=== PATIENT | female | born 1980 | race Caucasian/White ===

== ENCOUNTER 2017-12-24 15:32 | Emergency (ER) | payer OTHER, SELFPAY ==
[2017-12-24 15:34] VITALS: BP 196/114; PULSE 79; RESP 18; TEMP 36.5; O2SAT 99; BMI 34.7
[2017-12-24 15:47] VITALS: PULSE 74; RESP 20; O2SAT 99
--- NOTE | 2017-12-24 15:47 | EKG12_ITS ---
Test Reason : DIZZINESS Blood Pressure : / mmHG Vent. Rate : 067 BPM Atrial Rate : 067 BPM P-R Int : 172 ms QRS Dur : 090 ms QT Int : 406 ms P-R-T Axes : 034 010 042 degrees QTc Int : 429 ms Normal sinus rhythm Normal ECG No previous ECGs available Confirmed by TEO TIDWELL MD ([id number]), technical editor RAYSHAWN ESCALANTE ([id number] on 01/03/2018 3:29:51 PM Referred By: HAILEE
--- NOTE | 2017-12-24 15:59 | ED.RN ---
NO OLD EKG
[2017-12-24] MEDS: 0.9% Normal Saline 1,000 ML 150 ML IV (16:09)
--- NOTE | 2017-12-24 16:16 | ED.VISSUMM ---
- ER Visit Summary Date of Service: 12/24/17 Chief Complaint: Lightheaded and dizzy History of Present Illness: The patient is a 37 F with no primary care physician. She reports that she has had episodes where she has been dizzy over the past week. She still does describe this as a spinning sensation. She states that it resolves with sitting down. She reports she has left ear pain that is 3 out of 10 in severity. No ringing or roaring in her ears. No change in her hearing. No double vision or slurred speech. She does report that she is nauseated during these episodes, but has not vomited. They last minutes at a time. No personal history of DVT or recent travel. She is not on control pills. No ankle swelling or calf pain. She reports that she has been lightheaded. This does seem to worsen when she is standing and exerting herself. She feels more short of breath than usual. She denies any chest pain or cough. She does report that she is having intermittent palpitations. She describes these as a fluttering that lasts minutes at a time and occur multiple times per day. She has had no fever or chills. Complains of a sore throat that is 3 out of 10 severity. Denies any abdominal pain, vomiting, diarrhea, melena, or hematochezia. She complains of a headache that has been present for the past 2 weeks. Is 2 out of 10 severity at this time. Is 9 out of 10 at worst. She has had similar headaches previously. She was seen at the urgent care and was told that she has a heart murmur. This had not been documented previously and she was sent to the emergency department for evaluation. Physical Examination: Vitals: Stable. Afebrile. General: Well-nourished and well-developed. Head: Normocephalic atraumatic. HEENT: TMs show serous effusions bilaterally with no evidence of otitis media. Auditory canals are normal. No pharyngeal erythema or tonsillar exudate. No cervical lymphadenopathy. Neck: Supple, no lymphadenopathy. No JVD. Nontender. Cardiovascular: Regular rate and rhythm. No murmurs. Respiratory: No respiratory distress. Clear to auscultation bilaterally. Abdominal: Soft, nontender, nondistended, normal bowel sounds. No guarding, rebound, or peritoneal signs. Back: Nontender. Extremities: Nontender, no edema. Skin: Normal color, erythematous rash to the maxilla bilaterally. Neurologic: Alert and oriented ?3. Cranial nerves II through XII are intact. Normal strength and sensation. Psych: Normal affect. Test Results: EKG is sinus at 67 with no acute changes. There is no old EKG for comparison. CBC is normal. Chem-7 is normal. Troponin is negative. test is negative. Chest x-ray is normal. Emergency Department Course and Treatment: I discussed the heart murmur with the patient. I do not hear a murmur. I had the patient hold her breath and I still do not hear a murmur. The patient had negative orthostatic vital signs while here. However, her blood pressure was elevated throughout. Repeat blood pressure while at rest is 160/95. Treatment Plan: I had a prolonged discussion with patient about possibility of starting antihypertensive medications. She reports that at home her blood pressure typically runs 120/80 and she does not want to be placed on his medications at this time. She will be discharged instructions to follow-up Dr. Gill, whose Was for no doc, in 1 week for repeat evaluation of her blood pressure. Return to the emergency department for any worsening symptoms or concerns. Disposition: To home in improved and stable condition. Impression: 1. Hypertension. 2. Vertigo, peripheral. 3. Serous effusions bilaterally. This note was generated with [employer] dictation software. It may contain incorrect words, spelling, and punctuation that were not noted in review of the chart prior to signing ED Disposition - Plan for ED Patient: Disposition: Home or Assisted Living Chief Complaint: Dizziness Instructions: ED Hypertension Poss Referrals: Niki Hill MD [STAFF PHYSICIAN] - 1 Week
--- NOTE | 2017-12-24 16:20 | RAD_ITS ---
STUDY: X-RAY CHEST REASON FOR EXAM: Female, 37 years old. Dizziness TECHNIQUE: PA and lateral views of the chest. COMPARISON: None. FINDINGS: No focal consolidation is visualized. There are EKG leads overlying the thorax. Normal size heart. Normal mediastinum and ricky. Normal visualized pulmonary arteries. Normal visualized aortic arch and descending thoracic aorta. Normal visualized thoracic spine. Normal visualized ribs, clavicles, and shoulders. There is no demonstrated abnormality of the visualized soft tissue structures of the upper abdomen. RAD/Chest PA and Lateral IMPRESSION: No acute cardiopulmonary process. Electronically Signed: Gabi Valderrama MD at 16:59 EST Tel , Service support ,
[2017-12-24 16:39] LABS: Absolute Lymphocyte Count 3.08 X10^3/ul (0.83-4.51); Absolute Neutrophil Count 4.3 X10^3/uL (2.0-7.7); Basophil# 0.02 X10^3/uL; Basophil% 0.2 % (0-1); Eosinophil# 0.27 X10^3/uL; Eosinophils% 3.2 % (0-5); Hematocrit 43.1 % (37-47); Hemoglobin 14.8 g/dl (12.0-15.0); Lymphocyte # 3.08 X10^3/ul (4.0); Lymphocyte % 36.9 % (19-41); Mean Corp Hgb Conc 34.3 g/gl (32-36); Mean Corpuscular Hgb 28.8 pg (27.0-32.0); Mean Corpuscular Volume 83.9 fL (81-99); Mean Platelet Vol. 10.3 fl (6.2-12.0); Monocyte# 0.62 X10^3/uL; Monocyte% 7.4 % (0-10); Neutrophil # 4.34 X10^3/uL (2.7-7.7); Neutrophil % 52.1 % (47-70); Platelet Count 246 K/mm3 (150-450); RBC Distribution Width CV 13.1 % (11.6-14.6); Red Blood Count 5.14 M/mm3 (4.2-5.4); White Blood Count 8.4 K/mm3 (4.4-11.0)
[2017-12-24 16:41] LABS: POSITIVE COUNT NO; POSITIVE DIFFERENTIAL NO; POSITIVE MORPHOLOGY NO
[2017-12-24 16:42] VITALS: BP 183/107; BP 205/106; BP 219/124; PULSE 68; PULSE 73; PULSE 76
[2017-12-24 16:57] LABS: Anion Gap 8 (5-15); BUN 10 mg/dL (7-18); BUN/Creat Ratio 13.9 RATIO (10-20); Chloride 105 mmol/L (98-107); Creatinine, Serum 0.72 mg/dL (0.55-1.02); EST Glomerular Filtration Rate 96 mL/min (>60); Est Glom Filt Rate - Afr Amer 116 mL/min (>60); Estimated Creatinine Clearance 99.18 ml/min; Glucose 79 mg/dL (74-106); Potassium 3.5 mmol/L (3.5-5.1); Sodium Level 139 mmol/L (136-145)
[2017-12-24 16:58] LABS: Pregnancy, Serum, hCG Quali. NEGATIVE Negative (0-9 Nonpreg)
[2017-12-24 17:52] VITALS: BP 160/95; PULSE 78; RESP 17; O2SAT 97
== END 2017-12-24 17:58 | disposition home or self-care (01) ==
PROVIDERS: Emergency Provider Emergency Medicine
DX: I10 Essential (primary) hypertension (principal); R42 Dizziness and giddiness; R21 Rash and other nonspecific skin eruption; H65.93 Unspecified nonsuppurative otitis media, bilateral
CPT/HCPCS: 71046; 80048; 84484; 84703; 85025; 93005; 96360; 96361; 99285; J7030; A4216

== ENCOUNTER → 2018-01-18 11:29 | Outpatient (CLI) | payer OTHER, SELFPAY ==
[2018-01-18 11:34] LABS: Bacteria 0 SEEN /hpf (None Seen); Red Blood Cells-Urine 0 SEEN /hpf (0-5); White Blood Cells 0 SEEN /hpf (0-5)
[2018-01-18 14:25] LABS: Hemoglobin A1c 5.4 % (4.2-6.3)
[2018-01-18 14:29] LABS: AST(SGOT) 16 U/L (15-37); Alanine Aminotransfer ALT/SGPT 37 U/L (13-56); Alkaline Phosphatase 83 U/L (45-117); Bilirubin, Direct 0.06 mg/dL (0.00-0.30); Cholesterol 221 mg/dL (200); Globulin 3.8 g/dL (2.2-4.2); High Density Lipoprotein 49 mg/dL; Protein, Total 7.8 g/dL (6.4-8.2); Thyroid Stim Hormone (TSH) 0.97 uIU/mL (0.358-3.74); Triglycerides 239 mg/dL; Very Low Density Lipoprotein 48 mg/dL (5-40)
[2018-01-18 15:51] LABS: Color, Urine Yellow (Yellow); Glucose, Dipstick Normal (Normal); Ketone-Dipstick Negative (Negative); Leukocyte Esterase-Dipstick Negative /ul (Negative); Nitrite-Dipstick Positive (Negative); Occult Blood-Urine Negative /ul (Negative); Protein-Dipstick Negative (Negative); Specific Gravity, Urine 1.015 (1.002-1.030); Urine Bilirubin Dipstick Negative (Negative); Urine Clarity Clear (Clear); Urine Urobilinogen Normal (Normal)
[2018-01-18 16:14] LABS: Mucous, Urine 1+ /hpf (<or=2+); Squamous Epithelial Cells - UA 0-5 SEEN /hpf (5-10)
== END ==
PROVIDERS: Family Provider Family Medicine; PCP Family Medicine; Visit Provider Family Medicine
DX: E66.9 Obesity, unspecified (principal); Z86.32 Personal history of gestational diabetes; I10 Essential (primary) hypertension
CPT/HCPCS: 36415; 80061; 80076; 81001; 83036; 84443

== ENCOUNTER 2023-11-19 05:12 | Day surgery (SDC) | payer OTHER, SELFPAY ==
--- NOTE | 2023-11-08 11:53 | PCM.HP.BLA ---
History and Physical Date of Admission: 11/19/23 The patient is a 43 year old female presenting for pre-operative visit. She is scheduled for TLH, bilateral salpingectomy and cystocopy, for menorrhagia, dysmenorrhea, plevic pain and adenomyosis on 11/19/23. Procedure discussed along with risks, benefits and complications. Other alternatives discussed for management. Consent form signed? Yes. ? ? PAST MEDICAL HISTORY PAST MEDICAL HISTORY Diagnosis Date ? Abnormal Pap smear of cervix ? ? Skin cancer ? ? squamous cell on chest ? ? PAST SURGICAL HISTORY PAST SURGICAL HISTORY Procedure Laterality Date ? DELIVERY ONLY ? ? ? , low cervical- x2 ? COLPOSCOPY CERVIX UPPER/ADJACENT VAGINA ? 2002 ? Colposcopy-with cryo ? CONIZATION CERVIX W/WO D&C RPR ELTRD EXC ? 06/05/2003 ? LEEP-Cervix ? INSERTION OF IUD ? 02/2023 ? PAST SURGICAL HISTORY OF ? 10/2008 ? removal of skin cancer on chest ? PAST SURGICAL HISTORY OF ? 05/2009 ? Right Foot Surgery ? TUBAL LIGATION ? CURRENT MEDICATIONS Current Outpatient Medications Medication Sig Dispense Refill ? valACYclovir (VALTREX) 500 mg tablet Take 1 tablet by mouth once daily. 1 tablet twice daily prn outbreak x 3d then 1 daily for suppression 90 tablet 3 ? levonorgestrel (MIRENA) 21 mcg/24 hours (8 yrs) 52 mg IUD 1 Each by INTRAUTERINE route as directed. 1 Each 0 ? No current facility-administered medications for this visit. ? ? ALLERGIES: Sulfa (Sulfonamide Antibiotics) ? PERSONAL HISTORY: SOCIAL HISTORY Social History ? Tobacco Use ? Smoking status: Former ? ? Packs/day: 0.50 ? ? Years: 18.00 ? ? Additional pack years: 0.00 ? ? Total pack years: 9.00 ? ? Types: Cigarettes ? ? Quit date: 09/16/2010 ? ? Years since quittin.1 ? Smokeless tobacco: Never Vaping Use ? Vaping Use: Never used Substance Use Topics ? Alcohol use: Yes ? ? Comment: Rare,NOT WHILE ? Drug use: No ? FAMILY HISTORY: FAMILY HISTORY FAMILY HISTORY Problem Relation Age of Onset ? Hypertension Mother ? ? Emphysema Mother ? ? Thyroid Mother ? ? other (covid) Father ? ? Hypertension Brother ? ? Emphysema Maternal Grandfather ? ? ? REVIEW OF SYMPTOMS: GENERAL: denies fevers or chills ENDOCRINOLOGY: has not been on steroids Cardiology : denies palpitations or chest pain Respiratory: denies SOB or cough Hematology: denies history of prolonged bleeding or easy bruising or VTE Allergy: Denies history of personal or family history of allergy to anesthesia ? PHYSICAL EXAMINATION: ? VITALS: Blood pressure 136/92, pulse 86, resp. rate 16, height 5' 6 (1.676 m), weight 197 lb (89.4 kg), last menstrual period 10/02/2023, SpO2 99%. ? GENERAL: The patient is well nourished, well hydrated in no acute distress. , The patient is oriented to time, place, and person. NECK: Supple. No lynphadenopathy, normal thyroid, no thyromegaly. LUNGS: Clear to auscultation bilaterally. no wheezes, rhonchi or rales HEART: Regular rate and rhythm, Normal heart sounds, and No murmurs or gallops ? Pap 01/2022 neg ? EMB- 02/2023 benign pelvic US 09/2023: ? Uterus: -Size: 9.8 x 4.8 x 5.7 cm -Orientation: Anteverted -Endometrial echo complex: Evaluation of the endometrium was adequate. No endometrial abnormality. The endometrial echo complex measured 0.7 cm. IUD is in good position within the endometrium -Cervix: Nabothian cysts present, otherwise unremarkable. ?Additional echogenic foci within the cervix with shadowing may represent calcific foci -Adenomyosis assessment: Globular uterine shape. ?Heterogeneous myometrium.. ?Myometrial or endometrial interface is indistinct. -Fibroids: There are no fibroids. Right Ovary: 2.8 x 2.3 x 2.2 cm Normal appearance Left Ovary: 3.7 x 2.4 x 2.4 cm Normal appearance ? IMPRESSION: menorrhaiga, dysmenorrhea, pelvic pain and adenomyosis ? PLAN: The risks/benefits/alternatives and personal involved for the planned TLH, bilateral salpingectomy and cystoscopy were reviewed with the patient. Her questions were answered to her satisfaction and she desires to proceed. Consent was signed. I reviewed with her postop instructions and expectations. ? ? I have reviewed and updated past medical and surgical history, medications and allergies Assessment & Plan Assessment/Plan (1) Menorrhagia: (2) Dysmenorrhea: (3) Chronic pelvic pain in female: (4) Adenomyosis:
[2023-11-15 08:40] LABS: Absolute Lymphocyte Count 2.43 X10^3/uL (0.83-4.51); Absolute Neutrophil Count 4.3 X10^3/uL (2.0-7.7); Basophil# 0.02 X10^3/uL; Basophil% 0.3 % (0-1); Eosinophils% 1.4 % (0-5); Hematocrit 42.4 % (37-47); Lymphocyte # 2.43 X10^3/ul (0.83-4.51); Lymphocyte % 33.1 % (19-41); Mean Corpuscular Hgb 28.2 pg (27.0-32.0); Mean Corpuscular Volume 85.3 fL (81-99); Mean Platelet Vol. 10.3 fl (6.2-12.0); Monocyte# 0.49 X10^3/uL; Monocyte% 6.7 % (0-10); NRBC Flagged by Analyzer 0 % (0-5); Neutrophil # 4.28 X10^3/uL (2.7-7.7); Neutrophil % 58.2 % (47-70); Platelet Count 243 K/mm3 (150-450); RBC Distribution Width CV 12.8 % (11.6-14.6); RBC Distribution Width SD 39.6 fl (35.1-43.9); Red Blood Count 4.97 M/mm3 (4.2-5.4); White Blood Count 7.3 K/mm3 (4.4-11.0)
[2023-11-15 09:09] LABS: Magnesium 2.2 mg/dL (1.6-2.6)
[2023-11-19] VITALS (10 sets, daily range): BP systolic 112–140; BP diastolic 68–88; PULSE 45–84; RESP 16; TEMP 36–36.9; O2SAT 92–100; BMI 32.3
[2023-11-19 05:49] LABS: Internal QC Validated? YES +Cl - CLEAR BKGD; Pregnancy, Urine Negative Negative
[2023-11-19] MEDS: Lactated Ringers 1,000 ML 40 ML IV (05:59)
[2023-11-19] MEDS: Phenazopyridine 95 MG Tablet 190 MG PO (05:59)
[2023-11-19] MEDS: Magnesium 1 GM over 15 mins IV (05:59)
[2023-11-19] MEDS: Gabapentin 600 MG Tablet PO (06:00)
[2023-11-19] MEDS: Enoxaparin 40 MG/0.4 ML Syringe SC (06:00)
[2023-11-19] MEDS: Acetaminophen 500 MG Tablet 1000 MG PO (06:00)
[2023-11-19] MEDS: Celecoxib 200 MG Capsule 400 MG PO (06:00)
[2023-11-19 06:01] LABS: Bedside Glucose 100 mg/dL (74-106)
[2023-11-19] MEDS: Scopolamine 1mg/72hr Patch 1 PATCH TD (06:01)
[2023-11-19] MEDS: Cefazolin 2 GM in 0.9% Normal Saline (100mL Bag) 100 ML IV (07:30)
--- NOTE | 2023-11-19 07:30 | HYST_PTH ---
PATHOLOGY RESULTS PATIENT: LAURA LAGUERRE LOC: [facility] [place] U#:[id number] AGE/SX: 43/F ROOM: RE11/19/[address]: Dr. Zuleyma Ayon MD : [id number] BED: DIS: 11/19/2023 SPEC #: [id number] RECD: 11/19/23 13:11 STATUS: REHAN GANNON #: [id number] BAMBI: 11/19/23 07:[address]: Zuleyma Ayon DEPT: SURGICAL PATHOLOGY RECD BY: Stephanie Jacobsen ENTERED: 11/19/23 13:51 SP TYPE: HYSTERECT OTHR DR: MD Dr. Jesus Wiley MD Tissues: Uterus, NOS Procedures: Surgery Specimen Level V HEADER OPERATION: ERAS, total laparoscopic hysterectomy, bilateral salpingectomy PRE-OP DIAGNOSIS: Menorrhagia, dysmenorrhea, pelvic pain, adenomyosis TISSUE SUBMITTED: Uterus, cervix, bilateral fallopian tubes MICROSCOPIC DIAGNOSIS Uterus, hysterectomy: Cervix - nabothian cysts and minimal chronic inflammation. Endometrium - transition endometrium. Myometrium - adenomyosis. Right and left fallopian tubes - No pathologic change. AM:deanna 11/22/2023 MICROSCOPIC DESCRIPTION Slides are reviewed. GROSS DESCRIPTION Received in fixative is one container labeled with the patient's name and designated uterus, cervix, bilateral fallopian tubes. The specimen consists of a hysterectomy specimen, previously opened, consisting of uterus with cervix and detached bilateral fallopian tubes. The uterus with cervix weighs 111 gm and measures 10.0 x 5.5 x 5.0 cm. The right cornu shows two Filshie clips. A fallopian tube without Filshie is also present, presumed to be right fallopian tube. The second fallopian tube is present with two Filshie clips and measures 4.0 cm in length and 0.5 cm in diameter, presumed to be left. Detached portion of fallopian tube with fimbrial end is present measuring 2.0 cm in length and 0.7 cm in diameter. Two Filshie clips are noted on the presumed left fallopian tube. The Filshie clips are intact. The right fallopian tube measures 3.0 cm in length and 0.8 cm in diameter. The serosal surface is hopkins, glistening and unremarkable. The ectocervical mucosa is unremarkable. The external os is circular in contour. The endocervical canal measures 3.0 cm in length and the endocervical mucosa is hopkins, glistening and unremarkable. Sections of cervix reveal cysts filled with yellowish mucoid material. The triangular endometrial cavity measures 5.0 cm in length and up to 2.5 cm in width. The endometrium is hopkins, glistening without any mass lesion and measures 0.1 cm in thickness. Sections of the uterine wall do not reveal any mass lesion and measures up to 2.5 cm in thickness. The presumed right fallopian tube measures 3.5 cm in length and 0.7 cm in diameter. Sections reveal unremarkable cut surfaces. Sections of presumed left fallopian tube reveal unremarkable cut surfaces. Diamond Die Driller sections are submitted in eight cassettes as follows: 1 - anterior cervix, 2 - posterior cervix, 3 & 4 - anterior uterine wall, 5 & 6 - posterior uterine wall, 7 - presumed right fallopian tube, 8 - presumed left fallopian tube. / MAX:deanna 11/19/2023 TC:5 CPT: 32707
[2023-11-19] MEDS: Bupivacaine Mpf 0.5% 30 ML VIAL (08:05)
--- NOTE | 2023-11-19 09:33 | DCINST_ITS ---
Discharge Instructions Diet Discharge Diet: Light diet - advance as tolerated Activity Discharge Activity: May Not Drive (while on pain medications) and May Shower (on 11/20/23) May resume sexual activity in: 6-8 weeks and - (Nothing in your vagina for 6 weeks. No vaginal or anal intercourse for 6-8 weeks) Dressing / Incision Call your doctor if your incision/area has: Continuous Slow Oozing Call your doctor if you observe: Fever of 101 or Higher, Inability to urinate and Using more than 1 pad per hour Remove Dressing in: leave until fall off Cleanse incision/area with: - (Your incisions have skin glue, it can get wet, leave the glue on until it falls off. You can wash with soap and water) Follow Up Care Please Follow Up With: Zuleyma Ayon MD When: With my office in 1a nd 6 weeks or as needed. Call [phone] or send a [employer] message for non urgent issues Test Results: Test results from this visit will be discussed in further detail at your follow- up appointment, if applicable. Discharge Plan Admission Primary Reason for Your Visit: Laparoscopic Hysterectomy with bilateral salpingectomy Attending Provider: Zuleyma Ayon Primary Care Provider: Jesus Fountain Consulting Providers: Yaniv Moreau Discharge Orders/Prescriptions Prescriptions: New ibuprofen [ibuprofen] 600 MG tablet 600 mg PO Q6H PRN (Reason: Pain) 20 Days Qty: 40 1RF oxycodone 5 MG tablet 5 mg PO Q6H PRN PRN (Reason: severe pain) 5 Days Qty: 10 0RF acetaminophen [Acetaminophen Extra Strength] 500 mg tablet 1,000 mg PO Q6H PRN (Reason: fever or pain) 20 Days Qty: 40 1RF Referrals / Follow Up: Jesus Fountain MD [Primary Care Provider] - Disposition Disposition (needs filled in before D/C Order can be placed): Home, Self Care
--- NOTE | 2023-11-19 09:35 | OP.PCM_ITS ---
Problems Associated Problem List Diagnoses (1) Adenomyosis: (2) Chronic pelvic pain in female: (3) Dysmenorrhea: (4) Menorrhagia: Report of Operation Date of Procedure: 11/19/23 Pre-Operative Diagnosis: Adenomyosis, chronic pelvic pain, Dysmenorrhea, menorrhagia Post-Operative Diagnosis: Same Surgery/Procedure Performed:: TLH, bilateral salpingectomy Description of Surgical Findings:: normal sized uterus and cervix, normal vagina Surgeon: Zuleyma Ayon mechanical engineering technician: Anne Dent mechanical engineering technician: Misha Cifuentes [id number] Type of Anesthesia: General Anesthesiologist: Bora Zapata Special Medications: none Specimen's removed: bilateral fallopian tubes, cervix and uterus Drains: none Estimated Blood Loss (mL): 100 Fluids Replaced: 1500 Description of Procedure: The patient was taken to the operating room where she was prepped and draped in the dorsal lithotomy position. Her arms were tucked to the side and padded and her legs were placed in the yellowfin stirrups. Care was taken to ensure that she was placed in a neurologically safe and neutral position. A weighted speculum was placed in the vagina and the anterior lip of the cervix was grasped with a single-tooth tenaculum. The cervix sounded to 9 centimeters. 2-0 Vicryl sutures were secured to the cervix at 3 and 9:00. The uterine remotely piloted vehicle controller 3 cm size was placed into the cervix and the balloon inflated. The stay sutures were placed through the cup and secured down to the cervix. A Lopez was placed to straight drain. Attention was turned to the abdominal portion of the case. Before skin incisions were made they were infiltrated with 0.5% Marcaine solution for local anesthetic. A 5 mm intraumbilical incision was made and while tenting the anterior abdominal wall up with towel clamps a 5 mm blade less trocar and sleeve were advanced directly into the peritoneal cavity using the Visiport. Peritoneal placement was confirmed with the laparoscope the pneumoperitoneum was created, and the underlying abdominal contents were intact. The patient was placed in Trendelenburg and the above findings were noted. Right and left lateral 5 mm trochars were placed under direct visualization without difficulty. The antimesenteric portion of the tube was clamped sealed and transected serially on both sides with the LigaSure device. The round ligaments were clamped sealed and transected and a window was made in the peritoneum. The utero-ovarian ligaments were then clamped sealed and transected with the LigaSure device and the pedicles were hemostatic The bladder flap was dissected down with the LigaSure device and blunt dissection and the uterine arteries were then skeletonized. The uterine arteries were clamped sealed and transected on both sides with the LigaSure device. Then along the cardinal ligament uterine arteries adjacent to the cervix were clamped sealed and transected with the LigaSure device to move them away from the vaginal cuff angle. At this point the pedicles were all examined and found to be hemostatic. The bladder flap was rechecked and found to be adequately down. The monopolar tip of the LigaSure device was then used to enter the anterior vagina. The vaginal manipulator cup was noted in the vaginal colpotomy incision was made circumferentially around the cup. When the 3 and 9:00 positions of the cervicovaginal junction were reached these were clamped sealed and transected with the LigaSure device to secure any small remaining vessels. At this point the pedicles were hemostatic from above and attention was turned to the vaginal portion of the case again. The uterus was brought intact out through the vaginal colpotomy incision along with the tubes There was a bleeding blood vessel on the right side of the vaginal cuff which was clamped, oversewn with a suture ligature and secured and was hemostatic. Vaginal angle sutures were placed on both sides with 0 Vicryl sutures and care was taken to ensure that the uterosacral ligament was secured into this stitch. The remainder the vagina was then closed horizontally with interrupted 0 Vicryl sutures. The cuff was hemostatic vaginally. The Lopez catheter was removed and a cystoscopy was performed. The bladder appeared normal and was intact. Both ureteral orifices were noted and both ureteral jets were seen. The cystoscope was removed and the Lopez catheter was placed back to straight drain. A sponge stick was placed in the vagina to help place traction against the vaginal cuff and the pneumoperitoneum was re-created. The suction government minister was used to remove any blood and clots from the peritoneal cavity. The pedicles were reexamined and found to be hemostatic. The vaginal cuff was hemostatic. Some hemoblast was placed over the cuff and the pedicles and no active bleeding was noted through the [place]. The right and left lateral ports were taken out and the sites were hemostatic. The pneumoperitoneum was released and even under low pressure there was no bleeding of any of the pedicles are vaginal cuff. The umbilical port was removed. The umbilical skin incisions were closed with Monocryl suture and skin glue by Dr. Izaguirre. The vaginal instruments were removed by me and a vaginal sweep was completed by me. The surgery was performed by me with assistance other than the portions dictated as above. There were no qualified residents available for this procedure. All sponge lap and needle counts were correct and the patient was transferred to the recovery room in stable condition. Dr. Izaguirre help with tissue manipulation, camera guidance, and port placement and closure. No qualified residents were available for the procedure. Grafts/Implants Used: none Procedure Start Time: 07:55 Procedure Stop Time: 09:36 Complications none Admit VTE Documentation VTE Present on Admission: No VTE Mechan Device Prophylaxis: SCD's VTE Pharm Prophylaxis ordered?: No Reason prophylaxis not ordered:: Procedure Not Indicated
== END 2023-11-19 12:56 | disposition home or self-care (01) ==
LOC: SDC 05:12 → AC 05:14
PROVIDERS: Anesthesiology; PCP Family Medicine; Referring Provider Obstetrics & Gynecology; Visit Provider Obstetrics & Gynecology
PROC: 0UT94ZZ Resection of Uterus, Percutaneous Endoscopic Approach (ICD-10-PCS; CPT 58571; principal; 2023-11-19 07:10)
DX: N80.03 Adenomyosis of the uterus (principal); N92.0 Excessive and frequent menstruation with regular cycle; N94.6 Dysmenorrhea, unspecified; R10.2 Pelvic and perineal pain; G89.29 Other chronic pain; Z87.891 Personal history of nicotine dependence
CPT/HCPCS: 58571; 00840; 36415; 81025; 82962; 83735; 85025; 86850; 86900; 86901; 88307; J7120; J2405; J3475

== ENCOUNTER 2023-11-23 10:36 | Observation (INO) | payer OTHER, SELFPAY ==
[2023-11-23] VITALS (8 sets, daily range): BP systolic 117–149; BP diastolic 61–94; PULSE 56–72; RESP 14–64; TEMP 36.2–36.9; O2SAT 98–100; BMI 33.3; BMI 32.5
--- NOTE | 2023-11-23 11:14 | CT_ITS ---
STUDY: CT ABDOMEN AND PELVIS WITH CONTRAST REASON FOR EXAM: Female, 43 years old. Laparoscopic hysterectomy 11/19. Increased lower abdominal pain. RADIATION DOSAGE (If Supplied By Facility): CTDIvol = ( 19.06 ) mGy, DLP = ( 1141.61 ) mGycm TECHNIQUE: Transaxial images were obtained from the dome of the diaphragm to the symphysis pubis without oral contrast. ml of 100mL Isovue-300 contrast was administered. Sagittal and coronal images were reconstructed. Individualized dose optimization techniques were used for this CT. COMPARISON: Laparoscopic hysterectomy 11/19. Increased lower abdominal pain. FINDINGS: Trace bilateral pleural effusions are present in the lung bases. A small amount of perihepatic ascites is present. A small to moderate amount of ascites is present in the pelvis.. Small amounts of free air in the pelvis is consistent with recent surgical intervention. No encapsulated fluid collection is seen to suggest an abscess. Status post hysterectomy. Unremarkable bilateral adnexal regions. Curvilinear focus of high density seen adjacent to the right ovary could represent a small focus of hemorrhage although there is no visualized hemorrhage distal to this region or proteinaceous or hemorrhagic contents within a right ovarian cyst incompletely visualized on this study. Normal liver. There is a solitary gallstone. Normal spleen. Normal pancreas. Normal bilateral adrenal glands. Normal right kidney. Normal left kidney. Normal visualized stomach. Normal small intestine. Normal colon. The appendix is visualized and appears normal. There is no evidence of small bowel ileus or bowel obstruction. There is diffuse atherosclerotic calcification of the abdominal aorta, without a demonstrated aneurysm. Normal inferior vena cava. Normal retroperitoneum. Normal urinary bladder. Normal abdominal wall. Normal osseous structures. CT/Abdomen/Pelvis W IV Cont ONLY IMPRESSION: 1. A small amount of perihepatic ascites is present. A small to moderate amount of ascites is present in the pelvis.. Small amounts of free air in the pelvis is consistent with recent surgical intervention. No encapsulated fluid collection is seen to suggest an abscess. Status post hysterectomy. Unremarkable bilateral adnexal regions. 2. Curvilinear focus of high density seen adjacent to the right ovary could represent a small focus of hemorrhage although there is no visualized hemorrhage distal to this region or proteinaceous or hemorrhagic contents within a right ovarian cyst incompletely visualized on this study. 3. Gallstone. Electronically Signed: Dat Woods MD at 12:59 EST ,
--- NOTE | 2023-11-23 11:15 | EX.ED.DYSGE1 ---
HPI <LAMONTE Denton - Last Filed: 11/23/23 17:14> History of Present Illness Chief Complaint: Abd Pain Narrative Narrative: Patient is a 43-year-old female with no significant medical history who presents to the emergency department for lower abdominal pain. Patient had a hysterectomy 4 days ago on November [address] Gabo robledo at [facility]. Patient states that she was doing well, she got up this morning to use the restroom, when she got up and urinated, she felt a tearing sensation in her abdomen. Patient dates the pain was unbearable, she had to call the ambulance. The EMS gave her 4 mg of Zofran, 1 mg of Dilaudid. Patient does feel better, patient did have some low blood pressures in the squad. Patient states while she is at rest, she is not in any significant distress, patient has worsening pain to the left side. Denies any fever chills nausea or vomiting. PFSH <LAMONTE Denton - Last Filed: 11/23/23 17:14> [facility] Medical History (Updated 11/23/23 @ 16:[address] Russell Renee MD) Broken teeth Cancer Fatty liver Former smoker Heartburn Wears glasses Home Medications acetaminophen 500 mg tablet (Acetaminophen Extra Strength) 1,000 mg (2 x 500 mg) PO Q6H PRN FEVER/PAIN 20 days #40 tabs 11/19/23 [Rx Last Taken 11/22/23] ibuprofen 600 mg tablet 600 mg PO Q6H PRN PAIN 20 days #40 TABLETS 11/19/23 [Rx Last Taken 11/22/23] oxycodone 5 mg tablet 5 mg PO Q6H PRN SEVERE PAIN 11/23/23 [History Last Taken Unknown] Allergy/AdvReac Type Severity Reaction Status Date / Time Sulfa (Sulfonamide Allergy Anaphylaxis Verified 11/19/23 05:46 Antibiotics) Surgical History (Updated 11/23/23 @ 11:14 by Debbie Rod) History of section History of foot surgery History of surgical removal of skin lesion History of wisdom tooth extraction S/P partial hysterectomy Social History Smoking Status: Former smoker ROS <LAMONTE Denton - Last Filed: 11/23/23 17:14> ROS ED ROS Narrative Constitutional: Negative for fever, chills, weight loss, weakness Eyes: Negative for vision loss, vision change, double vision ENT: Negative for any sore throat, ear pain, congestion Cardiovascular: Negative for any chest pain, tightness, palpitations Respiratory: Negative for any cough, sputum production, hemoptysis, dyspnea, dyspnea on exertion, orthopnea Gastrointestinal: Negative for any vomiting, diarrhea, constipation, blood in stool, blood in vomit. Positive for abdominal pain, nausea : Negative for any urinary frequency, dysuria, retention, blood in urine Muscle skeletal: Negative for any myalgias, arthralgias, neck pain, back pain Neurological: Negative for any headache, syncope, paresthesias, dizziness Skin: Negative for any rashes, lumps, itching, abrasions, lacerations Psychiatric: Negative for any depression, anxiety, stress, suicidal ideation, homicidal ideation Hematologic: Negative for any easy bruising, excessive bruising, easy bleeding Allergies: Negative for any eczema, hives, rash EXAM <LAMONTE Denton - Last Filed: 11/23/23 17:14> Physical Exam Narrative Exam Narrative: Vital signs reviewed. HEET: Head normocephalic atraumatic, TMs clear bilaterally. Posterior pharynx is clear, moist mucous membranes. Nares clear bilaterally. Neck: Supple with no lymphadenopathy or tenderness. No signs of meningismus. Cardiac: Regular rate and rhythm no murmurs gallops or rubs, equal peripheral pulses bilaterally. Respiratory: Lungs clear to auscultation bilaterally. No chest tenderness. Abdomen: Soft, nondistended. No abdominal bruit or pulsatile masses. No hepatosplenomegaly. Patient has diffuse abdominal pain, patient's surgical incisions look well-appearing, there is no significant redness, there is no peritoneal signs, patient's belly is soft. Patient is active bowel sounds. No evidence of any drainage or cellulitis. Extremities: No peripheral edema, no signs of gross trauma or deformity. Active full range of motion of all extremities. Neuro: Cranial nerves II through XII intact, no focal neurological deficits. Skin: Clean dry and intact with no rash, purpura, petechiae, vesicles or pustules. Backs/flank: No CVA tenderness, no midline spinal tenderness, no deformity. Psych: Normal mood and affect. No SI, HI or acute psychosis. Const Vital Signs: 11/23/23 10:36 11/23/23 11:11 11/23/23 11:59 Temperature 97.1 F L Temperature Source Temporal Pulse Rate 56 L 67 62 Respiratory Rate 16 64 H 16 Blood Pressure 125/78 H 125/80 H 135/71 H Blood Pressure Mean 93 95 92 Pulse Ox 98 99 100 Oxygen Delivery Method Room Air Room Air 11/23/23 13:00 11/23/23 14:16 11/23/23 15:43 Temperature 98.4 F 97.5 F L Temperature Source Temporal Pulse Rate 72 72 65 Respiratory Rate 16 16 16 Blood Pressure 117/61 140/94 H 128/82 H Blood Pressure Mean 79 109 97 Pulse Ox 98 98 98 Oxygen Delivery Method Room Air Room Air Positive well nourished and well developed General Appearance ED: well developed <Dr. Russell Renee MD - Last Filed: 11/23/23 16:09> Physical Exam Const Vital Signs: 11/23/23 10:36 11/23/23 11:11 11/23/23 11:59 Temperature 97.1 F L Temperature Source Temporal Pulse Rate 56 L 67 62 Respiratory Rate 16 64 H 16 Blood Pressure 125/78 H 125/80 H 135/71 H Blood Pressure Mean 93 95 92 Pulse Ox 98 99 100 Oxygen Delivery Method Room Air Room Air 11/23/23 13:00 11/23/23 14:16 11/23/23 15:43 Temperature 98.4 F 97.5 F L Temperature Source Temporal Pulse Rate 72 72 65 Respiratory Rate 16 16 16 Blood Pressure 117/61 140/94 H 128/82 H Blood Pressure Mean 79 109 97 Pulse Ox 98 98 98 Oxygen Delivery Method Room Air Room Air MDM <LAMONTE Denton - Last Filed: 11/23/23 17:14> [facility] Lab Data Labs: Laboratory Results - last 24 hr 11/23/23 11/23/23 11:35 12:55 WBC 11.4 H RBC 4.86 Hgb 13.8 Hct 41.9 MCV 86.2 MCH 28.4 MCHC 32.9 RDW Std Deviation 40.3 RDW Coeff of Jessica 13.1 Plt Count 208 MPV 10.4 Immature Gran % (Auto) 0.300 Neut % (Auto) 76.4 H Lymph % (Auto) 12.9 L Forest % (Auto) 6.3 Eos % (Auto) 3.8 Baso % (Auto) 0.3 Absolute Neuts (auto) 8.7 H Absolute Lymphs (auto) 1.47 Nucleated RBC % 0 Sodium 139 Potassium 4.3 Chloride 108 H Carbon Dioxide 29.0 Anion Gap 2 L BUN 22 H Creatinine 1.60 H Estim Creat Clear Calc 51.69 Est GFR (MDRD) Af Amer 45 L Est GFR (MDRD) Non-Af 37 L BUN/Creatinine Ratio 13.8 Glucose 102 Lactic Acid 1.3 Calcium 8.7 Total Bilirubin 0.40 AST 17 ALT 39 Alkaline Phosphatase 67 Total Protein 6.5 Albumin 3.2 Globulin 3.3 Albumin/Globulin Ratio 1.0 Lipase 26 Urine Color Yellow Urine Clarity Sl. Cloudy Urine pH 6.5 Ur Specific Romulus 1.010 Urine Protein 15 H Urine Glucose (UA) Normal Urine Ketones Negative Urine Occult Blood 10 H Urine Nitrite Negative Urine Bilirubin Negative Urine Urobilinogen Normal Ur Leukocyte Esterase 25 H Urine RBC 0-5 SEEN Urine WBC 0-5 SEEN Ur Squamous Epith Cells 0-5 SEEN Urine Bacteria 0 SEEN Urine Mucus 0 SEEN Radiography Diagnostic Testing: Clinical Impression(s) from Imaging Studies Abdomen/Pelvis CT 11/23/23 11:14 IMPRESSION: 1. A small amount of perihepatic ascites is present. A small to moderate amount of ascites is present in the pelvis.. Small amounts of free air in the pelvis is consistent with recent surgical intervention. No encapsulated fluid collection is seen to suggest an abscess. Status post hysterectomy. Unremarkable bilateral adnexal regions. 2. Curvilinear focus of high density seen adjacent to the right ovary could represent a small focus of hemorrhage although there is no visualized hemorrhage distal to this region or proteinaceous or hemorrhagic contents within a right ovarian cyst incompletely visualized on this study. 3. Gallstone. Electronically Signed: aDt Woods MD at 12:59 EST , Intravenous Pyelogram 11/23/23 14:50 IMPRESSION: Negative IVP Electronically Signed: Baldev Salcido MD at 15:16 EST , Treatment and Re-Evaluation :: Patient appears to be in no obvious distress on my examination. Patient presents to the emergency department with complaints of abdominal pain, patient is 4 days post full hysterectomy. Patient did have the surgery done here. Differential diagnosis includes free air, abscess formation, postsurgical pain. Patient will receive basic laboratory values CBC, CMP, lipase as well as a lactic acid. CT scan of the abdomen pelvis with IV contrast will be ordered. Patient be given IV fluids. Patient is in a position of comfort after IV Dilaudid, Zofran given by squad. All radiologic examinations were read, reviewed by the emergency department attending. From these reads, a plan of care will be put in place. Patient CT scan shows small amount of perihepatic ascites is present. Small to moderate amount of ascites is present in the pelvis. Small amounts of free air in the pelvis which is consistent with recent surgical intervention. No encapsulated fluid collection is seen to suggest abscess. Curvilinear focus of high density seen adjacent to the right ovary could represent a small focus of hemorrhage although there is no visualized hemorrhage distal to the region of point a cyst or hemorrhagic contents. Gallstones. Patient's laboratory values shows a leukocytosis white blood count 11.4. Chemistry shows slight renal insufficiency with a creatinine of 1.6, patient was given 2 L normal saline. We did reach out to surgery both EXECUTIVE VICE PRESIDENT AND CHIEF OPERATING OFFICER who did the surgery as well as surgery here. The plan is to admit the patient. Patient did receive an intravenous pyelogram, this was a negative examination. At this time, patient is doing well with analgesics, patient will be seen here by surgery. Patient will be admitted. Stable <Dr. Russell Renee MD - Last Filed: 11/23/23 16:09> [facility] Lab Data Labs: Laboratory Results - last 24 hr 11/23/23 11/23/23 11:35 12:55 WBC 11.4 H RBC 4.86 Hgb 13.8 Hct 41.9 MCV 86.2 MCH 28.4 MCHC 32.9 RDW Std Deviation 40.3 RDW Coeff of Jessica 13.1 Plt Count 208 MPV 10.4 Immature Gran % (Auto) 0.300 Neut % (Auto) 76.4 H Lymph % (Auto) 12.9 L Forest % (Auto) 6.3 Eos % (Auto) 3.8 Baso % (Auto) 0.3 Absolute Neuts (auto) 8.7 H Absolute Lymphs (auto) 1.47 Nucleated RBC % 0 Sodium 139 Potassium 4.3 Chloride 108 H Carbon Dioxide 29.0 Anion Gap 2 L BUN 22 H Creatinine 1.60 H Estim Creat Clear Calc 51.69 Est GFR (MDRD) Af Amer 45 L Est GFR (MDRD) Non-Af 37 L BUN/Creatinine Ratio 13.8 Glucose 102 Lactic Acid 1.3 Calcium 8.7 Total Bilirubin 0.40 AST 17 ALT 39 Alkaline Phosphatase 67 Total Protein 6.5 Albumin 3.2 Globulin 3.3 Albumin/Globulin Ratio 1.0 Lipase 26 Urine Color Yellow Urine Clarity Sl. Cloudy Urine pH 6.5 Ur Specific Romulus 1.010 Urine Protein 15 H Urine Glucose (UA) Normal Urine Ketones Negative Urine Occult Blood 10 H Urine Nitrite Negative Urine Bilirubin Negative Urine Urobilinogen Normal Ur Leukocyte Esterase 25 H Urine RBC 0-5 SEEN Urine WBC 0-5 SEEN Ur Squamous Epith Cells 0-5 SEEN Urine Bacteria 0 SEEN Urine Mucus 0 SEEN Radiography Diagnostic Testing: Clinical Impression(s) from Imaging Studies Abdomen/Pelvis CT 11/23/23 11:14 IMPRESSION: 1. A small amount of perihepatic ascites is present. A small to moderate amount of ascites is present in the pelvis.. Small amounts of free air in the pelvis is consistent with recent surgical intervention. No encapsulated fluid collection is seen to suggest an abscess. Status post hysterectomy. Unremarkable bilateral adnexal regions. 2. Curvilinear focus of high density seen adjacent to the right ovary could represent a small focus of hemorrhage although there is no visualized hemorrhage distal to this region or proteinaceous or hemorrhagic contents within a right ovarian cyst incompletely visualized on this study. 3. Gallstone. Electronically Signed: Dat Woods MD at 12:59 EST , Intravenous Pyelogram 11/23/23 14:50 IMPRESSION: Negative IVP Electronically Signed: Baldev Salcido MD at 15:16 EST , Management Discussion w/another healthcare provider: Ultrasonographer (Kacey Combs, Dr. Mckeon (EXECUTIVE VICE PRESIDENT AND CHIEF OPERATING OFFICER)) and Radiologist Treatment and Re-Evaluation Comments:: I have personally performed a face to face assessment of the patient and have reviewed the TIMOTEO Note. I performed a substantive portion of the visit including all aspects of the following. My cohen findings include: History is relatively sudden onset of diffuse abdominal pain this morning. Sitting on the toilet ready to urinate when this started. No recent falls or injuries. 4 days postop laparoscopic transvaginal hysterectomy. Having no pain or bleeding prior to this. Was passing flatus and had a bowel movement yesterday. Exam: Uncomfortable, bilateral mid abdominal significant tenderness with some rebound findings. Hypoactive bowel sounds. Medical Decison Making analgesics, labs and CT, will discuss with EXECUTIVE VICE PRESIDENT AND CHIEF OPERATING OFFICER and possibly surgery depending on the outcome/results. I reviewed the labs, the CT images, as well as the report. This is nonspecific, these could be normal postoperative findings given that she had laparoscopic abdominal surgery, less likely indicative of a perforated viscus that is in the differential as well. Initially discussed with Dr. Mckeon on-call for the group gynecology, who requested an IVP to rule out ureteral injury, this was done, I also reviewed the images and the report for that which I agree with it is negative for any acute leak. Patient doing well after analgesics. Plan is admission with gynecology. Other additions or changes: [None] Discharge Plan Triage Chief Complaint: Abd Pain ED Midlevel Provider: Tery Schuster ED Provider: Russell Renee Dx/Rx/DC Orders Clinical Impression: Diffuse abdominal pain, Postoperative abdominal pain Primary Care Provider: Care Physician,Joana Primary
[2023-11-23] MEDS: 0.9% Normal Saline (1000mL) 1,000 ML 1000 ML IV (11:34)
[2023-11-23 11:43] LABS: Absolute Lymphocyte Count 1.47 X10^3/uL (0.83-4.51); Absolute Neutrophil Count 8.7 X10^3/uL (2.0-7.7); Basophil# 0.03 X10^3/uL; Basophil% 0.3 % (0-1); Eosinophil# 0.44 X10^3/uL; Eosinophils% 3.8 % (0-5); Hematocrit 41.9 % (37-47); Hemoglobin 13.8 g/dL (12.0-15.0); Lymphocyte # 1.47 X10^3/ul (0.83-4.51); Lymphocyte % 12.9 % (19-41); Mean Corp Hgb Conc 32.9 g/dL (32-36); Mean Corpuscular Hgb 28.4 pg (27.0-32.0); Mean Corpuscular Volume 86.2 fL (81-99); Mean Platelet Vol. 10.4 fl (6.2-12.0); Monocyte# 0.72 X10^3/uL; Monocyte% 6.3 % (0-10); NRBC Flagged by Analyzer 0 % (0-5); Neutrophil # 8.73 X10^3/uL (2.7-7.7); Neutrophil % 76.4 % (47-70); Platelet Count 208 K/mm3 (150-450); RBC Distribution Width CV 13.1 % (11.6-14.6); RBC Distribution Width SD 40.3 fl (35.1-43.9); Red Blood Count 4.86 M/mm3 (4.2-5.4); White Blood Count 11.4 K/mm3 (4.4-11.0)
[2023-11-23 12:00] LABS: AST(SGOT) 17 U/L (15-37); Alanine Aminotransfer ALT/SGPT 39 U/L (13-56); Albumin, Serum 3.2 g/dL (3.2-5.0); Alkaline Phosphatase 67 U/L (45-117); Anion Gap 2 (5-15); BUN 22 mg/dL (7-18); BUN/Creat Ratio 13.8 RATIO (10-20); Calcium,Total 8.7 mg/dL (8.5-10.1); Chloride 108 mmol/L (98-107); EST Glomerular Filtration Rate 37 mL/min (>60); Est Glom Filt Rate - Afr Amer 45 mL/min (>60); Estimated Creatinine Clearance 51.69 ml/min; Globulin 3.3 g/dL (2.2-4.2); Glucose 102 mg/dL (74-106); Lipase 26 U/L (13-75); Potassium 4.3 mmol/L (3.5-5.1); Protein, Total 6.5 g/dL (6.4-8.2); Sodium Level 139 mmol/L (136-145)
[2023-11-23 12:07] LABS: Lactic Acid 1.3 mmol/L (0.4-1.9)
[2023-11-23] MEDS: Morphine 4 MG/ML Syringe IV (12:16)
--- OUTSIDE RECORDS SUMMARY | 2023-11-23 12:19 | XMS RPT_ITS | CCD ---
Author Name Unknown Address [address] [place] [address] Organization [facility] Care Team Providers [employer] Name Role Phone Unavailable Primary Care Provider UnavailOdalys Crockett DO Unavailable [phone] NIKI GARCIA Referring Unavailable GARCIA, NIKI Referring Unavailable GARCIA, NIKI Attending Unavailable GARCIA, NIKI Referring Unavailable GARCIA, NIKI Attending Unavailable GARCIA, NIKI Attending Unavailable EDILBERTO BRONSON Attending Unavailable EDILBERTO BRONSON Referring Unavailable AIYANA EDILBERTO Daniel Attending Unavailable PRINCESS COMBS Referring Unavailable JEAN-CLAUDE COMBSSSICA Attending Unavailable Allergies Allergy Classification Reported Allergen(s) Allergy Type Date of Onset Reaction(s) Facility (15 sources) Sulfonamides (Antibiotic); Translations: [SULFA (SULFONAMIDE ANTIBIOTICS)] Drug Allergy 9 Unknown, Hives [facility] (9 sources) Environmental allergies [Other] Propensity to adverse reactions 6 [facility] (9 sources) Grass pollen; Translations: [GRASS POLLEN] Drug Allergy 6 [facility] (1 source) OTHER; Translations: [OTHER] Propensity to adverse reactions (disorder) 6 [facility] Repository Medications Current Medications Medication Drug Class(es) Dates Sig (Normalized) Sig (Original) doxycycline hyclate 100 mg oral tablet (2 sources) Tetracycline-cla ss Drug Start: 04-23-2023 End: 05-03-2023 take 1 tablet by mouth twice daily doxycycline (VIBRA-TABS) 100 mg tablet Indications: Pain due to intrauterine contraceptive device (IUD), initial encounter (HCC) Take 1 tablet by mouth twice daily for 10 days. 20 tablet 0 04/23/2023 05/03/2023 Active Completed/Discontinued Medications Medication Drug Class(es) Dates Sig (Normalized) Sig (Original) acetaminophen 500 mg / diphenhydrAMINE hydrochloride 25 mg oral tablet (13 sources) Histamine-1 Receptor Antagonist End: 10-07-2023 diphenhydrAMINE-Ac etaminophen (TYLENOL PM EXTRA STRENGTH) 25-500 mg tab Take by mouth. 0 10/07/2023 Discontinued Problems Active Problems Problem Classification Problem Date Documented Date Episodic/Chronic Complication of device; implant or graft (1 source) Pain; Translations: [Pain due to genitourinary prosthetic devices, implants and grafts, initial encounter] Episodic Diabetes or abnormal glucose tolerance complicating ; childbirth; or the puerperium (12 sources) Unspecified diabetes mellitus in , unspecified trimester; Translations: [Diabetes mellitus of mother, complicating , childbirth, or the puerperium, antepartum condition or complication] Onset: 03-12-2011 03-12-2011 Chronic Endometriosis (1 source) Uterine adenomyosis; Translations: [Adenomyosis] 10-08-2023 Chronic Menstrual disorders (6 sources) Menorrhagia; Translations: [Excessive and frequent menstruation with regular cycle] Onset: 02-26-2023 Chronic Other and unspecified benign neoplasm (1 source) Leiomyoma; Translations: [Benign neoplasm of connective and other soft tissue, unspecified] Episodic Other female genital disorders (2 sources) Dyspareunia; Translations: [Other specified dyspareunia] Chronic Other female genital disorders (1 source) Pain in female genitalia on intercourse; Translations: [Unspecified dyspareunia] 09-28-2023 Chronic Other female genital disorders (1 source) Vaginal bleeding; Translations: [Postcoital and contact bleeding] 09-28-2023 Chronic Other nutritional; endocrine; and metabolic disorders (2 sources) Obese class I; Translations: [Obesity, unspecified] Onset: 10-07-2023 10-07-2023 Chronic Other screening for suspected conditions (not mental disorders or infectious disease) (4 sources) Cancer cervix screening status; Translations: [Encounter for screening for malignant neoplasm of cervix] Onset: 10-07-2023 Episodic Past or Other Problems Problem Classification Problem Date Documented Date Episodic/Chronic Abdominal pain (7 sources) Pain in female pelvis; Translations: [Pelvic and perineal pain] Onset: 04-02-2023 Episodic Contraceptive and procreative management (4 sources) Intrauterine contraceptive device in situ; Translations: [Presence of (intrauterine) contraceptive device] Onset: 02-26-2023 09-28-2023 Episodic Immunizations and screening for infectious disease (7 sources) Herpes simplex type 2 infection; Translations: [Other specified abnormal immunological findings in serum] Onset: 01-29-2023 Episodic Malaise and fatigue (2 sources) Other malaise; Translations: [Other fatigue] Onset: 04-02-2023 Episodic Other female genital disorders (12 sources) History of premature labor; Translations: [Personal history of pre-term labor] Onset: 11-11-2010 11-11-2010 Episodic Residual codes; unclassified (1 source) Other specified postprocedural states; Translations: [History of loop electrical excision procedure (LEEP)] Onset: 01-29-2023 Episodic Viral infection (14 sources) Genital warts; Translations: [Anogenital (venereal) warts] Onset: 02-24-2011 02-24-2011 Episodic Results Test Name Value Interpretation Reference Range Facil ity Vital Signs Date Time Vital Sign Value Performing Clinician Faci lity 10-07-2023 08:34-0500 Body weight 92.44 kg Edilberto Bronson MD Work Phone: [facility] 10-07-2023 08:34-0500 Diastolic blood pressure 94 mm[Hg] Edilberto Bronson MD Work Phone: [facility] 10-07-2023 08:34-0500 Systolic blood pressure 138 mm[Hg] Edilberto Bronson MD Work Phone: [facility] 09-24-2023 14:49-0500 Body weight 92.08 kg Princess Combs APRN.CNM Work Phone: [facility] 09-24-2023 14:49-0500 Diastolic blood pressure 76 mm[Hg] Princess Combs APRN.CNM Work Phone: [facility] 09-24-2023 14:49-0500 Systolic blood pressure 122 mm[Hg] Princess Combs APRN.CNM Work Phone: [facility] 01-29-2023 10:14-0400 Body weight 107.05 kg Niki Garcia THREAD WEAVER.HOUSE FURNISHINGS SUPERVISOR Work Phone: [facility] 01-29-2023 10:14-0400 Diastolic blood pressure 94 mm[Hg] Niki Garcia THREAD WEAVER.HOUSE FURNISHINGS SUPERVISOR Work Phone: [facility] 01-29-2023 10:14-0400 Systolic blood pressure 172 mm[Hg] Niki Garcia THREAD WEAVER.HOUSE FURNISHINGS SUPERVISOR Work Phone: [facility] 11-30-2022 14:50-0500 Body height 167.6 cm Chelsie Ames MD Work Phone: [facility] 11-30-2022 14:50-0500 Body weight 104.78 kg Chelsie Ames MD Work Phone: [facility] 11-30-2022 14:50-0500 Diastolic blood pressure 80 mm[Hg] Chelsie Ames MD Work Phone: [facility] 11-30-2022 14:50-0500 Systolic blood pressure 128 mm[Hg] Chelsie Ames MD Work Phone: [facility] 03-31-2022 17:07-0400 Body height 167.6 cm Chelsie Ames MD Work Phone: [facility] 03-31-2022 17:07-0400 Body weight 102.97 kg Chelsie Ames MD Work Phone: [facility] Encounters Encounter Date Encounter Type Care Provider Facility Start: 11-08-2023 End: 11-08-2023 ambulatory EDILBERTO BRONSON Facility:[facility] Start: 10-07-2023 End: 10-07-2023 ambulatory EDILBERTO BRONSON Facility:[facility] Start: 10-07-2023 End: 10-07-2023 ambulatory EDILBERTO BRONSON Facility:[facility] Start: 10-07-2023 End: 10-07-2023 Patient encounter procedure Edilberto Bronson MD Work Phone: OB/Gynecology Procedures Date Procedure Procedure Detail Performing Clinician Start: 09-24-2023 Smr prim src gram/gi emsa stain bct fungi/cell Geovanna Miramontes THREAD WEAVER.HOUSE FURNISHINGS SUPERVISOR Work Phone: Start: 11-30-2022 Us transvaginal Chelsie Ames MD Work Phone: Start: 03-31-2022 Adult depression screening assessment Chelsie Ames MD Work Phone: Start: 05-23-2020 Adult depression screening assessment Chelsie Ames MD Work Phone: H/O: surgery History of loop electrical excision procedure (LEEP) Niki Garcia APRN.HOUSE FURNISHINGS SUPERVISOR Work Phone: Plan of Treatment Date Care Activity Detail Author Start: 01-30-2028 HPV TESTING HPV TESTING [facility] Start: 01-30-2028 Screening for malignant neoplasm of cervix HPV Testing [facility] Start: 03-31-2027 PAP TESTING PAP TESTING [facility] Start: 03-31-2027 Screening for malignant neoplasm of cervix Pap Testing [facility] Start: 03-08-2024 HPV TESTING HPV TESTING [facility] Start: 03-08-2024 PAP TESTING PAP TESTING [facility] Start: 06-25-2023 Influenza vaccination [facility] Start: 03-31-2023 Adult depression screening assessment DEPRESSION SCREENING [facility] Start: 10-25-2022 DEPRESSION ASSESSMENT DEPRESSION ASSESSMENT [facility] Start: 06-25-2022 Influenza vaccination [facility] Start: 05-23-2021 Adult depression screening assessment DEPRESSION SCREENING [facility] Start: 2019 Mammography [facility] Start: 2019 Screening for malignant neoplasm of breast Mammogram Screening [facility] Start: 1998 ONE PNEUMOVAX PRIOR TO AGE 65 ONE PNEUMOVAX PRIOR TO AGE 65 [facility] Start: 1998 Urine microalbumin profile [facility] Start: 1997 HEPATITIS C SCREENING HEPATITIS C SCREENING [facility] Start: 1997 Hepatitis C screening Hepatitis C Screening [facility] Start: 01-27-1984 COVID-19 VACCINE (#1) COVID-19 VACCINE (#1) [facility] Start: 1979 COVID-19 VACCINE (#1) COVID-19 VACCINE (#1) [facility] Start: 1979 HEPATITIS B (1 of 3 - 3-dose series) HEPATITIS B (1 of 3 - 3-dose series) [facility] Start: 1979 Hepatitis B Vaccine (1 of 3 - 3-dose series) Hepatitis B Vaccine (1 of 3 - 3-dose series) [facility] BACTERIAL VAGINOSIS AMPLIFICATION BACTERIAL VAGINOSIS AMPLIFICATION Lab Routine Pelvic pain in female 01/29/2023 11:45 AM EDT [facility] Work Phone: KEISHA / TRICHOMONA S AMPLIFICATION KEISHA / TRICHOMONAS AMPLIFICATION Microbiology Routine Pelvic pain in female 01/29/2023 11:45 AM EDT [facility] Work Phone: Chlamydia trachomatis+Neisseria gonorrhoeae DNA [Presence] in Unspecified specimen by MELLISSA with probe detection GC/CHLAMYDIA DNA DET Lab Routine Screen for STD (sexually transmitted disease) Pelvic pain in female 01/29/2023 11:45 AM EDT [facility] Work Phone: Endometrial bx w/wo endocervix bx w/o dilat spx ENDOMETRIAL BIOPSY Procedures Routine Menorrhagia with regular cycle Pelvic pain in female Ordered: 01/29/2023 [facility] Work Phone: Payers Date Payer Category Payer Unknown [employer] PPO [id number] 2022-Present [phone] [address] [place] [address] PPO [id number] 2022 Unknown [id number] Social History Date Type Detail Facility Start: 11-30-2022 [facility] Work Phone: End: 09-16-2010 History of tobacco use Current smoker [facility] Work Phone: End: 09-16-2010 History of tobacco use Cigarette Smoker [facility] Work Phone: Start: 09-17-2021 End: 10-07-2023 Alcohol intake Current drinker of alcohol (finding) [facility] Start: 09-23-2010 History SDOH Alcohol Comment Rare,NOT WHILE [facility] Start: 1980 Sex Assigned At Female C [facility] Start: 03-21-2022 End: 03-31-2022 Exposure to SARS-CoV-2 (event) Not sure [facility] Start: 11-30-2022 End: 02-26-2023 Cigarettes smoked current (pack per day) - Reported 0.5 [facility] Start: 11-30-2022 Tobacco use and exposure Smokeless tobacco non-user [facility] Start: 02-26-2023 End: 09-24-2023 Tobacco use panel [facility] Adult Depression Screening Assessment 1 [facility] Start: 08-27-2021 Gender identity Identifies as female gender (finding) [facility] Start: 08-27-2021 Sexual orientation Heterosexual (fin ding) [facility] Clinical Notes 11-11-2010 to 11-19-2023 Edilberto Bronson MD - 10/07/2023 8:29 AM ESTTelephone Encounter - Edilberto Bronson MD - 10/04/2023 4:56 PM ESTTelephone Encounter - Mariam Beltre LPN - 10/01/2023 7:57 AM EST Note Date & Type Note Facility 11-19-2023 Note HNO ID: [id number] Author: EDILBERTO BRONSON MD Service: ? Author Type: Physician Type: Progress Notes Filed: 11/19/2023 12:23 Note Text: Patient underwent TLH, bilateral salpingectomy for adenomyosis, chronic pelvic pain, dysmenorrhea and menorrhagia on at [facility]. She was d/herbie home same day. Pathology pending. Edilberto Bronson MD [facility] 11-08-2023 Note HNO ID: [id number] Author: EDILBERTO BRONSON MD Service: ? Author Type: Physician Type: Progress Notes Filed: 11/08/2023 11:51 Note Text: Palmira Laguerre is a 43 year old female who presents for problem visit for f/u heavy menses. Has completed child bearing. . HPI: 43-year-old female with history of longstanding heavy.'s and pelvic pain. Tried a Mirena IUD and was unsatisfactory. Does not want to be on hormones. OB History T1 L2 SAB1 IAB0 Ectopic0 Multiple0 Live Births2 Nonprofit Director History LMP: 10/02/2023, IUD Age at Menarche: Age at First : Age at Menopause: Nonprofit Director History Comments: Sexual Activity: Yes; Male Contraception: Tubal Ligation, I.U.D. 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 PAST SURGICAL HISTORY Procedure Laterality Date DELIVERY ONLY , low cervical- x2 COLPOSCOPY CERVIX UPPER/ADJACENT VAGINA 2002 Colposcopy-with cryo CONIZATION CERVIX W/WO DANDC RPR ELTRD EXC 06/05/2003 LEEP-Cervix INSERTION OF IUD 02/2023 PAST SURGICAL HISTORY OF 10/2008 removal of skin cancer on chest PAST SURGICAL HISTORY OF 05/2009 Right Foot Surgery TUBAL LIGATION FAMILY HISTORY Problem Relation Age of Onset Hypertension Mother Emphysema Mother Thyroid Mother other (covid) Father Hypertension Brother Emphysema Maternal Grandfather Social History Tobacco Use Smoking status: Former Packs/day: 0.50 Years: 18.00 Additional pack years: 0.00 Total pack years: 9.00 Types: Cigarettes Quit date: 09/16/2010 Years since quittin.1 Smokeless tobacco: Never Vaping Use Vaping Use: Never used Substance Use Topics Alcohol use: Yes Comment: Rare,NOT WHILE Drug use: No Current Outpatient Medications Medication Sig valACYclovir (VALTREX) 500 mg tablet Take 1 tablet by mouth once daily. 1 tablet twice daily prn outbreak x 3d then 1 daily for suppression levonorgestrel (MIRENA) 21 mcg/24 hours (8 yrs) 52 mg IUD 1 Each by INTRAUTERINE route as directed. No current facility-administered medications for this visit. Allergies As of Date: 11/08/2023 Allergen Noted Reaction SULFA (SULFONAMIDE ANTIBIOTICS) 04/11/2009 Unknown and Hives Fully Assessed 11/08/2023 Allergies and current medication updated:Yes EXAM: BP 136/92 Pulse 86 Resp 16 Ht 5' 6 (1.68m) Wt 197 lb (89.4kg) SpO2 99% LMP 10/02/2023 BMI 31.81 kg/(m2). GENERAL: pleasant, female in no apparent distress ASSESSMENT AND PLAN: Heavy menstrual bleeding, failed conservative measures. Not a good endometrial ablation candidate due to pelvic pain and suspected adenomyosis. Risk-benefit alternatives to hysterectomy reviewed, patient's questions were answered to her satisfaction she desires to proceed. Reviewed pelvic ultrasound, Pap and EMB results today. Reviewed previous surgical history. Edilberto Bronson MD [facility] 10-07-2023 Note HNO ID: [id number] Author: Terri Gaitan RT(R) Service: ? Author Type: Commercial [employer] Type: Progress Notes Filed: 10/07/2023 10:30 AM Note Text: Radiology Service Progress Note PATIENT NAME: Palmira Laguerre DATE OF SERVICE: October 07, 2023 TIME: 10:29 AM PATIENT IDENTITY VERIFICATION COMPLETED USING TWO (2) IDENTIFIERS: Name and Date of confirmed by patient verbally. FALL SCREENING: Has the patient had 2 falls in the last year or 1 fall with injury or currently using an Ambulatory Assistive Device (Walker, Cane, Wheelchair, Crutches, etc.)? No PATIENT GENDER DATA: Female. status: : No status: NO. PATIENT RELEVANT IMPLANT DATA REVIEWED: Not Applicable RADIOLOGY DEPARTMENT: Mammography PERIPHERAL IV DATA: Not applicable SIGNED BY: RT Nicolasa(R) October 07, 2023 10:[address] [facility] 10-07-2023 Note HNO ID: [id number] Author: Edilberto Bronson MD Service: ? Author Type: Physician Type: Progress Notes Filed: 10/08/2023 4:18 PM Note Text: Palmira Laguerre is a 43 year old female who presents for problem visit for horrendous periods for 12 years and constant pelvic pain fo past year. Feels like she has period cxramps or burning pain even when not on menses. Orgasms and sex was painful as well. 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 Hasn't helped the pain, feels like the cramping is more than before it was inserted. Still has pain w/ intercourse to the point she avoids it. AFter sex she has soreness and deep achy pain. No pain at introitus. No vaginal itching, abnormal vaginal discharge, itching or burning. Stools are normal, no pain w/ BM. No change in urination. Had a lot of pain w/ pelvic US and has more pain when bladder full. Takes acetaminophen or ibuprofen prn and uses head as well. denies H/o prolonged bleeding or easy bleeding. tried doxycycline and didn't help pain or bleeding. 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 PAST SURGICAL HISTORY Procedure Laterality Date DELIVERY ONLY , low cervical- x2 COLPOSCOPY CERVIX UPPER/ADJACENT VAGINA 2002 Colposcopy-with cryo CONIZATION CERVIX W/WO DANDC RPR ELTRD EXC 06/05/2003 LEEP-Cervix INSERTION OF IUD 02/2023 PAST SURGICAL HISTORY OF 10/2008 removal of skin cancer on chest PAST SURGICAL HISTORY OF 05/2009 Right Foot Surgery TUBAL LIGATION FAMILY HISTORY Problem Relation Age of Onset Hypertension Mother Emphysema Mother Thyroid Mother other (covid) Father Hypertension Brother Emphysema Maternal Grandfather Social History Tobacco Use Smoking status: Former Packs/day: 0.50 Years: 18.00 Additional pack years: 0.00 Total pack years: 9.00 Types: Cigarettes Quit date: 09/16/2010 Years since quittin.0 Smokeless tobacco: Never Vaping Use Vaping Use: Never used Substance Use Topics Alcohol use: Yes Comment: Rare,NOT WHILE Drug use: No Current Outpatient Medications Medication Sig levonorgestrel (MIRENA) 21 mcg/24 hours (8 yrs) 52 mg IUD 1 Each by INTRAUTERINE route as directed. miSOPROStol (CYTOTEC) 200 mcg tablet Insert 2 tablets vaginally night prior to endometrial biopsy and 2 tablets morning of procedure. Each dose should be in vagina for 6-8 hours. (Patient not taking: Reported on 04/02/2023) valACYclovir (VALTREX) 500 mg tablet Take 1 tablet by mouth once daily. 1 tablet twice daily prn outbreak x 3d then 1 daily for suppression (Patient not taking: Reported on 10/07/2023) diphenhydrAMINE-Acetaminophen (TYLENOL PM EXTRA STRENGTH) 25-500 mg tab Take by mouth. (Patient not taking: Reported on 10/07/2023) No current facility-administered medications for this visit. Allergies As of Date: 10/07/2023 Allergen Noted Reaction SULFA (SULFONAMIDE ANTIBIOTICS) 04/11/2009 Unknown and Hives Fully Assessed 10/07/2023 Allergies and current medication updated:Yes EXAM: BP 138/94 Wt 203 lb 12.8 oz (92.4kg) LMP 10/02/2023 GENERAL: pleasant, female in no apparent distress HEENT: Normocephalic, atraumatic, mucus membranes moist, and no lesions ABDOMEN: soft, non-tender, no hernia, no masses, rebound Absent, and guarding Absent PELVIC: external genitalia normal, normal Bartholin's glands, urethra, [place]'s glands, no vulvar lesions, no cervical lesions, good vaginal support, physiologic discharge present, normal appearing perineal body and perianal region BIMANUAL: no adnexal masses, non-tender, and uterus tender, mobile, good support, mild right adenexal pain. No pain or spasm over levators ASSESSMENT AND PLAN: Encounter Diagnosis ICD-10-CM 1. 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 Likely adenomyosis clinically and based on US. D/w her r/b/a to various options including pelvic pain clinic referral, continuing medical therapy. Not a good endometrial ablation candidate due to adenomyosis and pain, may make that worse. She desires definitive therapy in form of hysterectomy, failed conservative measures including IUD. Short and technician terminal and repeater risks of hyst reviewed. Postop limitations and expectations reviewed. D/w her may get exacerbation of pain since has chronic pain. She would like to proceed w/ hyst. IUD is helping decrease flow but still bleeding frequently, so will leave it i (more content not included)... [facility] 10-07-2023 History of Present illness Narrative Palmiar Laguerre is a 43 year old female who presents for problem visit for horrendous periods for 12 years and constant pelvic pain fo past year. Feels like she has period cxramps or burning pain even when not on menses. Orgasms and sex was painful as well. 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 Hasn't helped the pain, feels like the cramping is more than before it was inserted. Still has pain w/ intercourse to the point she avoids it. AFter sex she has soreness and deep achy pain. No pain at introitus. No vaginal itching, abnormal vaginal discharge, itching or burning. Stools are normal, no pain w/ BM. No change in urination. Had a lot of pain w/ pelvic US and has more pain when bladder full. Takes acetaminophen or ibuprofen prn and uses head as well. denies H/o prolonged bleeding or easy bleeding. tried doxycycline and didn't help pain or bleeding. 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 PAST SURGICAL HISTORY Procedure Laterality Date DELIVERY ONLY , low cervical- x2 COLPOSCOPY CERVIX UPPER/ADJACENT VAGINA 2002 Colposcopy-with cryo CONIZATION CERVIX W/WO D&C RPR ELTRD EXC 06/05/2003 LEEP-Cervix INSERTION OF IUD 02/2023 PAST SURGICAL HISTORY OF 10/2008 removal of skin cancer on chest PAST SURGICAL HISTORY OF 05/2009 Right Foot Surgery TUBAL LIGATION FAMILY HISTORY Problem Relation Age of Onset Hypertension Mother Emphysema Mother Thyroid Mother other (covid) Father Hypertension Brother Emphysema Maternal Grandfather Social History Tobacco Use Smoking status: Former Packs/day: 0.50 Years: 18.00 Additional pack years: 0.00 Total pack years: 9.00 Types: Cigarettes Quit date: 09/16/2010 Years since quittin.0 Smokeless tobacco: Never Vaping Use Vaping Use: Never used Substance Use Topics Alcohol use: Yes Comment: Rare,NOT WHILE Drug use: No Current Outpatient Medications Medication Sig levonorgestrel (MIRENA) 21 mcg/24 hours (8 yrs) 52 mg IUD 1 Each by INTRAUTERINE route as directed. miSOPROStol (CYTOTEC) 200 mcg tablet Insert 2 tablets vaginally night prior to endometrial biopsy and 2 tablets morning of procedure. Each dose should be in vagina for 6-8 hours. (Patient not taking: Reported on 04/02/2023) valACYclovir (VALTREX) 500 mg tablet Take 1 tablet by mouth once daily. 1 tablet twice daily prn outbreak x 3d then 1 daily for suppression (Patient not taking: Reported on 10/07/2023) diphenhydrAMINE-Acetaminophen (TYLENOL PM EXTRA STRENGTH) 25-500 mg tab Take by mouth. (Patient not taking: Reported on 10/07/2023) No current facility-administered medications for this visit. Allergies As of Date: 10/07/2023 Allergen Noted Reaction SULFA (SULFONAMIDE ANTIBIOTICS) 04/11/2009 Unknown and Hives Fully Assessed 10/07/2023 Allergies and current medication updated:Yes EXAM: BP 138/94 Wt 203 lb 12.8 oz (92.4kg) LMP 10/02/2023 GENERAL: pleasant, female in no apparent distress HEENT: Normocephalic, atraumatic, mucus membranes moist, and no lesions ABDOMEN: soft, non-tender, no hernia, no masses, rebound Absent, and guarding Absent PELVIC: external genitalia normal, normal Bartholin's glands, urethra, Bernalillo's glands, no vulvar lesions, no cervical lesions, good vaginal support, physiologic discharge present, normal appearing perineal body and perianal region BIMANUAL: no adnexal masses, non-tender, and uterus tender, mobile, good support, mild right adenexal pain. No pain or spasm over levators ASSESSMENT AND PLAN: Encounter Diagnosis ICD-10-CM 1. 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 Likely adenomyosis clinically and based on US. D/w her r/b/a to various options including pelvic pain clinic referral, continuing medical therapy. Not a good endometrial ablation candidate due to adenomyosis and pain, may make that worse. She desires definitive therapy in form of hysterectomy, failed conservative measures including IUD. Short and technician terminal and repeater risks of hyst reviewed. Postop limitations and expectations reviewed. D/w her may get exacerbation of pain since has chronic pain. She would like to proceed w/ hyst. IUD is helping decrease flow but still bleeding frequently, so will leave it in until surgery. Has completed child bearing. D/w her permanently will be unable to bear children. Edilberto Bronson MD Medical Decision Making: Problems: Low: Stable chronic illness Moderate: 1+ chronic illnesses with change Data: Unique test result(s) reviewed: 3+ Risk: Moderate: Decision on elective major surgery w/o risk factors Medical Decision Making Level: 4 - Moderate documented in this encounter [facility] 10-04-2023 Miscellaneous Notes Schedule w/ one the physicians -SW/RR/DM to discuss pain and adneomyosis, possible hysterectomy. Edilberto Bronson MD documented in this encounter [facility] 10-01-2023 Miscellaneous Notes See [email or web address] message Patient is ok with a virtual visit, Please advise where patient can be added. No openings until 10/20 and patient did not want to wait that long to discuss results. ----- Message from Princess Combs APRN.ULCIA sent at 09/30/2023 9:21 AM EST ----- Please schedule patient with me for a virtual visit in next two weeks for results. Thanks, Princess Combs APRN.CNM documented in this encounter [facility] 09-28-2023 Note HNO ID: [id number] Author: Niharika Brito RDMS Service: ? Author Type: Commercial Glazier Type: Progress Notes Filed: 09/28/2023 11:25 AM Note Text: Radiology Service Progress Note PATIENT NAME: Palmira Laguerre DATE OF SERVICE: September 28, 2023 TIME: 11:25 AM PATIENT IDENTITY VERIFICATION COMPLETED USING TWO (2) IDENTIFIERS: Name and Date of confirmed by patient verbally. FALL SCREENING: Has the patient had 2 falls in the last year or 1 fall with injury or currently using an Ambulatory Assistive Device (Walker, Cane, Wheelchair, Crutches, etc.)? No PATIENT GENDER DATA: Female. status: : No status: NO. PATIENT RELEVANT IMPLANT DATA REVIEWED: Not Applicable RADIOLOGY DEPARTMENT: Ultrasound PERIPHERAL IV DATA: Not applicable SIGNED BY: Niharika Brito RDMS September 28, 2023 11:[address] [facility] 09-28-2023 History of Present illness Narrative Radiology Service Progress Note PATIENT NAME: Palmira Laguerre DATE OF SERVICE: September 28, 2023 TIME: 11:25 AM PATIENT IDENTITY VERIFICATION COMPLETED USING TWO (2) IDENTIFIERS: Name and Date of confirmed by patient verbally. FALL SCREENING: Has the patient had 2 falls in the last year or 1 fall with injury or currently using an Ambulatory Assistive Device (Walker, Cane, Wheelchair, Crutches, etc.)? No PATIENT GENDER DATA: Female. status: : No status: NO. PATIENT RELEVANT IMPLANT DATA REVIEWED: Not Applicable RADIOLOGY DEPARTMENT: Ultrasound PERIPHERAL IV DATA: Not applicable SIGNED BY: Niharika Brito RDMS September 28, 2023 11:25 AM documented in this encounter [facility] 09-24-2023 Note HNO ID: [id number] Author: Princess Combs APRN.CNM Service: ? Author Type: Relationship Manager Type: Progress Notes Filed: 09/28/2023 3:54 PM Note Text: Palmira Laguerre is a 43 year old female who presents for problem visit for pelvic pain. HPI: Pelvic pain, warm, achy, pinching, full. Bleeding has been constant since June. Not always heavy but always there. Bleeding comes always after intercourse. Pain with intercourse. Mirena IUD in place, placed 02/20/23. 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 Pelvic pain was still present prior to IUD with menses and at other times but worse after IUD. Tubal ligation. OB History T1 L2 SAB1 IAB0 Ectopic0 Multiple0 Live Births2 Nonprofit Director History LMP: 02/20/2023 (Exact Date), IUD Age at Menarche: Age at First : Age at Menopause: Nonprofit Director History Comments: Sexual Activity: Yes; Male Contraception: Tubal Ligation 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 PAST SURGICAL HISTORY Procedure Laterality Date DELIVERY ONLY , low cervical- x2 COLPOSCOPY CERVIX UPPER/ADJACENT VAGINA 2002 Colposcopy-with cryo CONIZATION CERVIX W/WO DANDC RPR ELTRD EXC 06/05/2003 LEEP-Cervix INSERTION OF IUD 02/2023 PAST SURGICAL HISTORY OF 10/2008 removal of skin cancer on chest PAST SURGICAL HISTORY OF 05/2009 Right Foot Surgery TUBAL LIGATION FAMILY HISTORY Problem Relation Age of Onset Hypertension Mother Emphysema Mother Thyroid Mother other (covid) Father Hypertension Brother Emphysema Maternal Grandfather Social History Tobacco Use Smoking status: Former Packs/day: 0.50 Years: 18.00 Additional pack years: 0.00 Total pack years: 9.00 Types: Cigarettes Quit date: 09/16/2010 Years since quittin.0 Smokeless tobacco: Never Vaping Use Vaping Use: Never used Substance Use Topics Alcohol use: Yes Comment: Rare,NOT WHILE Drug use: No Current Outpatient Medications Medication Sig levonorgestrel (MIRENA) 21 mcg/24 hours (8 yrs) 52 mg IUD 1 Each by INTRAUTERINE route as directed. miSOPROStol (CYTOTEC) 200 mcg tablet Insert 2 tablets vaginally night prior to endometrial biopsy and 2 tablets morning of procedure. Each dose should be in vagina for 6-8 hours. (Patient not taking: Reported on 04/02/2023) valACYclovir (VALTREX) 500 mg tablet Take 1 tablet by mouth once daily. 1 tablet twice daily prn outbreak x 3d then 1 daily for suppression diphenhydrAMINE-Acetaminophen (TYLENOL PM EXTRA STRENGTH) 25-500 mg tab Take by mouth. No current facility-administered medications for this visit. Allergies As of Date: 09/24/2023 Allergen Noted Reaction ENVIRONMENTAL ALLERGIES [OTHER] 06/22/2006 GRASS POLLEN 06/22/2006 Unknown SULFA (SULFONAMIDE ANTIBIOTICS) 04/11/2009 Unknown and Hives Fully Assessed 04/02/2023 REVIEW OF SYSTEMS Abdomen: No bloating, early satiety, indigestion, or increased flatulence. No abdominal pain, nausea, vomiting, diarrhea, or constipation. Bladder: No dysuria, gross hematuria, urinary frequency, urinary urgency, or incontinence. Breast: No breast lumps, nipple d/c, overlying skin changes, redness or skin retraction. Expanded ROS: N/A Allergies and current medication updated:Yes EXAM: BP 122/76 Wt 203 lb (92.1kg) LMP 02/20/2023 GENERAL: pleasant, female in no apparent distress HEENT: Normocephalic and atraumatic NECK: Supple and full range of motion DERMATOLOGY: Normal and without lesions CHEST: Normal inspiratory effort ABDOMEN: soft, non-tender, and no masses PELVIC: external genitalia normal, normal Bartholin's glands, urethra, Bernalillo's glands, no vulvar lesions, no cervical lesions, good vaginal support, physiologic discharge present, normal appearing perineal body and perianal region BIMANUAL: uterus normal size, shape and consistency, no adnexal masses, and non-tender NEURO: alert and oriented x3,exam grossly non-focal EXTREMITIES: normal Pelvic US 11/30/2022 Heterogenous Uterus, possible Fibroid Uterus, hyperechoic areas in cx 0.9 x 0.8 x 0.8cm(0.9cm 05/12), 0.5 x 0.6 x 0.6cm , Ovarian Follicles seen Bilaterally, Nabothian Cyst 0.8 x0.7 x 0.4cm (0.7cm 05/12), hypoechoic area in cx 0.7 x 0.7 x 0.7cm , free fluid in cx , thickened endo ASSESSMENT AND PLAN: 1. 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 IUD (intrauterine device) in place - ICD9: V45.51, ICD10: Z97.5 3. Dyspareunia, female - ICD9: 625.0, ICD10: N94.10 4. Postcoital and contact bleeding - ICD9: 626.7, ICD10: N93.0 -Previous round of doxycycline. Discussed can try Rocephin injection and see if this helps. Princess Combs APRN.ALONSOM [facility] 09-24-2023 Nurse Note The patient is here for an injection of Rocephin, reconstituted with 0.9 ml of Xylocaine 1% without Epinephrine (Lot #: [id number], Exp. date: 12/21). Dose: 500 MG Amount wasted: none. Route: Intramuscular Site: left upper quadrant gluteus Buzzsaw Operator: [employer] Lot #: [id number] Expiration Date: 02/2025 The date due for the next injection is n/a Patient was observed in the office for 15 minutes. No signs of allergic reaction. Elo Montana RN documented in this encounter [facility] 09-24-2023 History of Present illness Narrative Palmira Laguerre is a 43 year old female who presents for problem visit for pelvic pain. HPI: Pelvic pain, warm, achy, pinching, full. Bleeding has been constant since June. Not always heavy but always there. Bleeding comes always after intercourse. Pain with intercourse. Mirena IUD in place, placed 02/20/23. 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 Pelvic pain was still present prior to IUD with menses and at other times but worse after IUD. Tubal ligation. OB History T1 L2 SAB1 IAB0 Ectopic0 Multiple0 Live Births2 Nonprofit Director History LMP: 02/20/2023 (Exact Date), IUD Age at Menarche: Age at First : Age at Menopause: Nonprofit Director History Comments: Sexual Activity: Yes; Male Contraception: Tubal Ligation 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 PAST SURGICAL HISTORY Procedure Laterality Date DELIVERY ONLY , low cervical- x2 COLPOSCOPY CERVIX UPPER/ADJACENT VAGINA 2002 Colposcopy-with cryo CONIZATION CERVIX W/WO D&C RPR ELTRD EXC 06/05/2003 LEEP-Cervix INSERTION OF IUD 02/2023 PAST SURGICAL HISTORY OF 10/2008 removal of skin cancer on chest PAST SURGICAL HISTORY OF 05/2009 Right Foot Surgery TUBAL LIGATION FAMILY HISTORY Problem Relation Age of Onset Hypertension Mother Emphysema Mother Thyroid Mother other (covid) Father Hypertension Brother Emphysema Maternal Grandfather Social History Tobacco Use Smoking status: Former Packs/day: 0.50 Years: 18.00 Additional pack years: 0.00 Total pack years: 9.00 Types: Cigarettes Quit date: 09/16/2010 Years since quittin.0 Smokeless tobacco: Never Vaping Use Vaping Use: Never used Substance Use Topics Alcohol use: Yes Comment: Rare,NOT WHILE Drug use: No Current Outpatient Medications Medication Sig levonorgestrel (MIRENA) 21 mcg/24 hours (8 yrs) 52 mg IUD 1 Each by INTRAUTERINE route as directed. miSOPROStol (CYTOTEC) 200 mcg tablet Insert 2 tablets vaginally night prior to endometrial biopsy and 2 tablets morning of procedure. Each dose should be in vagina for 6-8 hours. (Patient not taking: Reported on 04/02/2023) valACYclovir (VALTREX) 500 mg tablet Take 1 tablet by mouth once daily. 1 tablet twice daily prn outbreak x 3d then 1 daily for suppression diphenhydrAMINE-Acetaminophen (TYLENOL PM EXTRA STRENGTH) 25-500 mg tab Take by mouth. No current facility-administered medications for this visit. Allergies As of Date: 09/24/2023 Allergen Noted Reaction ENVIRONMENTAL ALLERGIES [OTHER] 06/22/2006 GRASS POLLEN 06/22/2006 Unknown SULFA (SULFONAMIDE ANTIBIOTICS) 04/11/2009 Unknown and Hives Fully Assessed 04/02/2023 REVIEW OF SYSTEMS Abdomen: No bloating, early satiety, indigestion, or increased flatulence. No abdominal pain, nausea, vomiting, diarrhea, or constipation. Bladder: No dysuria, gross hematuria, urinary frequency, urinary urgency, or incontinence. Breast: No breast lumps, nipple d/c, overlying skin changes, redness or skin retraction. Expanded ROS: N/A Allergies and current medication updated:Yes EXAM: BP 122/76 Wt 203 lb (92.1kg) LMP 02/20/2023 GENERAL: pleasant, female in no apparent distress HEENT: Normocephalic and atraumatic NECK: Supple and full range of motion DERMATOLOGY: Normal and without lesions CHEST: Normal inspiratory effort ABDOMEN: soft, non-tender, and no masses PELVIC: external genitalia normal, normal Bartholin's glands, urethra, Bernalillo's glands, no vulvar lesions, no cervical lesions, good vaginal support, physiologic discharge present, normal appearing perineal body and perianal region BIMANUAL: uterus normal size, shape and consistency, no adnexal masses, and non-tender NEURO: alert and oriented x3,exam grossly non-focal EXTREMITIES: normal Pelvic US 11/30/2022 Heterogenous Uterus, possible Fibroid Uterus, hyperechoic areas in cx 0.9 x 0.8 x 0.8cm(0.9cm 05/12), 0.5 x 0.6 x 0.6cm , Ovarian Follicles seen Bilaterally, Nabothian Cyst 0.8 x0.7 x 0.4cm (0.7cm 05/12), hypoechoic area in cx 0.7 x 0.7 x 0.7cm , free fluid in cx , thickened endo ASSESSMENT AND PLAN: 1. 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 IUD (intrauterine device) in place - ICD9: V45.51, ICD10: Z97.5 3. Dyspareunia, female - ICD9: 625.0, ICD10: N94.10 4. Postcoital and contact bleeding - ICD9: 626.7, ICD10: N93.0 -Previous round of doxycycline. Discussed can try Rocephin injection and see if this helps. Princess Combs APRN.CNM documented in this encounter [facility] 04-23-2023 Miscellaneous Notes Please see pt's mychart message. Pt no longer lives in [place]. Please see corrected pharmacy. Marilynn De Leon LPN Please review pt's [employer] message and further advise. Marilynn De Leon LPN documented in this encounter [facility] 04-02-2023 Note HNO ID: [id number] Author: Niki Garcia APRN.HOUSE FURNISHINGS SUPERVISOR Service: ? Author Type: Nurse Practitioner Type: Progress Notes Filed: 04/02/2023 3:13 PM Note Text: Hospital Sales Representative offered: Patient declines. Palmira Laguerre presents today for IUD check. She had a Mirena placed on 02/26/2023. She has had bleeding and cramping since placement. Was having usual HMB from insertion until taping off over the past 3 days. No bleeding today. Does have burny achy feeling in lower abdomen . Has been feeling very tired and fatigued lately. 02/26/2023 EMB pathology - benign endometrium with stromal breakdown and fragments of benign endocervix REVIEW OF SYSTEMS: No fever or chills. Color pink. PHYSICAL EXAMINATION: BP 126/84 Wt 227 lb (103.0kg) LMP 02/20/2023 ABDOMEN:soft, non-tender, no masses, no hepatosplenomegaly, and no lymphadenopathy EXTERNAL GENITALIA: Normal genitalia and Bartholins, Urethra, Sken'e normal CERVIX: smooth, no lesions. IUD strings visible 3 cm. Small amount blood in vaginal vault. Tip not palpated. UTERUS: normal size ADNEXA: negative for tenderness or masses ASSESSMENT/PLAN: 1. Encounter for routine checking of intrauterine contraceptive device (IUD) - ICD9: V25.42, ICD10: Z30.431 (primary diagnosis) - IUD in proper position per exam 2. Breakthrough bleeding with IUD - ICD9: 626.6, V45.51, ICD10: N92.1, Z97.5 - if bleeding and cramping/pelvic pain continue, will plan to order pelvic US - TSH BLD - T4 FREE/FREE THYROX - CBC + DIFF - IRON + TIBC - FERRITIN BLD 3. Pelvic pain in female - ICD9: 625.9, ICD10: R10.2 - BACT/KEISHA VAG GRAM STAIN 4. Malaise and fatigue - ICD9: 780.79, ICD10: R53.81, R53.83 - TSH BLD - T4 FREE/FREE THYROX - CBC + DIFF - IRON + TIBC - FERRITIN BLD Will notify of results. Pelvic US if bleeding and pelvic pain continue. Follow- up as needed. Niki Garcia APRN.CNP Medical Decision Making: Problems: Moderate: 1+ chronic illnesses with change Data: Unique test result(s) reviewed: 1 Unique test(s) ordered: 3+ Medical Decision Making Level: 4 - Moderate [facility] 02-26-2023 Note HNO ID: [id number] Author: Niki Garcia APRN.CARLOS Service: ? Author Type: Nurse Practitioner Type: Progress Notes Filed: 02/26/2023 4:49 PM Note Text: Palmira is a 43 year old Female who presents today for an endometrial biopsy for heavy menses. test: negative UNIVERSAL PROTOCOL / SAFETY CHECKLIST Procedure to be Performed: EMB and Mirena IUD insertion Sign In: A Moment of CARE was completed. Personnel directly involved with the procedure wore the appropriate PPE (Personal Protective Equipment). Patient/Surrogate Stated/Verified: PATIENT VERIFIED(optional for EMERGENT procedures): Patient name, Date of , Relevant allergies, and The intended procedure Time Out Communication: Intended patient and procedure match the source documents. Consent documented and matches the intended procedure. Relevant labs, photos, and/or imaging studies have been reviewed. Implant(s) inserted: Correct implant(s) confirmed including size and side. and Expiration date(s) reviewed. Sign Out: SIGN OUT (optional for EMERGENT procedures): All specimen containers correctly labeled. All instruments, equipment, possible retained foreign bodies accounted for. Post-procedure follow-up management communicated and Plan of Care Visit completed when applicable. PROCEDURE: EXTERNAL GENITALIA: Normal in appearance without lesions VAGINA: Normal in appearance without lesions BIOPSY: Speculum placed into the vagina with excellent visualization of the cervix. Cervix cleaned with betadine. Anterior lip of cervix grasped with single toothed tenaculum. Uterus sounded to 9.5 cm. Pipelle inserted into the uterus without difficulty and endometrial biopsy obtained. Specimen labeled and sent to pathology. Hemostasis achieved. Procedure Summary: Patient tolerated procedure well. ASSESSMENT: heavy menses PLAN: Specimens labeled and sent to Pathology. Will notify patient of results in 1-2 weeks. Post-procedure instructions reviewed and written material given to the patient. Niki Garcia APRN.CARLOS Palmira presents today for IUD insertion for Menorrhagia. Patient's last menstrual period was 01/17/2023 (exact date). GC/chlamydia: Negative on 01/29/2023 test: negative Side effects including irregular bleeding were discussed with the patient. The patient understands that it should be removed in 8 years or sooner if the patient desires a . IUD source: office provided IUD lot #: [id number] Exp date: 03/23/2025 UNIVERSAL PROTOCOL / SAFETY CHECKLIST Procedure to be Performed: Mirena IUD Insertion The cervix was prepped with betadine. The uterus sounded to 9.5 cm and the uterus is Anteverted.. Using sterile technique, the Mirena IUD was inserted without difficulty and the string was cut to 3 cm from the external os of the cervix. Patient tolerated procedure well. PLAN: Patient was advised to observe for signs and symptoms of infection including but not limited to fever, malodorous vaginal discharge and/or pain. The patient was told to check the string monthly for accurate placement. Bleeding expectations were reviewed. Follow up in one month. Niki Garcia APRN.CNP [facility] 02-22-2023 Miscellaneous Notes EMB and IUD insertion scheduled. Mery Baker RN Pt phoned in to get scheduled for an IUD insertion and cervical biopsy. She started her period on 02/21/2023. Marti Mark February 22, 2023 12:23 PM documented in this encounter [facility] 02-01-2023 Miscellaneous Notes Resent RX. Isis Toledo APRN.CARLOS Patient notified and voiced understanding. Rx sent to incorrect pharmacy. Please resend with updated pharmacy. Olivia Dempsey RN +yeast, Diflucan ordered. Isis Toledo APRN.CNP documented in this encounter [facility] 01-29-2023 Note HNO ID: [id number] Author: Niki Garcia APRN.CNP Service: ? Author Type: Nurse Practitioner Type: Progress Notes Filed: 01/29/2023 5:49 PM Note Text: Hospital Sales Representative offered: Patient declines. Palmira Laguerre is a 43 year old female who presents for problem visit HMB Accompanied by , Shawn. HPI: HMB since menarche, and worse after second child at age 31. HMB and cramping that radiates to hips and upper legs for many years. Several different OCP's did not help symptoms. 2021 - Lysteda helped but stopped due to cost. End of 2021 - pain in lower abdomen with orgasm. Had pelvic US. 11/2022 - having pain with orgasm and constant mid lower pelvic pain that is worse with intercourse. Sometimes has pelvic pressure and then has sharp pain with voiding and/or initiating defecation. Myfembree started - took for 2 weeks and stopped due to headaches but was also not effective for pain. Referred to surgeon for possible hysterectomy. She would like to only have hysterectomy if pain will stop. Does not feel like she has an understanding of cause of her symptoms. 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 LMP: 11/11/2022 (Exact Date), Having periods Age at Menarche: Age at First : Age at Menopause: Nonprofit Director History Comments: Sexual Activity: Yes; Male Contraception: Tubal Ligation 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 PAST SURGICAL HISTORY Procedure Laterality Date DELIVERY ONLY , low cervical- x1 COLPOSCOPY CERVIX UPPER/ADJACENT VAGINA 2002 Colposcopy-with cryo CONIZATION CERVIX W/WO DANDC RPR ELTRD EXC 06/05/2003 LEEP-Cervix PAST SURGICAL HISTORY OF Oct 2008 removal of skin cancer on chest PAST SURGICAL HISTORY OF May 2009 Right Foot Surgery TUBAL LIGATION FAMILY HISTORY Problem Relation Age of Onset Hypertension Mother Emphysema Mother Thyroid Mother other (covid) Father Hypertension Brother Emphysema Maternal Grandfather Social History Tobacco Use Smoking status: Former Packs/day: 0.50 Years: 18.00 Pack years: 9.00 Types: Cigarettes Quit date: 09/16/2010 Years since quittin.3 Smokeless tobacco: Never Substance Use Topics Alcohol use: Yes Comment: Rare,NOT WHILE Drug use: No Current Outpatient Medications Medication Sig pcjuvhxgg-nmejcnnpk-sgkaemdqmh (MYFEMBREE) 40-1-0.5 mg tablet Take 1 tablet by mouth once daily. valACYclovir (VALTREX) 500 mg tablet Take 1 tablet by mouth once daily. 1 tablet twice daily prn outbreak x 3d then 1 daily for suppression diphenhydrAMINE-Acetaminophen (TYLENOL PM EXTRA STRENGTH) 25-500 mg tab Take by mouth. No current facility-administered medications for this visit. Allergies As of Date: 01/29/2023 Allergen Noted Reaction ENVIRONMENTAL ALLERGIES [OTHER] 06/22/2006 GRASS POLLEN 06/22/2006 Unknown SULFA (SULFONAMIDE ANTIBIOTICS) 04/11/2009 Unknown and Hives Fully Assessed 11/30/2022 REVIEW OF SYSTEMS Abdomen: see HPI Bladder: see HPI. Allergies and current medication updated:Yes EXAM: BP 172/94 Wt 236 lb (107.0kg) LMP 01/17/2023 GENERAL: pleasant, female in no apparent distress CHEST: Normal inspiratory effort ABDOMEN: soft, non-tender, and no masses PELVIC: external genitalia normal, normal Bartholin's glands, urethra, [place]'s glands, no vulvar lesions, no cervical lesions, physiologic discharge present, normal appearing perineal body and perianal region, pain with contact of pap broom to cervix. BIMANUAL: uterus normal size, shape and consistency, no adnexal masses, no cervical motion tenderness, and Mild tenderness mid low pelvis NEURO: alert and oriented x3,exam grossly non-focal ASSESSMENT/PLAN: 1. Menorrhagia with regular cycle - ICD9: 626.2, ICD10: N92.0 (primary diagnosis) -Longstanding, worse after last age 31. -Recent pelvic ultrasound shows possible adenomyosis and small fibroid. - INSERT INTRAUTERINE DEVICE - ENDOMETRIAL BIOPSY - MISOPROSTOL 200 MCG TABLET -vaginal use explained 2. Pelvic pain in female - ICD9: 625.9, ICD10: R10.2 -Mid low pelvis. Exquisite pain to cervix with collection of HPV. No bleeding to cervix and no cervical motion tenderness. - INSERT INTRAUTERINE DEVICE - ENDOMETRIAL BIOPSY - KEISHA / TRICHOMONAS AMPLIFICATION - BACTERIAL VAGINOSIS AMPLIFICATION - GC/CHLAMYDIA DNA DET 3. Special screening examination for human papillomavirus (HPV) - ICD9: V73.81, ICD10: Z11.51 -History of a LEEP with last HPV testing 2010. Last (more content not included)... [facility] 01-29-2023 Instructions Niki Garcia APRN.CNP - 01/29/2023 11:01 AM EDT Schedule when on menses or not Ibuprofen 600-800 prior to appointment Vaginal cytotec Eat before appointment. 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 Palmira Laguerre is a 43 year old female who presents for problem visit HMB Accompanied by , Shawn. HPI: HMB since menarche, and worse after second child at age 31. HMB and cramping that radiates to hips and upper legs for many years. Several different OCP's did not help symptoms. 2021 - Lysteda helped but stopped due to cost. End of 2021 - pain in lower abdomen with orgasm. Had pelvic US. 11/2022 - having pain with orgasm and constant mid lower pelvic pain that is worse with intercourse. Sometimes has pelvic pressure and then has sharp pain with voiding and/or initiating defecation. Myfembree started - took for 2 weeks and stopped due to headaches but was also not effective for pain. Referred to surgeon for possible hysterectomy. She would like to only have hysterectomy if pain will stop. Does not feel like she has an understanding of cause of her symptoms. 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 LMP: 11/11/2022 (Exact Date), Having periods Age at Menarche: Age at First : Age at Menopause: Nonprofit Director History Comments: Sexual Activity: Yes; Male Contraception: Tubal Ligation 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 PAST SURGICAL HISTORY Procedure Laterality Date DELIVERY ONLY , low cervical- x1 COLPOSCOPY CERVIX UPPER/ADJACENT VAGINA 2002 Colposcopy-with cryo CONIZATION CERVIX W/WO D&C RPR ELTRD EXC 06/05/2003 LEEP-Cervix PAST SURGICAL HISTORY OF Oct 2008 removal of skin cancer on chest PAST SURGICAL HISTORY OF May 2009 Right Foot Surgery TUBAL LIGATION FAMILY HISTORY Problem Relation Age of Onset Hypertension Mother Emphysema Mother Thyroid Mother other (covid) Father Hypertension Brother Emphysema Maternal Grandfather Social History Tobacco Use Smoking status: Former Packs/day: 0.50 Years: 18.00 Pack years: 9.00 Types: Cigarettes Quit date: 09/16/2010 Years since quittin.3 Smokeless tobacco: Never Substance Use Topics Alcohol use: Yes Comment: Rare,NOT WHILE Drug use: No Current Outpatient Medications Medication Sig nlcffjvwe-rlzxtxvia-ddhvadcogw (MYFEMBREE) 40-1-0.5 mg tablet Take 1 tablet by mouth once daily. valACYclovir (VALTREX) 500 mg tablet Take 1 tablet by mouth once daily. 1 tablet twice daily prn outbreak x 3d then 1 daily for suppression diphenhydrAMINE-Acetaminophen (TYLENOL PM EXTRA STRENGTH) 25-500 mg tab Take by mouth. No current facility-administered medications for this visit. Allergies As of Date: 01/29/2023 Allergen Noted Reaction ENVIRONMENTAL ALLERGIES [OTHER] 06/22/2006 GRASS POLLEN 06/22/2006 Unknown SULFA (SULFONAMIDE ANTIBIOTICS) 04/11/2009 Unknown and Hives Fully Assessed 11/30/2022 REVIEW OF SYSTEMS Abdomen: see HPI Bladder: see HPI. Allergies and current medication updated:Yes EXAM: BP 172/94 Wt 236 lb (107.0kg) LMP 01/17/2023 GENERAL: pleasant, female in no apparent distress CHEST: Normal inspiratory effort ABDOMEN: soft, non-tender, and no masses PELVIC: external genitalia normal, normal Bartholin's glands, urethra, Bernal[place]'s glands, no vulvar lesions, no cervical lesions, physiologic discharge present, normal appearing perineal body and perianal region, pain with contact of pap broom to cervix. BIMANUAL: uterus normal size, shape and consistency, no adnexal masses, no cervical motion tenderness, and Mild tenderness mid low pelvis NEURO: alert and oriented x3,exam grossly non-focal ASSESSMENT/PLAN: 1. Menorrhagia with regular cycle - ICD9: 626.2, ICD10: N92.0 (primary diagnosis) -Longstanding, worse after last age 31. -Recent pelvic ultrasound shows possible adenomyosis and small fibroid. - INSERT INTRAUTERINE DEVICE - ENDOMETRIAL BIOPSY - MISOPROSTOL 200 MCG TABLET -vaginal use explained 2. Pelvic pain in female - ICD9: 625.9, ICD10: R10.2 -Mid low pelvis. Exquisite pain to cervix with collection of HPV. No bleeding to cervix and no cervical motion tenderness. - INSERT INTRAUTERINE DEVICE - ENDOMETRIAL BIOPSY - KEISHA / TRICHOMONAS AMPLIFICATION - BACTERIAL VAGINOSIS AMPLIFICATION - GC/CHLAMYDIA DNA DET 3. Special screening examination for human papillomavirus (HPV) - ICD9: V73.81, ICD10: Z11.51 -History of a LEEP with last HPV testing 2010. Last Pap was reflex HPV in 2021 - HPV W/GENOTYPE THIN PREP 4. History of loop electrical excision procedure (LEEP) - ICD9: V45.89, ICD10: Z98.890 - HPV W/GENOTYPE THIN PREP 5. Screen for STD (sexually transmitted disease) - ICD9: V74.5, ICD10: Z11.3 -Prior to IUD insertion. - GC/CHLAMYDIA DNA DET Reviewed past medical appointment visit notes and diagnostic results patient and her . Discussed need for further diagnostic testing with endometrial biopsy. Discussed options for treatment before proceeding with hysterectomy but discussed that hysterectomy may be ultimately needed. All questions answered and patient appreciative of discussion. Follow-up at EMB and IUD insertion. Niki Garcia APRN.CARLOS I spent a total of 72 minutes on the date of the service which included preparing to see the patient, [id number] patient care, completing clinical documentation, obtaining and/or reviewing separately obtained history, performing a medically appropriate examination, counseling and educating the patient/family/caregiver, and ordering medications, tests, or procedures. documented in this encounter [facility] 12-02-2022 Miscellaneous Notes Mert approved from 11/02/22-12/02/23 case [id number]. Niki Lopez documented in this encounter [facility] 11-30-2022 History of Present illness Narrative SUBJECTIVE Palmira Laguerre is a 42 year old woman who presents for us results. Patient's last menstrual period was 11/11/2022 (exact date). Cd#20 today. Pain used to hurt with orgasm but not just sitting hurts this cycle. Has TL at time of C/S for contraception. Has used lysteda in the past for heaviness of flow but it is too expensive. She has tearing like pain over C/S area. She used to just have this pain with orgasm, but now has the pain with intercourse. No change in urination. She does have pain with BM. She gets pressure like she needs to move her bowels and nothing comes out. This has only been the past few days. Tylenol doesn't help pain. US reviewed: uterus normal size; fibroid 2.5 cm anterior. Endometrium 16 mm, R ovary with 1.3 cm follicle, L ovary with 1.2 cm follicle. Hyperechoic area in cervix 9 mm unchanged from 05/12. Hypoechoic area in cervix 7 mm. Will try myfembree; if no change will refer for possible [facility] (Dr. Freya Ojeda ) HISTORIES FAMILY HISTORY Problem Relation Age of Onset Hypertension Mother Emphysema Mother Thyroid Mother other (covid) Father Hypertension Brother Emphysema Maternal Grandfather 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 PAST SURGICAL HISTORY Procedure Laterality Date DELIVERY ONLY , low cervical- x1 COLPOSCOPY CERVIX UPPER/ADJACENT VAGINA 2002 Colposcopy-with cryo CONIZATION CERVIX W/WO D&C RPR ELTRD EXC 06/05/2003 LEEP-Cervix PAST SURGICAL HISTORY OF Oct 2008 removal of skin cancer on chest PAST SURGICAL HISTORY OF May 2009 Right Foot Surgery TUBAL LIGATION ALLERGIES Allergen Reactions Environmental Aller* Cats, Dust Mites Grass Pollen Unknown Sulfa (Sulfonamide * Unknown, Hives Current Outpatient Medications Medication Sig valACYclovir (VALTREX) 500 mg tablet Take 1 tablet by mouth once daily. 1 tablet twice daily prn outbreak x 3d then 1 daily for suppression tranexamic acid (LYSTEDA) 650 mg tablet 2 tabs po TID for 5 days during period diphenhydrAMINE-Acetaminophen (TYLENOL PM EXTRA STRENGTH) 25-500 mg tab Take by mouth. methylPREDNISolone (MEDROL, FABIOLA,) 4 mg Dose-Pack As Instructed per package (Patient not taking: No sig reported) naproxen (NAPROSYN) 500 mg tablet Take 1 tablet by mouth twice daily with meals. Start after completion of medrol dose pack (Patient not taking: No sig reported) No current facility-administered medications for this visit. 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 HEENT: Within normal limits PELVIC: deferred RECTOVAGINAL: Deferred EXTREMITIES: No edema, no calf tenderness NEUROLOGICAL: Grossly intact ASSESSMENT/PLAN: 1. Pelvic pain in female - ICD9: 625.9, ICD10: R10.2 (primary diagnosis) - MYFEMBREE 40 MG-1 MG-0.5 MG TABLET 2. Other specified dyspareunia - ICD9: 625.0, ICD10: N94.19 3. Fibroid - ICD9: 215.9, ICD10: D21.9 - MYFEMBREE 40 MG-1 MG-0.5 MG TABLET 4. 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 Ritika Combs [facility] documented in this encounter [facility] 03-31-2022 History of Present illness Narrative SUBJECTIVE Palmira Laguerre is a 42 year old woman who presents for her annual exam: Last pap 03/12, Mammo 2019, Patient's last menstrual period was 03/24/2022.. Periods are heavy. The pill didn't really help. lysteda offered. She soaks thru her menstrual cup and large pad. She bleeds thru at work. Lost her father to covid Medications, Allergies, Surgeries, Family History updated and smoking status updated. Discussed health maintenance, including regular aerobic exercise, low fat diet, and periodic exams. HISTORIES FAMILY HISTORY Problem Relation Age of Onset Hypertension Mother Emphysema Mother Thyroid Mother other (covid) Father Hypertension Brother Emphysema Maternal Grandfather 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 PAST SURGICAL HISTORY Procedure Laterality Date DELIVERY ONLY , low cervical- x1 COLPOSCOPY CERVIX UPPER/ADJACENT VAGINA 2002 Colposcopy-with cryo CONIZATION CERVIX W/WO D&C RPR ELTRD EXC 06/05/2003 LEEP-Cervix PAST SURGICAL HISTORY OF Oct 2008 removal of skin cancer on chest PAST SURGICAL HISTORY OF May 2009 Right Foot Surgery TUBAL LIGATION ACTIVE PROBLEM LIST Personal History of Pre-Term Labor Genital Warts Diabetes Mellitus, Antepartum(648.03) ALLERGIES Allergen Reactions Environmental Aller* Cats, Dust Mites Grass Pollen Unknown Sulfa (Sulfonamide * Unknown, Hives Current Outpatient Medications Medication Sig valACYclovir (VALTREX) 500 mg tablet Take 1 tablet by mouth once daily. 1 tablet twice daily prn outbreak x 3d then 1 daily for suppression tranexamic acid (LYSTEDA) 650 mg tablet 2 tabs po TID for 5 days during period diphenhydrAMINE-Acetaminophen (TYLENOL PM EXTRA STRENGTH) 25-500 mg tab Take by mouth. (Patient not taking: Reported on 03/31/2022 ) methylPREDNISolone (MEDROL, FABIOLA,) 4 mg Dose-Pack As Instructed per package (Patient not taking: Reported on 03/31/2022 ) naproxen (NAPROSYN) 500 mg tablet Take 1 tablet by mouth twice daily with meals. Start after completion of medrol dose pack (Patient not taking: Reported on 03/31/2022 ) No current facility-administered medications for this visit. 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 HEENT: Within normal limits NECK: Supple, no thyromegaly BREASTS: No masses, no nipple discharge HEART: Regular rate and rhythm without murmur, rub, or gallop LUNGS: Clear bilaterally to auscultation ABDOMEN: No masses, non tender, no hernias, no hepatosplenomegaly PELVIC: EGBUS: No lesions, normal appearance VAGINA: No discharge, no blood, no lesions CERVIX: No lesions, non tender UTERUS: Anteverted, normal size, non tender ADNEXA: Non tender, no masses RECTOVAGINAL: Not examined EXTREMITIES: No edema, no calf tenderness NEUROLOGICAL: Grossly intact\ ASSESSMENT/PLAN: 1. Gynecologic exam normal - ICD9: V72.31, ICD10: Z01.419 (primary diagnosis) - Completed pelvic and breast exam - Encouraged monthly BSE - Follow up for annual exam in one year. - PAP REFLEX HPV MRNA WHEN ASCUS - ELTON SCREENING 2. Cervical cancer screening - ICD9: V76.2, ICD10: Z12.4 - PAP REFLEX HPV MRNA WHEN ASCUS 3. Breast cancer screening by mammogram - ICD9: V76.12, ICD10: Z12.31 - ELTON SCREENING 4. 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 Menorrhagia with regular cycle - ICD9: 626.2, ICD10: N92.0 - TRANEXAMIC ACID 650 MG TABLET Chelsie Ames MD Elo Vj documented in this encounter [facility] 03-10-2022 History of Present illness Narrative The following approved medication requests have been transmitted electronically. Signed Prescriptions Disp Refills valACYclovir (VALTREX) 500 mg tablet 90 tablet 0 Sig: Take 1 tablet by mouth once daily. 1 tablet twice daily prn outbreak x 3d then 1 daily for suppression LEEANN: No Chelsie Ames MD documented in this encounter [facility] 09-17-2021 Note HNO ID: [id number] Author: Frida Zeng LPN Service: ? Author Type: LICENSED NURSE Type: Progress Notes Filed: 09/21/2021 2:46 PM Note Text: REVIEW OF SYSTEMS: GENERAL: Well developed, well nourished. No acute distress PAIN: 2/10 CARDIOVASCULAR: Negative for chest pain, leg swelling and palpations. MSK: Francisco foot SKIN: Negative for lesions, rash, itching, metal sensitivity NEURO: Negative for seizure, trauma, numbness/tingling of extremities. ENDOCRINE: Negative for diabetic associated symptoms HEMATOLOGY: Negative for excessive bleeding, clots, bleeding disorders. [facility] 09-17-2021 Note HNO ID: [id number] Author: Marion June DPM Service: ? Author Type: Physician Type: Progress Notes Filed: 09/21/2021 2:46 PM Note Text: CC: Fifth metatarsal phalangeal joint capsulitis/synovitis HPI: This 41 year old female with PMH indicated below presents today for follow up of Fifth metatarsal phalangeal joint capsulitis/synovitis. Since last visit, she has been ambulating in a boot with relief. She states she has been able to ambulate out of the boot with minimal pain. Onset was gradual with worsening course. Pain is mild, rated as a 2/10 pain. She completed course of Medrol dose pack and has been taking Naproxen as instructed.Denies any other pedal complaints. No primary care provider on file. PAST MEDICAL HISTORY Diagnosis Date - Abnormal glandular Papanicolaou smear of cervix - Skin cancer squamous cell on chest Current Outpatient Medications Medication Sig Dispense Refill - diphenhydrAMINE-Acetaminophen (TYLENOL PM EXTRA STRENGTH) 25-500 mg tab Take by mouth. - naproxen (NAPROSYN) 500 mg tablet Take 1 tablet by mouth twice daily with meals. Start after completion of medrol dose pack 60 tablet 1 - methylPREDNISolone (MEDROL, FABIOLA,) 4 mg Dose-Pack As Instructed per package 1 tablet 0 - MULTIVITAMIN ORAL Take by mouth. - levonorgest-eth.estradiol-iron (BALCOLTRA) 0.1 mg-0.02 mg (21)/36.5 mg(7) tab 1 pill by mouth daily (Patient not taking: Reported on 05/23/2020 ) 84 tablet 3 - valACYclovir (VALTREX) 500 mg tablet Take 1 tablet by mouth once daily. (Patient not taking: Reported on 08/27/2021 ) 90 tablet 3 No current facility-administered medications for this visit. ALLERGIES Allergen Reactions - Environmental Aller* Cats, Dust Mites - Sulfa (Sulfonamide * Unknown, Hives PAST SURGICAL HISTORY Procedure Laterality Date - CERVIX UTERI CONIZA LP ELCTRO EXCI 06/05/2003 LEEP-Cervix - DELIVERY ONLY , low cervical- x1 - COLPOSCOPY (VAGINOSCOPY) 2002 Colposcopy-with cryo - PAST SURGICAL HISTORY OF Oct 2008 removal of skin cancer on chest - PAST SURGICAL HISTORY OF May 2009 Right Foot Surgery - TUBAL LIGATION Social History Tobacco Use - Smoking status: Former Smoker Packs/day: 0.50 Years: 18.00 Pack years: 9.00 Types: Cigarettes Quit date: 09/16/2010 Years since quittin.0 - Smokeless tobacco: Never Used Substance Use Topics - Alcohol use: Yes Comment: Rare,NOT WHILE - Drug use: No FAMILY HISTORY Problem Relation Age of Onset - Hypertension Mother - Emphysema Mother - Thyroid Mother - Emphysema Maternal Grandfather - Hypertension Brother REVIEW OF SYSTEMS see tech note I have confirmed and edited as necessary, the PFSH and ROS obtained by others. Physical examination: On General Observation: Patient is a pleasant, cooperative, well developed 41 year old adult female. The patient is alert and oriented to time, place and person. Patient has normal affect and mood. Resp 18 Ht 167.6 cm (5' 6 ) Wt 97.1 kg (214 lb) LMP 05/09/2020 BMI 34.54 kg/m? Vascular: DP and PT pulses are palpable. CFT less than 3 seconds to all digits bilateral. Skin temperature is warm to warm from proximal to distal bilateral. Hair growth is noted. No edema. No varicosities noted. Neuro: Light touch intact bilateral. Derm: Skin texture and turgor within normal limits. Toenails normal in appearance. Webspaces 1-4 clean, dry, intact bilateral. No rashes, subcutaneous nodules, or open lesions noted. No hyperkeratotic tissue. No erythema. Musc: Increased medial longitudinal arch. Muscle strength is 5/5 for all muscle groups including dorsiflexors, plantarflexors, everters, and inverters bilateral. There is a bony prominence noted on the lateral aspect of the fifth metatarsal head bilateral feet. The fifth toe is in a medially contracted position. There is no pain to palpation of the prominent lateral eminence. Range of motion of the 5th MTP joint is full without pain noted. First metatarsophalangeal joint range of motion is slightly decreased bilaterally. No pain or crepitus noted. Impression: This is a 41 year old patient presenting with tailors bunion bilateral feet with suspected capsulitis/synovitis of the 5th metatarsophalangeal joint. Pain has improved significantly with anti-inflammatories and immobilization. Plan: A problem focused history and physical examination were preformed. The patient was educated on clinical findings, diagnosis and treatment plans. Patient state that she understands all that has been explained and all questions were answered to her apparent satisfaction. - Discussed continued shoe gear modification, analgesics and padding to prevent further exacerbation of pain. - Patient is going to wait to get custom orthotics as she does not have insurance at this time. - Continue Naproxen as needed. Follow up in 1 month if symptoms fail to improve or worsen. (more content not included)... [facility] 08-27-2021 Note HNO ID: [id number] Author: Yanira Groves MA Service: ? Author Type: Underwater Photographer Type: Progress Notes Filed: 09/11/2021 9:00 AM Note Text: REVIEW OF SYSTEMS: GENERAL: Well developed, well nourished. No acute distress PAIN: Pain 02/01 CARDIOVASCULAR: Negative for chest pain, leg swelling and palpations. MSK: Negative for joint swelling SKIN: Negative for lesions, rash, itching, metal sensitivity NEURO: Negative for seizure, trauma, numbness/tingling of extremities. ENDOCRINE: Negative for diabetic associated symptoms HEMATOLOGY: Negative for excessive bleeding, clots, bleeding disorders. Yanira Groves MA [facility] 08-27-2021 Note HNO ID: [id number] Author: Marion June DPM Service: ? Author Type: Physician Type: Progress Notes Filed: 09/11/2021 9:00 AM Note Text: CC: Tailors bunion pain bilateral HPI: This 41 year old female with PMH indicated below presents today complaining of a painful bump to the outside of the little toe bilateral x a few months. Onset was gradual with worsening course. Pain is moderate and present in shoes after prolonged weightbearing. Appears to be relieved with removal of shoe gear. Denies any numbness of the 5th toe. Does admit to occasional shooting pains. Relates occasional mild swelling but denies any redness. Patient denies use of analgesics. States she cannot take Mobic. Denies any other pedal complaints. No primary care provider on file. PAST MEDICAL HISTORY Diagnosis Date - Abnormal glandular Papanicolaou smear of cervix - Skin cancer squamous cell on chest Current Outpatient Medications Medication Sig Dispense Refill - diphenhydrAMINE-Acetaminophen (TYLENOL PM EXTRA STRENGTH) 25-500 mg tab Take by mouth. - methylPREDNISolone (MEDROL, FABIOLA,) 4 mg Dose-Pack As Instructed per package 1 tablet 0 - naproxen (NAPROSYN) 500 mg tablet Take 1 tablet by mouth twice daily with meals. Start after completion of medrol dose pack 60 tablet 1 - MULTIVITAMIN ORAL Take by mouth. - levonorgest-eth.estradiol-iron (BALCOLTRA) 0.1 mg-0.02 mg (21)/36.5 mg(7) tab 1 pill by mouth daily (Patient not taking: Reported on 05/23/2020 ) 84 tablet 3 - valACYclovir (VALTREX) 500 mg tablet Take 1 tablet by mouth once daily. (Patient not taking: Reported on 08/27/2021 ) 90 tablet 3 No current facility-administered medications for this visit. ALLERGIES Allergen Reactions - Environmental Aller* Cats, Dust Mites - Sulfa (Sulfonamide * Unknown, Hives PAST SURGICAL HISTORY Procedure Laterality Date - CERVIX UTERI CONIZA LP ELCTRO EXCI 06/05/2003 LEEP-Cervix - DELIVERY ONLY , low cervical- x1 - COLPOSCOPY (VAGINOSCOPY) 2002 Colposcopy-with cryo - PAST SURGICAL HISTORY OF Oct 2008 removal of skin cancer on chest - PAST SURGICAL HISTORY OF May 2009 Right Foot Surgery - TUBAL LIGATION Social History Tobacco Use - Smoking status: Former Smoker Packs/day: 0.50 Years: 18.00 Pack years: 9.00 Types: Cigarettes Quit date: 09/16/2010 Years since quittin.9 - Smokeless tobacco: Never Used Substance Use Topics - Alcohol use: Yes Comment: Rare,NOT WHILE - Drug use: No FAMILY HISTORY Problem Relation Age of Onset - Hypertension Mother - Emphysema Mother - Thyroid Mother - Emphysema Maternal Grandfather - Hypertension Brother REVIEW OF SYSTEMS see tech note I have confirmed and edited as necessary, the PFSH and ROS obtained by others. Physical examination: On General Observation: Patient is a pleasant, cooperative, well developed 41 year old adult female. The patient is alert and oriented to time, place and person. Patient has normal affect and mood. Resp 18 Ht 167.6 cm (5' 6 ) Wt 97.1 kg (214 lb) LMP 05/09/2020 BMI 34.54 kg/m? Vascular: DP and PT pulses are palpable. CFT less than 3 seconds to all digits bilateral. Skin temperature is warm to warm from proximal to distal bilateral. Hair growth is noted. Mild edema to 5th MTPJ bilateral feet. No varicosities noted. Neuro: Light touch intact bilateral. Derm: Skin texture and turgor within normal limits. Toenails normal in appearance. Webspaces 1-4 clean, dry, intact bilateral. No rashes, subcutaneous nodules, or open lesions noted. No hyperkeratotic tissue. No erythema. Musc: Increased medial longitudinal arch. Muscle strength is 5/5 for all muscle groups including dorsiflexors, plantarflexors, everters, and inverters bilateral. There is a bony prominence noted on the lateral aspect of the fifth metatarsal head bilateral feet. The fifth toe is in a medially contracted position. There is pain to palpation of the prominent lateral eminence. Local effusion is noted to the 5th MTP joint. Range of motion of the 5th MTP joint is full with pain noted. First metatarsophalangeal joint range of motion is slightly decreased bilaterally. No pain or crepitus noted. Radiographs: 3 views of the bilateral feet were taken and reviewed today. Radiographic impression: Positive tailors bunion noted with increase in IM 4-5 angle. Mild lateral bowing of the 5th metatarsal noted distally. All cortices are intact. No acute fractures or dislocations noted. No bony cyst or tumors noted. Joint spaces maintained. Evidence of prior bunionectomy on the right. Hardware is in place without evidence of loosening. Increased calcaneal inclination angle. Decreased talar declination angle. Impression: This is a 41 year old patient presenting with tailors bunion bilateral feet with suspected capsulitis/synovitis of the 5th metatarsophalangeal joint. Deformity and pain is exa (more content not included)... 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) 03/12/2011 10/07/2023 Previous delivery, antepartum condition or complication 11/11/2010 08/02/2019 SUPRF HIGH RISK NEC [V23.89] 11/11/2010 08/02/2019 Personal history of pre-term labor 11/11/2010 10/07/2023 documented as of this encounter (statuses as of 10/09/2023) [facility] History of Past illness Narrative* Problem Noted Date Resolved Date Previous delivery, antepartum condition or complication 11/11/2010 08/02/2019 SUPRF HIGH RISK NEC [V23.89] 08/02/2019 documented as of this encounter (statuses as of 03/10/2022) [facility] History of Past illness Narrative* Problem Noted Date Resolved Date Previous delivery, antepartum condition or complication 11/11/2010 08/02/2019 SUPRF HIGH RISK NEC [V23.89] 1 08/02/2019 documented as of this encounter (statuses as of 03/31/2022) [facility] History of Past illness Narrative* Problem Noted Date Resolved Date Previous delivery, antepartum condition or complication 11/11/2010 08/02/2019 SUPRF HIGH RISK NEC [V23.89] 08/02/2019 documented as of this encounter (statuses as of 11/30/2022) [facility] History of Past illness Narrative* Problem Noted Date Resolved Date Previous delivery, antepartum condition or complication 11/11/2010 08/02/2019 SUPRF HIGH RISK NEC [V23.89] 1 08/02/2019 documented as of this encounter (statuses as of 12/01/2022) [facility] History of Past illness Narrative* Problem Noted Date Resolved Date Previous delivery, antepartum condition or complication 11/11/2010 08/02/2019 SUPRF HIGH RISK NEC [V23.89] 08/02/2019 documented as of this encounter (statuses as of 12/02/2022) [facility] History of Past illness Narrative* Problem Noted Date Resolved Date Previous delivery, antepartum condition or complication 11/11/2010 08/02/2019 SUPRF HIGH RISK NEC [V23.89] 08/02/2019 documented as of this encounter (statuses as of 01/30/2023) [facility] History of Past illness Narrative* Problem Noted Date Resolved Date Previous delivery, antepartum condition or complication 11/11/2010 08/02/2019 SUPRF HIGH RISK NEC [V23.89] 08/02/2019 documented as of this encounter (statuses as of 02/01/2023) [facility] History of Past illness Narrative* Problem Noted Date Resolved Date Previous delivery, antepartum condition or complication 11/11/2010 08/02/2019 SUPRF HIGH RISK NEC [V23.89] 08/02/2019 documented as of this encounter (statuses as of 02/23/2023) [facility] History of Past illness Narrative* Problem Noted Date Resolved Date Previous delivery, antepartum condition or complication 11/11/2010 08/02/2019 SUPRF HIGH RISK NEC [V23.89] 08/02/2019 documented as of this encounter (statuses as of 04/24/2023) [facility] History of Past illness Narrative* Problem Noted Date Diagnosed Date Resolved Date Previous delivery, antepartum condition or complication 11/11/2010 08/02/2019 SUPRF HIGH RISK NEC [V23.89] 11/11/2010 08/02/2019 documented as of this encounter (statuses as of 09/29/2023) [facility] History of Past illness Narrative* Problem Noted Date Diagnosed Date Resolved Date Previous delivery, antepartum condition or complication 11/11/2010 08/02/2019 SUPRF HIGH RISK NEC [V23.89] 11/11/2010 08/02/2019 documented as of this encounter (statuses as of 09/29/2023) [facility] History of Past illness Narrative* Problem Noted Date Diagnosed Date Resolved Date Previous delivery, antepartum condition or complication 11/11/2010 08/02/2019 [facility] HIGH RISK NEC [V23.89] 11/11/2010 08/02/2019 documented as of this encounter (statuses as of 10/05/2023) [facility] Diagnosis HSV-2 seropositive Other and unspecified nonspecific immunological findings [facility] Diagnosis Gynecologic exam normal- Primary Cervical cancer screening Screening for malignant neoplasm of the cervix Breast cancer screening by mammogram HSV-2 seropositive Other and unspecified nonspecific immunological findings Menorrhagia with regular cycle Excessive or frequent menstruation [facility] Diagnosis Pelvic pain in female- Primary Unspecified symptom associated with female genital organs Other specified dyspareunia [facility] Diagnosis Pelvic pain in female- Primary Unspecified symptom associated with female genital organs Other specified dyspareunia Fibroid Leiomyoma of uterus, unspecified Menorrhagia with regular cycle Excessive or frequent menstruation [facility] Diagnosis Menorrhagia with regular cycle- Primary Excessive or frequent menstruation Pelvic pain in female Unspecified symptom associated with female genital organs Special screening examination for human papillomavirus (HPV) History of loop electrical excision procedure (LEEP) Other postprocedural status Screen for STD (sexually transmitted disease) Screening examination for venereal disease [facility] Diagnosis Pain due to intrauterine contraceptive device (IUD), initial encounter (HCC) [facility] Diagnosis Pelvic pain in female- Primary Unspecified symptom associated with female genital organs IUD (intrauterine device) in place Presence of intrauterine contraceptive device Dyspareunia, female Dyspareunia Postcoital and contact bleeding Postcoital bleeding [facility] Diagnosis Pelvic pain in female Unspecified symptom associated with female genital organs [facility] Diagnosis Menorrhagia with regular cycle- Primary Excessive or frequent menstruation HSV-2 seropositive Other and unspecified nonspecific immunological findings Encounter for screening mammogram for malignant neoplasm of breast Other screening mammogram Chronic pelvic pain in female Unspecified symptom associated with female genital organs Adenomyosis Endometriosis of uterus documented in this encounter [facility] for referral (narrative)* Diagnostic Procedure Only (Routine) - Pending Review Specialty Diagnoses / Procedures Referred By Isra bhandari Referred To Contact [facility] Diagnoses Gynecologic exam normal Breast cancer screening by mammogram Procedures ELTON SCREENING SCREENING MAMMOGRAPHY BI 2-VIEW BREAST INC CAD Chelsie Ames MD [address] [address] [facility] [address] [place] [address] Referral ID Status Reason Start Date Expiration Date Visits Requested Visits Authorized [id number] Pending Review Auto-Generat ed Referral 03/31/2022 04/30/2023 1 1 [facility] for referral (narrative)* Diagnostic Procedure Only (Routine) - Pending Review Specialty Diagnoses / Procedures Referred By Isra bhandari Referred To Contact [facility] Diagnoses Pelvic pain in female Other specified dyspareunia Procedures US FEMALE PELVIS TRANSVAG US TRANSVAGINAL Chelsie Ames MD [address] [address] [facility] Referral ID Status Reason Start Date Expiration Date Visits Requested Visits Authorized [id number] Pending Review Auto-Generat ed Referral 11/30/2022 12/30/2023 1 1 [facility] for referral (narrative)* Outpatient Procedure (Routine) - Pending Review Specialty Diagnoses / Procedures Referred By Isra bhandari Referred To Contact [facility] Diagnoses Menorrhagia with regular cycle Pelvic pain in female Procedures ENDOMETRIAL BIOPSY ENDOMETRIAL BX W/WO ENDOCERVIX BX W/O DILAT SPX Niki Garcia, [employer] [address] [place] [address] [facility] [address] [place] [address] Referral ID Status Reason Start Date Expiration Date Visits Requested Visits Authorized [id number] Pending Review Auto-Generat ed Referral 01/29/2023 01/29/2024 1 1 * Outpatient Procedure (Routine) - Pending Review Specialty Diagnoses / Procedures Referred By Contac t Referred To Contact [facility] Diagnoses Menorrhagia with regular cycle Pelvic pain in female Procedures INSERT INTRAUTERINE DEVICE LEVONORGESTREL IU 52MG 5 YR INSERT INTRAUTERINE DEVICE Niki Garcia APRN.CNP [address] [place] [address] [facility] [address] [place] [address] Referral ID Status Reason Start Date Expiration Date Visits Requested Visits Authorized [id number] Pending Review Auto-Generat ed Referral 01/29/2023 01/29/2024 1 1 [facility] Diagnostic Procedure Only (Routine) - Closed Specialty Diagnoses / Procedures Referred By Isra t Referred To Contact [facility] Diagnoses Encounter for screening mammogram for malignant neoplasm of breast Procedures ELTON SCREENING W DIOGO SCREENING DIGITAL BREAST TOMOSYNTHESIS BI SCREENING MAMMOGRAPHY BI 2-VIEW BREAST INC CAD Edilberto Bronson MD [address] [place] [address] [facility] [address] [place] [address] Referral ID Status Reason Start Date Expiration Date V isits Requested Visits Authorized [id number] Closed Auto-Generate d Referral 10/07/2023 11/05/2024 1 1 [facility] Summary Purpose Family History No Family History Records FoundNo Family History Records FoundNo Family History Records Found Advance Directives No Advanced Directives Records FoundNo Advanced Directives Records FoundNo Advanced Directives Records Found Reason for Referral Specialty Diagnoses / Procedures Referred By Isra t Referred To Contact Diagnoses Pelvic pain in female Fibroid Menorrhagia with regular cycle Chelsie Ames MD [address] [place] [address] Referral ID Status Reason Start Date Expiration Date V isits Requested Visits Authorized [id number] Pending Review 1 1 Specialty Diagnoses / Procedures Referred By Contac t Referred To Contact Diagnoses Pelvic pain in female Procedures CONSULT TO [employer] PELVIC PAIN OFFICE/OUTPATIENT NEW HIGH MDM 60-74 MINUTES Princess Combs APRN.CNM [address] [place] [address] Referral ID Status Reason Start Date Expiration Date Visits Requested Visits Authorized [id number] Authorized PCP Requested Referral Auto-Generate d Referral 09/24/2023 09/23/2024 1 1 Specialty Diagnoses / Procedures Referred By Contac t Referred To Contact [facility] Diagnoses Pelvic pain in female Procedures US FEMALE PELVIS TRANSVAG US TRANSVAGINAL Princess Combs APRN.CNM [address] [place] [address] [place] [address] Referral ID Status Reason Start Date Expiration Date V isits Requested Visits Authorized [id number] Closed Auto-Generate d Referral 09/24/2023 10/23/2024 1 1 Medications Administered Section Inactive Administered Medications - up to 3 most recent administrations Medication Order MAR Action Action Date Dose Rate Site cefTRIAXone 500 mg intramuscular injection (ROCEPHIN) 500 mg, INTRAMUSCULAR, ONCE, 1 dose, On Wed09/24/23 at 1530, Antimicrobial indication: Empiric Given 09/24/2023 3:37 PM EST 500 mg Buttocks, Left Additional Source Comments INFORMATION SOURCE (unrecogn ized section and content) DATE CREATED AUTHOR AUTHOR'S ORGANIZ ATION 09/24/2021 [facility] DATE CREATED AUTHOR AUTHOR'S ORGANIZ ATION 11/21/2023 [facility] Source Comments (unrecognize d section and content) In the event this informatio n is protected by the Federal Confidentiality of Alcohol and Drug Abuse Patient Records regulations: The Federal rules restrict any use of the information to criminally investigate or prosecute any alcohol or drug abuse patient.[facility] the event this information is protected by the Federal Confidentiality of Alcohol and Drug Abuse Patient Records regulations: The Federal rules restrict any use of the information to criminally investigate or prosecute any alcohol or drug abuse patient.[facility] the event this information is protected by the Federal Confidentiality of Alcohol and Drug Abuse Patient Records regulations: The Federal rules restrict any use of the information to criminally investigate or prosecute any alcohol or drug abuse patient.[facility] the event this information is protected by the Federal Confidentiality of Alcohol and Drug Abuse Patient Records regulations: The Federal rules restrict any use of the information to criminally investigate or prosecute any alcohol or drug abuse patient.[facility] the event this information is protected by the Federal Confidentiality of Alcohol and Drug Abuse Patient Records regulations: The Federal rules restrict any use of the information to criminally investigate or prosecute any alcohol or drug abuse patient.[facility] the event this information is protected by the Federal Confidentiality of Alcohol and Drug Abuse Patient Records regulations: The Federal rules restrict any use of the information to criminally investigate or prosecute any alcohol or drug abuse patient.[facility] the event this information is protected by the Federal Confidentiality of Alcohol and Drug Abuse Patient Records regulations: The Federal rules restrict any use of the information to criminally investigate or prosecute any alcohol or drug abuse patient.[facility] the event this information is protected by the Federal Confidentiality of Alcohol and Drug Abuse Patient Records regulations: The Federal rules restrict any use of the information to criminally investigate or prosecute any alcohol or drug abuse patient.[facility] the event this information is protected by the Federal Confidentiality of Alcohol and Drug Abuse Patient Records regulations: The Federal rules restrict any use of the information to criminally investigate or prosecute any alcohol or drug abuse patient.[facility] the event this information is protected by the Federal Confidentiality of Alcohol and Drug Abuse Patient Records regulations: The Federal rules restrict any use of the information to criminally investigate or prosecute any alcohol or drug abuse patient.[facility] the event this information is protected by the Federal Confidentiality of Alcohol and Drug Abuse Patient Records regulations: The Federal rules restrict any use of the information to criminally investigate or prosecute any alcohol or drug abuse patient.[facility] the event this information is protected by the Federal Confidentiality of Alcohol and Drug Abuse Patient Records regulations: The Federal rules restrict any use of the information to criminally investigate or prosecute any alcohol or drug abuse patient.[facility] the event this information is protected by the Federal Confidentiality of Alcohol and Drug Abuse Patient Records regulations: The Federal rules restrict any use of the information to criminally investigate or prosecute any alcohol or drug abuse patient.[facility] Center[facility] the event this information is protected by the Federal Confidentiality of Alcohol and Drug Abuse Patient Records regulations: The Federal rules restrict any use of the information to criminally investigate or prosecute any alcohol or drug abuse patient.[facility] Reason for Visit (unrecogniz ed section and content) Reason Comments [employer] Ultrasound Pelvic pain, dyspare unia Reason Comments Follow Up Reason Comments approval Reason Comments dyspareunia Reason Comments Results Reason Comments Appointment Reason Comments Irregular Menstrual Cycle Reason Comments Radiology US Specialty Diagnoses / Procedures Referred By Contac t Referred To Contact [facility] Diagnoses Pelvic pain in female Procedures US FEMALE PELVIS TRANSVAG US TRANSVAGINAL Princess Combs APRN.CNM [address] [address] [place] [address] Referral ID Status Reason Start Date Expiration Date V isits Requested Visits Authorized [id number] Closed Auto-Generate d Referral 09/24/2023 10/23/2024 1 1 Reason Comments Discussion Care Teams (unrecognized sec tion and content) [employer] Relationship Specialty Start Date End Date Odalys Saab, DO [address] [place] [address] Obstetrics 12/28/22 [employer] Relationship Specialty Start Date End Date Odalys Saab, DO [address] [place] [address] Obstetrics 12/28/22 [employer] Relationship Specialty Start Date End Date Odalys Saab DO [address] [place] [address] Obstetrics 12/28/22 [employer] Relationship Specialty Start Date End Date Odalys Saab DO [address] [place] [address] Obstetrics 12/28/22 [employer] Relationship Specialty Start Date End Date Odalys Saab DO [address] [place] [address] Obstetrics 12/28/22 [employer] Relationship Specialty Start Date End Date Odalys Saab DO [address] [place] [address] Obstetrics 12/28/22 [employer] Relationship Specialty Start Date End Date Odalys Saab DO [address] [place] [address] Obstetrics 12/28/22 FOR RECORDS PERTAINING TO PATIENTS WHO ARE OR HAVE BEEN ENROLLED IN A CHEMICAL DEPENDENCY/SUBSTANCEABUSE PROGRAM, SOME INFORMATION MAY BE OMITTED. This clinical summary was aggregated from multiple sources. Caution should be exercised in using it in the provision of clinical care. This summary normalizes information from multiple sources, and as a consequence, information in this document may materially change the coding, format and clinical context of patient data. In addition, data may be omitted in some cases. CLINICAL DECISIONS SHOULD BE BASED ON THE PRIMARY CLINICAL RECORDS. [facility] [employer] [facility]. provides no warranty or guarantee of the accuracy or completeness of information in this document.
[2023-11-23 13:01] LABS: Bacteria 0 SEEN /hpf (None Seen); Mucous, Urine 0 SEEN /hpf (<or=2+)
[2023-11-23 13:02] LABS: Color, Urine Yellow (Yellow); Glucose, Dipstick Normal (Normal); Ketone-Dipstick Negative (Negative); Leukocyte Esterase-Dipstick 25 /ul (Negative); Nitrite-Dipstick Negative (Negative); Occult Blood-Urine 10 /ul (Negative); Protein-Dipstick 15 mg/dl (Negative); Urine Bilirubin Dipstick Negative (Negative); Urine Clarity Sl. Cloudy (Clear); Urine Urobilinogen Normal (Normal); Urine pH 6.5 (5.0 - 8.0)
[2023-11-23 13:09] LABS: Red Blood Cells-Urine 0-5 SEEN /hpf (0-5); Squamous Epithelial Cells - UA 0-5 SEEN /hpf (5-10); White Blood Cells 0-5 SEEN /hpf (0-5)
--- NOTE | 2023-11-23 14:50 | RAD_ITS ---
INDICATION: postop abd pain EXAMINATION/TECHNIQUE: Routine IVP was performed following injection of 50 cc cc IV contrast. FINDINGS: Preliminary film of the abdomen shows no evidence of radiopaque calculi. Following intravenous injection of contrast, there is prompt and symmetrical visualization of both kidneys, which are normal in size, contour, and axis. No focal renal mass or hydronephrosis is seen. The ureters are normal in course and caliber. The bladder is partially distended with contrast and shows no intrinsic or extrinsic deformities. No significant post void residual is seen. A Lopez catheter is seen within the urinary bladder. RAD/Pyelogram No Francisco IMPRESSION: Negative IVP Electronically Signed: Baldev Salcido MD at 15:16 EST ,
--- NOTE | 2023-11-23 17:07 | ED.RN ---
instructed by patient to call and mother since her phone is at home, no answer by either family member at this time
--- OUTSIDE RECORDS SUMMARY | 2023-11-23 17:09 | XMS RPT_ITS | CCD ---
Author Name Unknown Address [address] [place] [address] Organization [facility] Care Team Providers Care Central Supply Manager Name Role Phone Unavailable Primary Care Provider UnavailOdalys Crockett DO Unavailable [phone] NIKI GARCIA Referring Unavailable GARCIA, NIKI Referring [...] (SULFONAMIDE ANTIBIOTICS)] Drug Allergy 9 Unknown, Hives [facility] (9 sources) Environmental allergies [Other] Propensity to adverse reactions 6 [facility] (9 sources) Grass pollen; Translations: [GRASS POLLEN] Drug Allergy 6 [facility] (1 source) OTHER; Translations: [OTHER] Propensity to adverse reactions (disorder) 6 [facility] Repository Medications Current Medications Medication [...] 92.44 kg Edilberto Bronson MD Work Phone: [facility] 10-07-2023 08:34-0500 Diastolic blood pressure 94 mm[Hg] Edilberto Bronson MD Work Phone: [facility] 10-07-2023 08:34-0500 Systolic blood pressure 138 mm[Hg] Edilberto Bronson MD Work Phone: [facility] 09-24-2023 14:49-0500 Body weight 92.08 kg Princess Combs APRN.CNM Work Phone: [facility] 09-24-2023 14:49-0500 Diastolic blood pressure 76 mm[Hg] Princess Combs APRN.CNM Work Phone: [facility] 09-24-2023 14:49-0500 Systolic blood pressure 122 mm[Hg] Princess Combs APRN.CNM Work Phone: [facility] 01-29-2023 10:14-0400 Body weight 107.05 kg Niki Garcia SENIOR PRICING ANALYST.PONY EDGER Work Phone: [facility] 01-29-2023 10:14-0400 Diastolic blood pressure 94 mm[Hg] Niki Garcia SENIOR PRICING ANALYST.PONY EDGER Work Phone: [facility] 01-29-2023 10:14-0400 Systolic blood pressure 172 mm[Hg] Niki Garcia SENIOR PRICING ANALYST.PONY EDGER Work Phone: [facility] 11-30-2022 14:50-0500 Body height 167.6 cm Chelsie Ames MD Work Phone: [facility] 11-30-2022 14:50-0500 Body weight 104.78 kg Chelsie Ames MD Work Phone: [facility] 11-30-2022 14:50-0500 Diastolic blood pressure 80 mm[Hg] Chelsie Ames MD Work Phone: [facility] 11-30-2022 14:50-0500 Systolic blood pressure 128 mm[Hg] Chelsie Ames MD Work Phone: [facility] 03-31-2022 17:07-0400 Body height 167.6 cm Chelsie Ames MD Work Phone: [facility] 03-31-2022 17:07-0400 Body weight 102.97 kg Chelsie Ames MD Work Phone: [facility] Encounters Encounter Date Encounter Type Care Provider Facility Start: 11-08-2023 End: 11-08-2023 ambulatory EDILBERTO BRONSON Facility:[facility] Start: 10-07-2023 End: 10-07-2023 ambulatory EDILBERTO BRONSON Facility:[facility] Start: 10-07-2023 End: 10-07-2023 ambulatory EDILBERTO BRONSON Facility:[facility] Start: 10-07-2023 End: 10-07-2023 Patient encounter procedure Edilberto Bronson MD Work Phone: OB/Gynecology Procedures Date Procedure Procedure Detail Performing Clinician Start: 09-24-2023 Smr prim src gram/gi emsa stain bct fungi/cell Geovanna Miramontes SENIOR PRICING ANALYST.PONY EDGER Work Phone: Start: 11-30-2022 Us transvaginal Chelsie Ames MD Work Phone: Start: 03-31-2022 Adult depression screening assessment Chelsie Ames MD Work Phone: Start: 05-23-2020 Adult depression screening assessment Chelsie Ames MD Work Phone: H/O: surgery History of loop electrical excision procedure (LEEP) Niki Garcia APRN.PONY EDGER Work Phone: Plan of Treatment Date Care Activity Detail Author Start: 01-30-2028 HPV TESTING HPV TESTING [facility] Start: 01-30-2028 Screening for malignant neoplasm of cervix HPV Testing [facility] Start: 03-31-2027 PAP TESTING PAP TESTING [facility] Start: 03-31-2027 Screening for malignant neoplasm of cervix Pap Testing [facility] Start: 03-08-2024 HPV TESTING HPV TESTING [facility] Start: 03-08-2024 PAP TESTING PAP TESTING [facility] Start: 06-25-2023 Influenza vaccination [facility] Start: 03-31-2023 Adult depression screening assessment DEPRESSION SCREENING [facility] Start: 10-25-2022 DEPRESSION ASSESSMENT DEPRESSION ASSESSMENT [facility] Start: 06-25-2022 Influenza vaccination [facility] Start: 05-23-2021 Adult depression screening assessment DEPRESSION SCREENING [facility] Start: 2019 Mammography [facility] Start: 2019 Screening for malignant neoplasm of breast Mammogram Screening [facility] Start: 1998 ONE PNEUMOVAX PRIOR TO AGE 65 ONE PNEUMOVAX PRIOR TO AGE 65 [facility] Start: 1998 Urine microalbumin profile [facility] Start: 1997 HEPATITIS C SCREENING HEPATITIS C SCREENING [facility] Start: 1997 Hepatitis C screening Hepatitis C Screening [facility] Start: 01-27-1984 COVID-19 VACCINE (#1) COVID-19 VACCINE (#1) [facility] Start: 1979 COVID-19 VACCINE (#1) COVID-19 VACCINE (#1) [facility] Start: 1979 HEPATITIS B (1 of 3 - 3-dose series) HEPATITIS B (1 of 3 - 3-dose series) [facility] Start: 1979 Hepatitis B Vaccine (1 of 3 - 3-dose series) Hepatitis B Vaccine (1 of 3 - 3-dose series) [facility] BACTERIAL VAGINOSIS AMPLIFICATION BACTERIAL VAGINOSIS AMPLIFICATION Lab Routine Pelvic pain in female 01/29/2023 11:45 AM EDT [facility] Work Phone: KEISHA / TRICHOMONA S AMPLIFICATION KEISHA / TRICHOMONAS AMPLIFICATION Microbiology Routine Pelvic pain in female 01/29/2023 11:45 AM EDT [facility] Work Phone: Chlamydia trachomatis+Neisseria gonorrhoeae DNA [Presence] in Unspecified specimen by MELLISSA with probe detection GC/CHLAMYDIA DNA DET Lab Routine Screen for STD (sexually transmitted disease) Pelvic pain in female 01/29/2023 11:45 AM EDT [facility] Work Phone: Endometrial bx w/wo endocervix bx w/o dilat spx ENDOMETRIAL BIOPSY Procedures Routine Menorrhagia with regular cycle Pelvic pain in female Ordered: 01/29/2023 [facility] Work Phone: Payers Date Payer Category Payer Unknown MMO M[employer] PPO [id number] 2022-Present [phone] [address] [place] [address] PPO [id number] 2022 Unknown [id number] Social History Date Type Detail Facility Start: [facility]-30-2022 [facility] Work Phone: End: 09-16-2010 History of tobacco use Current smoker [facility] Work Phone: End: 09-16-2010 History of tobacco use Cigarette Smoker [facility] Work Phone: Start: 09-17-2021 End: 10-07-2023 Alcohol intake Current drinker of alcohol (finding) [facility] Start: 09-23-2010 History SDOH Alcohol Comment Rare,NOT WHILE [facility] Start: 1979 Sex Assigned At Female [facility] Start: 03-21-2022 End: 03-31-2022 Exposure to SARS-CoV-2 (event) Not sure [facility] Start: 11-30-2022 End: 02-26-2023 Cigarettes smoked current (pack per day) - Reported 0.5 [facility] Start: 11-30-2022 Tobacco use and exposure Smokeless tobacco non-user [facility] Start: 02-26-2023 End: 09-24-2023 Tobacco use panel [facility] Adult Depression Screening Assessment 1 [facility] Start: 08-27-2021 Gender identity Identifies as female gender (finding) [facility] Start: 08-27-2021 Sexual orientation Heterosexual (fin ding) [facility] Clinical Notes 11-11-2010 to 11-19-2023 Edilberto Bronson MD - 10/07/2023 8:29 AM ESTTelephone Encounter - Edilberto Bronson MD - 10/04/2023 4:56 PM ESTTelephone Encounter - Mariam Beltre LPN - 10/01/2023 7:57 AM EST Note Date & Type Note Facility 11-19-2023 Note HNO ID: [id number] Author: EDILBERTO BRONSON MD Service: ? Author Type: Physician Type: Progress Notes Filed: 11/19/2023 12:23 Note Text: Patient underwent TLH, bilateral salpingectomy for adenomyosis, chronic pelvic pain, dysmenorrhea and menorrhagia on at [facility]. She was d/herbie home same day. Pathology pending. Edilberto Bronson MD [facility] 11-08-2023 Note HNO ID: [id number] Author: EDILBERTO BRONSON MD Service: ? Author [...] L2 SAB1 IAB0 Ectopic0 Multiple0 Live Births2 Supervisor Carding History LMP: 10/02/2023, IUD Age at Menarche: Age at First : Age at Menopause: Supervisor Carding History Comments: Sexual Activity: Yes; Male Contraception: [...] Reviewed previous surgical history. Edilberto Bronson MD [facility] 10-07-2023 Note HNO ID: [id number] Author: Terri Gaitan RT(R) Service: ? Author Type: Chief Business Officer Type: Progress Notes Filed: 10/07/2023 10:30 AM [...] RT Nicolasa(R) October 07, 2023 10:29 AM [facility] 10-07-2023 Note HNO ID: [id number] Author: Edilberto Bronson MD Service: ? 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 Hasn't helped the pain, feels like the [...] L2 SAB1 IAB0 Ectopic0 Multiple0 Live Births2 Supervisor Carding History LMP: 10/02/2023, IUD Age at Menarche: Age at First : Age at Menopause: Supervisor Carding History Comments: Sexual Activity: Yes; Male Contraception: [...] external genitalia normal, normal Bartholin's glands, urethra, Mcnair's glands, no vulvar lesions, no cervical lesions, [...] failed conservative measures including IUD. Short and termite treater risks of hyst reviewed. Postop limitations and expectations reviewed. D/w her may get exacerbation of pain since has chronic pain. She would like to proceed w/ hyst. IUD is helping decrease flow but still bleeding frequently, so will leave it i (more content not included)... 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 Hasn't helped the pain, feels like the [...] L2 SAB1 IAB0 Ectopic0 Multiple0 Live Births2 Supervisor Carding History LMP: 10/02/2023, IUD Age at Menarche: Age at First : Age at Menopause: Supervisor Carding History Comments: Sexual Activity: Yes; Male Contraception: [...] external genitalia normal, normal Bartholin's glands, urethra, Mcnair's glands, no vulvar lesions, no cervical lesions, [...] failed conservative measures including IUD. Short and termite treater risks of hyst reviewed. Postop limitations and [...] 4 - Moderate documented in this encounter [facility] 10-04-2023 Miscellaneous Notes Schedule w/ one the physicians -SW/RR/DM to discuss pain and adneomyosis, possible hysterectomy. Edilberto Bronson MD documented in this encounter [facility] 10-01-2023 Miscellaneous Notes See [employer] message Patient is ok with a virtual visit, Please advise where patient can be added. No openings until 10/20 and patient did not want to wait that long to discuss results. ----- Message from Princess Combs APRN.LUCIA sent at 09/30/2023 9:21 AM EST ----- Please schedule patient with me for a virtual visit in next two weeks for results. Thanks, Princess Combs APRN.CNM documented in this encounter [facility] 09-28-2023 Note HNO ID: [id number] Author: Niharika Brito RDMS Service: ? Author Type: Chief Business Officer Type: Progress Notes Filed: 09/28/2023 11:25 AM [...] Brito RDMS September 28, 2023 11:25 AM [facility] 09-28-2023 History of Present illness Narrative Radiology [...] 2023 11:25 AM documented in this encounter [facility] 09-24-2023 Note HNO ID: [id number] Author: Princess Combs APRN.CNM Service: ? Author Type: Hydraulic Technician Type: Progress Notes Filed: 09/28/2023 3:54 PM Note Text: Palmira Laguerre is a 43 year old female who presents for problem visit for pelvic pain. HPI: Pelvic pain, warm, achy, pinching, full. Bleeding has been constant since June. Not always heavy but always there. Bleeding comes always after intercourse. Pain with intercourse. Mirena IUD in place, placed 02/20/23. 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 Pelvic pain was still present prior to IUD with menses and at other times but worse after IUD. Tubal ligation. OB History T1 L2 SAB1 IAB0 Ectopic0 Multiple0 Live Births2 Supervisor Carding History LMP: 02/20/2023 (Exact Date), IUD Age at Menarche: Age at First : Age at Menopause: Supervisor Carding History Comments: Sexual Activity: Yes; Male Contraception: [...] external genitalia normal, normal Bartholin's glands, urethra, Mcnair's glands, no vulvar lesions, no cervical lesions, [...] US FEMALE PELVIS TRANSVAG - 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 PELVIC PAIN - BACT/KEISHA VAG GRAM STAIN 2. IUD (intrauterine device) in place - ICD9: V45.51, ICD10: Z97.5 3. Dyspareunia, female - ICD9: 625.0, ICD10: N94.10 4. Postcoital and contact bleeding - ICD9: 626.7, ICD10: N93.0 -Previous round of doxycycline. Discussed can try Rocephin injection and see if this helps. Princess Combs APRN.ALONSOM [facility] 09-24-2023 Nurse Note The patient is here for an injection of Rocephin, reconstituted with 0.9 ml of Xylocaine 1% without Epinephrine (Lot #: [id number], Exp. date: 12/21). Dose: 500 MG Amount wasted: none. Route: Intramuscular Site: left upper quadrant gluteus [employer]: [employer] Lot #: [id number] Expiration Date: 02/2025 The date due for the next injection is n/a Patient was observed in the office for 15 minutes. No signs of allergic reaction. Elo Montana RN documented in this encounter [facility] 09-24-2023 History of Present illness Narrative Palmira Laguerre is a 43 year old female who presents for problem visit for pelvic pain. HPI: Pelvic pain, warm, achy, pinching, full. Bleeding has been constant since June. Not always heavy but always there. Bleeding comes always after intercourse. Pain with intercourse. Mirena IUD in place, placed 02/20/23. 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 Pelvic pain was still present prior to IUD with menses and at other times but worse after IUD. Tubal ligation. OB History T1 L2 SAB1 IAB0 Ectopic0 Multiple0 Live Births2 Supervisor Carding History LMP: 02/20/2023 (Exact Date), IUD Age at Menarche: Age at First : Age at Menopause: Supervisor Carding History Comments: Sexual Activity: Yes; Male Contraception: [...] external genitalia normal, normal Bartholin's glands, urethra, Mcnair's glands, no vulvar lesions, no cervical lesions, [...] US FEMALE PELVIS TRANSVAG - 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 PELVIC PAIN - BACT/KEISHA VAG GRAM STAIN 2. IUD (intrauterine device) in place - ICD9: V45.51, ICD10: Z97.5 3. Dyspareunia, female - ICD9: 625.0, ICD10: N94.10 4. Postcoital and contact bleeding - ICD9: 626.7, ICD10: N93.0 -Previous round of doxycycline. Discussed can try Rocephin injection and see if this helps. Princess Combs APRN.CNM documented in this encounter [facility] 04-23-2023 Miscellaneous Notes Please see pt's mychart message. Pt no longer lives in [place]. Please see corrected pharmacy. Marilynn De Leon LPN Please review pt's [employer]hart message and further advise. Marilynn De Leon LPN documented in this encounter [facility] 04-02-2023 Note HNO ID: [id number] Author: Niki Garcia APRN.PONY EDGER Service: ? Author Type: Nurse Practitioner Type: Progress Notes Filed: 04/02/2023 3:13 PM Note Text: Traffic Rate Clerk offered: Patient declines. Palmira Laguerre presents today [...] Medical Decision Making Level: 4 - Moderate [facility] 02-26-2023 Note HNO ID: [id number] Author: Niki Garcia APRN.CARLOS Service: ? Author [...] IUD source: office provided IUD lot #: [id number] Exp date: 03/23/2025 UNIVERSAL PROTOCOL / SAFETY [...] up in one month. Niki Garcia APRN.CNP [facility] 02-22-2023 Miscellaneous Notes EMB and IUD insertion scheduled. Mery Baker RN Pt phoned in to get scheduled for an IUD insertion and cervical biopsy. She started her period on 02/21/2023. Marti Mark February 22, 2023 12:23 PM documented in this encounter [facility] 02-01-2023 Miscellaneous Notes Resent RX. Isis Toledo APRN.CARLOS Patient notified and voiced understanding. Rx sent to incorrect pharmacy. Please resend with updated pharmacy. Olivia Dempsey RN +yeast, Diflucan ordered. Isis Toledo APRN.CNP documented in this encounter [facility] 01-29-2023 Note HNO ID: [id number] Author: Niki Garcia APRN.CNP Service: ? Author Type: Nurse Practitioner Type: Progress Notes Filed: 01/29/2023 5:49 PM Note Text: Traffic Rate Clerk offered: Patient declines. Palmira Laguerre is a [...] L2 SAB1 IAB0 Ectopic0 Multiple0 Live Births2 Supervisor Carding History LMP: 11/11/2022 (Exact Date), Having periods Age at Menarche: Age at First : Age at Menopause: Supervisor Carding History Comments: Sexual Activity: Yes; Male Contraception: [...] use: No Current Outpatient Medications Medication Sig lcwhkatfl-lobhqxtqu-nltcvzrpht (MYFEMBREE) 40-1-0.5 mg tablet Take 1 tablet [...] external genitalia normal, normal Bartholin's glands, urethra, Mcnair's glands, no vulvar lesions, no cervical lesions, [...] testing 2010. Last (more content not included)... [facility] 01-29-2023 Instructions Niki Garcia APRN.CNP - 01/29/2023 11:01 AM EDT Schedule when on menses or not Ibuprofen 600-800 prior to appointment Vaginal cytotec Eat before appointment. documented in this encounter [facility] 01-29-2023 History of Present illness Narrative Traffic Rate Clerk offered: Patient declines. Palmira Laguerre is a [...] L2 SAB1 IAB0 Ectopic0 Multiple0 Live Births2 Supervisor Carding History LMP: 11/11/2022 (Exact Date), Having periods Age at Menarche: Age at First : Age at Menopause: Supervisor Carding History Comments: Sexual Activity: Yes; Male Contraception: [...] use: No Current Outpatient Medications Medication Sig dpjzmzcet-fjbjjsukt-npitebvpgl (MYFEMBREE) 40-1-0.5 mg tablet Take 1 tablet [...] external genitalia normal, normal Bartholin's glands, urethra, Mcnair's glands, no vulvar lesions, no cervical lesions, [...] which included preparing to see the patient, mxdp-se-vjoc patient care, completing clinical documentation, obtaining and/or reviewing separately obtained history, performing a medically appropriate examination, counseling and educating the patient/family/caregiver, and ordering medications, tests, or procedures. documented in this encounter [facility] 12-02-2022 Miscellaneous Notes Mert approved from 11/02/22-12/02/23 case [id number]. Niki Lopez documented in this encounter [facility] 11-30-2022 History of Present illness Narrative SUBJECTIVE [...] No history of dysuria, frequency or incontinence PUBLICATION DESIGNER: Negative for abnormal vaginal bleeding, abnormal vaginal [...] MD Elo Wagner documented in this encounter [facility] 11-30-2022 History of Present illness Narrative Patient here for PUBLICATION DESIGNER PELVIC US. Ritika Combs [facility] documented in this encounter [facility] 03-31-2022 History of Present illness Narrative SUBJECTIVE [...] No history of dysuria, frequency or incontinence PUBLICATION DESIGNER: Negative for abnormal vaginal bleeding, abnormal vaginal [...] MD Elo Vj documented in this encounter [facility] 03-10-2022 History of Present illness Narrative The following approved medication requests have been transmitted electronically. Signed Prescriptions Disp Refills valACYclovir (VALTREX) 500 mg tablet 90 tablet 0 Sig: Take 1 tablet by mouth once daily. 1 tablet twice daily prn outbreak x 3d then 1 daily for suppression LEEANN: No Chelsie Ames MD documented in this encounter [facility] 09-17-2021 Note HNO ID: [id number] Author: Frida Zeng LPN Service: ? Author [...] Negative for excessive bleeding, clots, bleeding disorders. [facility] 09-17-2021 Note HNO ID: [id number] Author: Marion June DPM Service: ? Author [...] improve or worsen. (more content not included)... [facility] 08-27-2021 Note HNO ID: [id number] Author: Yanira Groves MA Service: ? Author Type: Assistant Store Manager Operations Type: Progress Notes Filed: 09/11/2021 9:00 AM [...] bleeding, clots, bleeding disorders. Yanira Groves MA [facility] 08-27-2021 Note HNO ID: [id number] Author: Marion June DPM Service: ? Author [...] pain is exa (more content not included)... 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) 03/12/2011 10/07/2023 Previous delivery, antepartum condition or complication 11/11/2010 08/02/2019 SUPRF HIGH RISK NEC [V23.89] 11/11/2010 08/02/2019 Personal history of pre-term labor 11/11/2010 10/07/2023 documented as of this encounter (statuses as of 10/09/2023) [facility] History of Past illness Narrative* Problem Noted Date Resolved Date Previous delivery, antepartum condition or complication 11/11/2010 08/02/2019 SUPRF HIGH RISK NEC [V23.89] 08/02/2019 documented as of this encounter (statuses as of 03/10/2022) [facility] History of Past illness Narrative* Problem Noted Date Resolved Date Previous delivery, antepartum condition or complication 11/11/2010 08/02/2019 SUPRF HIGH RISK NEC [V23.89] 1 08/02/2019 documented as of this encounter (statuses as of 03/31/2022) [facility] History of Past illness Narrative* Problem Noted Date Resolved Date Previous delivery, antepartum condition or complication 11/11/2010 08/02/2019 SUPRF HIGH RISK NEC [V23.89] 08/02/2019 documented as of this encounter (statuses as of 11/30/2022) [facility] History of Past illness Narrative* Problem Noted Date Resolved Date Previous delivery, antepartum condition or complication 11/11/2010 08/02/2019 SUPRF HIGH RISK NEC [V23.89] 1 08/02/2019 documented as of this encounter (statuses as of 12/01/2022) [facility] History of Past illness Narrative* Problem Noted Date Resolved Date Previous delivery, antepartum condition or complication 11/11/2010 08/02/2019 SUPRF HIGH RISK NEC [V23.89] 08/02/2019 documented as of this encounter (statuses as of 12/02/2022) [facility] History of Past illness Narrative* Problem Noted Date Resolved Date Previous delivery, antepartum condition or complication 11/11/2010 08/02/2019 SUPRF HIGH RISK NEC [V23.89] 08/02/2019 documented as of this encounter (statuses as of 01/30/2023) [facility] History of Past illness Narrative* Problem Noted Date Resolved Date Previous delivery, antepartum condition or complication 11/11/2010 08/02/2019 SUPRF HIGH RISK NEC [V23.89] 08/02/2019 documented as of this encounter (statuses as of 02/01/2023) [facility] History of Past illness Narrative* Problem Noted Date Resolved Date Previous delivery, antepartum condition or complication 11/11/2010 08/02/2019 SUPRF HIGH RISK NEC [V23.89] 08/02/2019 documented as of this encounter (statuses as of 02/23/2023) [facility]01-18-2011 History of Past illness Narrative* Problem Noted Date Resolved Date Previous delivery, antepartum condition or complication 11/11/2010 08/02/2019 SUPRF HIGH RISK NEC [V23.89] 08/02/2019 documented as of this encounter (statuses as of 04/24/2023) [facility]01-18-2011 History of Past illness Narrative* Problem Noted Date Diagnosed Date Resolved Date Previous delivery, antepartum condition or complication 11/11/2010 08/02/2019 SUPRF HIGH RISK NEC [V23.89] 11/11/2010 08/02/2019 documented as of this encounter (statuses as of 09/29/2023) [facility]01-18-2011 History of Past illness Narrative* Problem Noted Date Diagnosed Date Resolved Date Previous delivery, antepartum condition or complication 11/11/2010 08/02/2019 SUPRF HIGH RISK NEC [V23.89] 11/11/2010 08/02/2019 documented as of this encounter (statuses as of 09/29/2023) [facility]01-18-2011 History of Past illness Narrative* Problem Noted Date Diagnosed Date Resolved Date Previous delivery, antepartum condition or complication 11/11/2010 08/02/2019 [facility] HIGH RISK NEC [V23.89] 11/11/2010 08/02/2019 documented as of this encounter (statuses as of 10/05/2023) [facility] Diagnosis HSV-2 seropositive Other and unspecified nonspecific immunological findings [facility] Diagnosis Gynecologic exam normal- Primary Cervical cancer screening Screening for malignant neoplasm of the cervix Breast cancer screening by mammogram HSV-2 seropositive Other and unspecified nonspecific immunological findings Menorrhagia with regular cycle Excessive or frequent menstruation [facility] Diagnosis Pelvic pain in female- Primary Unspecified symptom associated with female genital organs Other specified dyspareunia documented [facility] Diagnosis Pelvic pain in female- Primary Unspecified symptom associated with female genital organs Other specified dyspareunia Fibroid Leiomyoma of uterus, unspecified Menorrhagia with regular cycle Excessive or frequent menstruation [facility] Diagnosis Menorrhagia with regular cycle- Primary Excessive or frequent menstruation Pelvic pain in female Unspecified symptom associated with female genital organs Special screening examination for human papillomavirus (HPV) History of loop electrical excision procedure (LEEP) Other postprocedural status Screen for STD (sexually transmitted disease) Screening examination for venereal disease documented [facility] Diagnosis Pain due to intrauterine contraceptive device (IUD), initial encounter (HCC) [facility] Diagnosis Pelvic pain in female- Primary Unspecified symptom associated with female genital organs IUD (intrauterine device) in place Presence of intrauterine contraceptive device Dyspareunia, female Dyspareunia Postcoital and contact bleeding Postcoital bleeding documented [facility] Diagnosis Pelvic pain in female Unspecified symptom associated with female genital organs [facility] Diagnosis Menorrhagia with regular cycle- Primary Excessive or frequent menstruation HSV-2 seropositive Other and unspecified nonspecific immunological findings Encounter for screening mammogram for malignant neoplasm of breast Other screening mammogram Chronic pelvic pain in female Unspecified symptom associated with female genital organs Adenomyosis Endometriosis of uterus documented in this encounter [facility] for referral (narrative)* Diagnostic Procedure Only (Routine) - Pending Review Specialty Diagnoses / Procedures Referred By Isra bhandari Referred To Contact [facility] Diagnoses Gynecologic exam normal Breast cancer screening by mammogram Procedures ELTON SCREENING SCREENING MAMMOGRAPHY BI 2-VIEW BREAST INC CAD Chelsie Ames MD [address] [address] [facility] [address] [place] [address] Referral ID Status Reason Start Date Expiration Date Visits Requested Visits Authorized [id number] Pending Review Auto-Generat ed Referral 03/31/2022 04/30/2023 1 1 [facility] for referral (narrative)* Diagnostic Procedure Only (Routine) - Pending Review Specialty Diagnoses / Procedures Referred By Isra bhandari Referred To Contact [facility] Diagnoses Pelvic pain in female Other specified dyspareunia Procedures US FEMALE PELVIS TRANSVAG US TRANSVAGINAL Chelsie Ames MD [address] [address] [facility] Referral ID Status Reason Start Date Expiration Date Visits Requested Visits Authorized [id number] Pending Review Auto-Generat ed Referral 11/30/2022 12/30/2023 1 1 [facility] for referral (narrative)* Outpatient Procedure (Routine) - Pending Review Specialty Diagnoses / Procedures Referred By Isra bhandari Referred To Contact [facility] Diagnoses Menorrhagia with regular cycle Pelvic pain in female Procedures ENDOMETRIAL BIOPSY ENDOMETRIAL BX W/WO ENDOCERVIX BX W/O DILAT SPX Niki Garcia, WILFREDO.PONY EDGER [address] [place] [address] [facility] [address] [place] [address] Referral ID Status Reason Start Date Expiration Date Visits Requested Visits Authorized [id number] Pending Review Auto-Generat ed Referral 01/29/2023 01/29/2024 1 1 * Outpatient Procedure (Routine) - Pending Review Specialty Diagnoses / Procedures Referred By Contac t Referred To Contact [facility] Diagnoses Menorrhagia with regular cycle Pelvic pain in female Procedures INSERT INTRAUTERINE DEVICE LEVONORGESTREL IU 52MG 5 YR INSERT INTRAUTERINE DEVICE Niki Garcia APRN.CNP [address] [place] [address] [facility] [address] [place] [address] Referral ID Status Reason Start Date Expiration Date Visits Requested Visits Authorized [id number] Pending Review Auto-Generat ed Referral 01/29/2023 01/29/2024 1 1 [facility] Diagnostic Procedure Only (Routine) - Closed Specialty Diagnoses / Procedures Referred By Isra t Referred To Contact [facility] Diagnoses Encounter for screening mammogram for malignant neoplasm of breast Procedures ELTON SCREENING W DIOGO SCREENING DIGITAL BREAST TOMOSYNTHESIS BI SCREENING MAMMOGRAPHY BI 2-VIEW BREAST INC CAD Edilberto Bronson MD [address] [place] [address] [facility] [address] [place] [address] Referral ID Status Reason Start Date Expiration Date V isits Requested Visits Authorized [id number] Closed Auto-Generate d Referral 10/07/2023 11/05/2024 1 1 [facility] Summary Purpose Family History No Family History [...] Ames MD [address] [place] [address] Referral ID Status Reason Start Date Expiration Date V isits Requested Visits Authorized [id number] Pending Review 1 1 Specialty Diagnoses / Procedures Referred By Contac t Referred To Contact Diagnoses Pelvic pain in female Procedures 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 PELVIC PAIN OFFICE/OUTPATIENT NEW HIGH MDM 60-74 MINUTES Princess Combs APRN.CNM [address] [place] [address] Referral ID Status Reason Start Date Expiration Date Visits Requested Visits Authorized [id number] Authorized PCP Requested Referral Auto-Generate d Referral 09/24/2023 09/23/2024 1 1 Specialty Diagnoses / Procedures Referred By Contac t Referred To Contact [facility] Diagnoses Pelvic pain in female Procedures US FEMALE PELVIS TRANSVAG US TRANSVAGINAL Princess Combs APRN.CNM [address] [place] [address] [place] [address] Referral ID Status Reason Start Date Expiration Date V isits Requested Visits Authorized [id number] Closed Auto-Generate d Referral 09/24/2023 10/23/2024 1 [...] DATE CREATED AUTHOR AUTHOR'S ORGANIZ ATION 09/24/2021 [facility] DATE CREATED AUTHOR AUTHOR'S ORGANIZ ATION 11/21/2023 [facility] Source Comments (unrecognize d section and content) In the event this informatio n is protected by the Federal Confidentiality of Alcohol and Drug Abuse Patient Records regulations: The Federal rules restrict any use of the information to criminally investigate or prosecute any alcohol or drug abuse patient.[facility] the event this information is protected by the Federal Confidentiality of Alcohol and Drug Abuse Patient Records regulations: The Federal rules restrict any use of the information to criminally investigate or prosecute any alcohol or drug abuse patient.[facility] the event this information is protected by the Federal Confidentiality of Alcohol and Drug Abuse Patient Records regulations: The Federal rules restrict any use of the information to criminally investigate or prosecute any alcohol or drug abuse patient.[facility] the event this information is protected by the Federal Confidentiality of Alcohol and Drug Abuse Patient Records regulations: The Federal rules restrict any use of the information to criminally investigate or prosecute any alcohol or drug abuse patient.[facility] the event this information is protected by the Federal Confidentiality of Alcohol and Drug Abuse Patient Records regulations: The Federal rules restrict any use of the information to criminally investigate or prosecute any alcohol or drug abuse patient.[facility] the event this information is protected by the Federal Confidentiality of Alcohol and Drug Abuse Patient Records regulations: The Federal rules restrict any use of the information to criminally investigate or prosecute any alcohol or drug abuse patient.[facility] the event this information is protected by the Federal Confidentiality of Alcohol and Drug Abuse Patient Records regulations: The Federal rules restrict any use of the information to criminally investigate or prosecute any alcohol or drug abuse patient.[facility] the event this information is protected by the Federal Confidentiality of Alcohol and Drug Abuse Patient Records regulations: The Federal rules restrict any use of the information to criminally investigate or prosecute any alcohol or drug abuse patient.[facility] the event this information is protected by the Federal Confidentiality of Alcohol and Drug Abuse Patient Records regulations: The Federal rules restrict any use of the information to criminally investigate or prosecute any alcohol or drug abuse patient.[facility] the event this information is protected by the Federal Confidentiality of Alcohol and Drug Abuse Patient Records regulations: The Federal rules restrict any use of the information to criminally investigate or prosecute any alcohol or drug abuse patient.[facility] the event this information is protected by the Federal Confidentiality of Alcohol and Drug Abuse Patient Records regulations: The Federal rules restrict any use of the information to criminally investigate or prosecute any alcohol or drug abuse patient.[facility] the event this information is protected by the Federal Confidentiality of Alcohol and Drug Abuse Patient Records regulations: The Federal rules restrict any use of the information to criminally investigate or prosecute any alcohol or drug abuse patient.[facility] the event this information is protected by the Federal Confidentiality of Alcohol and Drug Abuse Patient Records regulations: The Federal rules restrict any use of the information to criminally investigate or prosecute any alcohol or drug abuse patient.[facility] the event this information is protected by the Federal Confidentiality of Alcohol and Drug Abuse Patient Records regulations: The Federal rules restrict any use of the information to criminally investigate or prosecute any alcohol or drug abuse patient.[facility] Reason for Visit (unrecogniz ed section and content) 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 Pelvic pain, dyspare unia Reason Comments Follow Up Reason Comments approval Reason Comments dyspareunia Reason Comments Results Reason Comments Appointment Reason Comments Irregular Menstrual Cycle Reason Comments Radiology US Specialty Diagnoses / Procedures Referred By Contac t Referred To Contact [facility] Diagnoses Pelvic pain in female Procedures US FEMALE PELVIS TRANSVAG US TRANSVAGINAL Princess Combs APRN.CNM [address] [place] [address] [place] [address] Referral ID Status Reason Start Date Expiration Date V isits Requested Visits Authorized [id number] Closed Auto-Generate d Referral 09/24/2023 10/23/2024 1 1 Reason Comments Discussion Care Teams (unrecognized sec tion and content) Central Supply Manager Relationship Specialty Start Date End Date Odalys Saab, DO [address] [place] [address] Obstetrics 12/28/22 Central Supply Manager Relationship Specialty Start Date End Date Odalys Saab, DO [address] [place] [address] Obstetrics 12/28/22 Central Supply Manager Relationship Specialty Start Date End Date Odalys Saab DO [address] [place] [address] Obstetrics 12/28/22 Central Supply Manager Relationship Specialty Start Date End Date Odalys Saab DO [address] [place] [address] Obstetrics 12/28/22 Central Supply Manager Relationship Specialty Start Date End Date Odalys Saab DO [address] [place] [address] Obstetrics 12/28/22 Central Supply Manager Relationship Specialty Start Date End Date Odalys Saab DO [address] [place] [address] Obstetrics 12/28/22 Central Supply Manager Relationship Specialty Start Date End Date Odalys Saab DO [address] [place] [address] Obstetrics 12/28/22 FOR RECORDS PERTAINING TO PATIENTS [...] BE BASED ON THE PRIMARY CLINICAL RECORDS. [facility]. provides no warranty or guarantee of the accuracy or completeness of information in this document.
--- NOTE | 2023-11-23 17:18 | PCM.HP.STD ---
HPI - General General Date of Admission: 11/23/23 Date of Service: 11/23/23 Chief Complaint: Severe abdominal pain HPI Narrative LAURA LAGUERRE, is a 43 F who presents Patient is a 43-year-old female with no significant medical history who presents to the emergency department for lower abdominal pain. Patient had a hysterectomy 4 days ago on November [address] Ayon here at [facility]. Patient states that she was doing well until this morning when she got up this morning to use the restroom. When she got up and urinated she felt severe pain in her mid to lower abdomen. Then she felt spasms near her belly button. The EMS was called & brought her to the ED. IV pain medicine has helped her pain. She states her pain is much better since having a rudd placed. Also she reports that she wasn't having any trouble voiding but once in the ED was unable to void. Also her last BM was Wednesday but denies other GI concerns. Denies any fever, chills or other ill symptoms. [facility] Medical History Broken teeth Cancer Fatty liver Former smoker Heartburn Wears glasses Home Medications acetaminophen 500 mg tablet (Acetaminophen Extra Strength) 1,000 mg (2 x 500 mg) PO Q6H PRN FEVER/PAIN 20 days #40 tabs 11/19/23 [Rx Last Taken 11/22/23] ibuprofen 600 mg tablet 600 mg PO Q6H PRN PAIN 20 days #40 TABLETS 11/19/23 [Rx Last Taken 11/22/23] oxycodone 5 mg tablet 5 mg PO Q6H PRN SEVERE PAIN 11/23/23 [History Last Taken Unknown] Allergy/AdvReac Type Severity Reaction Status Date / Time Sulfa (Sulfonamide Allergy Anaphylaxis Verified 11/19/23 05:46 Antibiotics) Surgical History History of section History of foot surgery History of surgical removal of skin lesion History of wisdom tooth extraction S/P partial hysterectomy Social History Smoking Status: Former smoker Vital Signs Vital Signs Vital Signs: 11/23/23 10:36 11/23/23 11:11 11/23/23 11:59 Temperature 97.1 F L Temperature Source Temporal Pulse Rate 56 L 67 62 Respiratory Rate 16 64 H 16 Blood Pressure 125/78 H 125/80 H 135/71 H Blood Pressure Mean 93 95 92 Pulse Ox 98 99 100 Oxygen Delivery Method Room Air Room Air 11/23/23 13:00 11/23/23 14:16 11/23/23 15:43 Temperature 98.4 F 97.5 F L Temperature Source Temporal Pulse Rate 72 72 65 Respiratory Rate 16 16 16 Blood Pressure 117/61 140/94 H 128/82 H Blood Pressure Mean 79 109 97 Pulse Ox 98 98 98 Oxygen Delivery Method Room Air Room Air Weight Weight: 206 lb 2.115 oz Body Mass Index (BMI) 33.3 Physical Exam Const alert, oriented x3 and no apparent distress Resp normal respiratory effort GI soft to palpation and non-distended GI Narrative: mildly tender near umbilicus & lower abdomen. no rebound or guarding. Neuro CN's II-XII intact bilaterally Results Lab / Micro Data Attestation: I reviewed the patient's lab results. 11/23/23 11:35 11/23/23 11:35 Labs: Laboratory Results - last 24 hr 11/23/23 11:35: WBC 11.4 H, RBC 4.86, Hgb 13.8, Hct 41.9, MCV 86.2, MCH 28.4, MCHC 32.9, RDW Std Deviation 40.3, RDW Coeff of Jessica 13.1, Plt Count 208, MPV 10.4, Immature Gran % (Auto) 0.300, Neut % (Auto) 76.4 H, Lymph % (Auto) 12.9 L, [place] % (Auto) 6.3, Eos % (Auto) 3.8, Baso % (Auto) 0.3, Absolute Neuts (auto) 8.7 H, Absolute Lymphs (auto) 1.47, Nucleated RBC % 0, Sodium 139, Potassium 4.3, Chloride 108 H, Carbon Dioxide 29.0, Anion Gap 2 L, BUN 22 H, Creatinine 1.60 H, Estim Creat Clear Calc 51.69, Est GFR (MDRD) Af Amer 45 L, Est GFR (MDRD) Non-Af 37 L, BUN/Creatinine Ratio 13.8, Glucose 102, Lactic Acid 1.3, Calcium 8.7, Total Bilirubin 0.40, AST 17, ALT 39, Alkaline Phosphatase 67, Total Protein 6.5, Albumin 3.2, Globulin 3.3, Albumin/Globulin Ratio 1.0, Lipase 26 11/23/23 12:55: Urine Color Yellow, Urine Clarity Sl. Cloudy, Urine pH 6.5, Ur Specific [place] 1.010, Urine Protein 15 H, Urine Glucose (UA) Normal, Urine Ketones Negative, Urine Occult Blood 10 H, Urine Nitrite Negative, Urine Bilirubin Negative, Urine Urobilinogen Normal, Ur Leukocyte Esterase 25 H, Urine RBC 0-5 SEEN, Urine WBC 0-5 SEEN, Ur Squamous Epith Cells 0-5 SEEN, Urine Bacteria 0 SEEN, Urine Mucus 0 SEEN Imaging Radiology Impression Abdomen/Pelvis CT 11/23/23 11:14 IMPRESSION: 1. A small amount of perihepatic ascites is present. A small to moderate amount of ascites is present in the pelvis.. Small amounts of free air in the pelvis is consistent with recent surgical intervention. No encapsulated fluid collection is seen to suggest an abscess. Status post hysterectomy. Unremarkable bilateral adnexal regions. 2. Curvilinear focus of high density seen adjacent to the right ovary could represent a small focus of hemorrhage although there is no visualized hemorrhage distal to this region or proteinaceous or hemorrhagic contents within a right ovarian cyst incompletely visualized on this study. 3. Gallstone. Electronically Signed: Dat Woods MD at 12:59 EST Reading Location ID and State: [facility] / [place] , Service support , Intravenous Pyelogram 11/23/23 14:50 IMPRESSION: Negative IVP Electronically Signed: Baldev Salcido MD at 15:16 EST , Assessment & Plan Assessment/Plan (1) Postoperative abdominal pain: PLAN: 43yo female POD#4 with lower abdominal pain PLAN: Plan Admit to observation Lower abdominal pain - CT & IVP show no acute intraabdominal process - continue rudd as suspect patient with incomplete bladder emptying as cause of elevated creatinine and pain. Repeat labs tomorrow.
--- OUTSIDE RECORDS SUMMARY | 2023-11-23 18:49 | XMS RPT_ITS | CCD ---
Author Name Unknown Address [address] [place] [address] Organization [facility] Care Team Providers Care Diplomatic Interpreter/Translator Name Role Phone Unavailable Primary Care Provider UnavailOdalys Crockett DO Unavailable [phone] NIKI GARCIA Referring Unavailable GARCIA, NIKI Referring [...] (SULFONAMIDE ANTIBIOTICS)] Drug Allergy 9 Unknown, Hives [facility] (9 sources) Environmental allergies [Other] Propensity to adverse reactions 6 [facility] (9 sources) Grass pollen; Translations: [GRASS POLLEN] Drug Allergy 6 [facility] (1 source) OTHER; Translations: [OTHER] Propensity to adverse reactions (disorder) 6 [facility] Repository Medications Current Medications Medication Drug Class(es) [...] 92.44 kg Edilberto Bronson MD Work Phone: [facility] 10-07-2023 08:34-0500 Diastolic blood pressure 94 mm[Hg] Edilberto Bronson MD Work Phone: [facility] 10-07-2023 08:34-0500 Systolic blood pressure 138 mm[Hg] Edilberto Bronson MD Work Phone: [facility] 09-24-2023 14:49-0500 Body weight 92.08 kg Princess Combs APRN.CNM Work Phone: [facility] 09-24-2023 14:49-0500 Diastolic blood pressure 76 mm[Hg] Princess Combs APRN.CNM Work Phone: [facility] 09-24-2023 14:49-0500 Systolic blood pressure 122 mm[Hg] Princess Combs APRN.CNM Work Phone: [facility] 01-29-2023 10:14-0400 Body weight 107.05 kg Niki Garcia GLOBAL CLINICAL LEADER.LEATHER DRIER Work Phone: [facility] 01-29-2023 10:14-0400 Diastolic blood pressure 94 mm[Hg] Niki Garcia GLOBAL CLINICAL LEADER.LEATHER DRIER Work Phone: [facility] 01-29-2023 10:14-0400 Systolic blood pressure 172 mm[Hg] Niki Garcia GLOBAL CLINICAL LEADER.LEATHER DRIER Work Phone: [facility] 11-30-2022 14:50-0500 Body height 167.6 cm Chelsie Ames MD Work Phone: [facility] 11-30-2022 14:50-0500 Body weight 104.78 kg Chelsie Ames MD Work Phone: [facility] 11-30-2022 14:50-0500 Diastolic blood pressure 80 mm[Hg] Chelsie Ames MD Work Phone: [facility] 11-30-2022 14:50-0500 Systolic blood pressure 128 mm[Hg] Chelsie Ames MD Work Phone: [facility] 03-31-2022 17:07-0400 Body height 167.6 cm Chelsie Ames MD Work Phone: [facility] 03-31-2022 17:07-0400 Body weight 102.97 kg Chelsie Ames MD Work Phone: [facility] Encounters Encounter Date Encounter Type Care Provider Facility Start: 11-08-2023 End: 11-08-2023 ambulatory EDILBERTO BRONSON Facility:[facility] Start: 10-07-2023 End: 10-07-2023 ambulatory EDILBERTO BRONSON Facility:[facility] Start: 10-07-2023 End: 10-07-2023 ambulatory EDILBERTO BRONSON Facility:[facility] Start: 10-07-2023 End: 10-07-2023 Patient encounter procedure Edilberto Bronson MD Work Phone: OB/Gynecology Procedures Date Procedure Procedure Detail Performing Clinician Start: 09-24-2023 Smr prim src gram/gi emsa stain bct fungi/cell Geovanna Miramontes GLOBAL CLINICAL LEADER.LEATHER DRIER Work Phone: Start: 11-30-2022 Us transvaginal Chelsie Ames MD Work Phone: Start: 03-31-2022 Adult depression screening assessment Chelsie Ames MD Work Phone: Start: 05-23-2020 Adult depression screening assessment Chelsie Ames MD Work Phone: H/O: surgery History of loop electrical excision procedure (LEEP) Niki Garcia APRN.LEATHER DRIER Work Phone: Plan of Treatment Date Care Activity Detail Author Start: 01-30-2028 HPV TESTING HPV TESTING [facility] Start: 01-30-2028 Screening for malignant neoplasm of cervix HPV Testing [facility] Start: 03-31-2027 PAP TESTING PAP TESTING [facility] Start: 03-31-2027 Screening for malignant neoplasm of cervix Pap Testing [facility] Start: 03-08-2024 HPV TESTING HPV TESTING [facility] Start: 03-08-2024 PAP TESTING PAP TESTING [facility] Start: 06-25-2023 Influenza vaccination [facility] Start: 03-31-2023 Adult depression screening assessment DEPRESSION SCREENING [facility] Start: 10-25-2022 DEPRESSION ASSESSMENT DEPRESSION ASSESSMENT [facility] Start: 06-25-2022 Influenza vaccination [facility] Start: 05-23-2021 Adult depression screening assessment DEPRESSION SCREENING [facility] Start: 2019 Mammography [facility] Start: 2019 Screening for malignant neoplasm of breast Mammogram Screening [facility] Start: 1998 ONE PNEUMOVAX PRIOR TO AGE 65 ONE PNEUMOVAX PRIOR TO AGE 65 [facility] Start: 1998 Urine microalbumin profile [facility] Start: 1997 HEPATITIS C SCREENING HEPATITIS C SCREENING [facility] Start: 1997 Hepatitis C screening Hepatitis C Screening [facility] Start: 01-27-1984 COVID-19 VACCINE (#1) COVID-19 VACCINE (#1) [facility] Start: 1979 COVID-19 VACCINE (#1) COVID-19 VACCINE (#1) [facility] Start: 1979 HEPATITIS B (1 of 3 - 3-dose series) HEPATITIS B (1 of 3 - 3-dose series) [facility] Start: 1979 Hepatitis B Vaccine (1 of 3 - 3-dose series) Hepatitis B Vaccine (1 of 3 - 3-dose series) [facility] BACTERIAL VAGINOSIS AMPLIFICATION BACTERIAL VAGINOSIS AMPLIFICATION Lab Routine Pelvic pain in female 01/29/2023 11:45 AM EDT [facility] Work Phone: KEISHA / TRICHOMONA S AMPLIFICATION KEISHA / TRICHOMONAS AMPLIFICATION Microbiology Routine Pelvic pain in female 01/29/2023 11:45 AM EDT [facility] Work Phone: Chlamydia trachomatis+Neisseria gonorrhoeae DNA [Presence] in Unspecified specimen by MELLISSA with probe detection GC/CHLAMYDIA DNA DET Lab Routine Screen for STD (sexually transmitted disease) Pelvic pain in female 01/29/2023 11:45 AM EDT [facility] Work Phone: Endometrial bx w/wo endocervix bx w/o dilat spx ENDOMETRIAL BIOPSY Procedures Routine Menorrhagia with regular cycle Pelvic pain in female Ordered: 01/29/2023 [facility] Work Phone: Payers Date Payer Category Payer Unknown [employer]MO [employer] PPO [id number] 2022-Present [phone] [address] [place] [address] PPO [id number] 2022 Unknown [id number] Social History Date Type Detail Facility Start: 11-30-[address] [facility] [facility] Work Phone: End: 09-16-2010 History of tobacco use Current smoker [facility] Work Phone: End: 09-16-2010 History of tobacco use Cigarette Smoker [facility] Work Phone: Start: 09-17-2021 End: 10-07-2023 Alcohol intake Current drinker of alcohol (finding) [facility] Start: 09-23-2010 History SDOH Alcohol Comment Rare,NOT WHILE [facility] Start: 1979 Sex Assigned At Female [facility] Start: 03-21-2022 End: 03-31-2022 Exposure to SARS-CoV-2 (event) Not sure [facility] Start: 11-30-2022 End: 02-26-2023 Cigarettes smoked current (pack per day) - Reported 0.5 [facility] Start: 11-30-2022 Tobacco use and exposure Smokeless tobacco non-user [facility] Start: 02-26-2023 End: 09-24-2023 Tobacco use panel [facility] Adult Depression Screening Assessment 1 [facility] Start: 08-27-2021 Gender identity Identifies as female gender (finding) [facility] Start: 08-27-2021 Sexual orientation Heterosexual (fin ding) [facility] Clinical Notes 11-11-2010 to 11-19-2023 Edilberto Bronson MD - 10/07/2023 8:29 AM ESTTelephone Encounter - Edilberto Bronson MD - 10/04/2023 4:56 PM ESTTelephone Encounter - Mariam Beltre LPN - 10/01/2023 7:57 AM EST Note Date & Type Note Facility 11-19-2023 Note HNO ID: [id number] Author: EDILBERTO BRONSON MD Service: ? Author Type: Physician Type: Progress Notes Filed: 11/19/2023 12:23 Note Text: Patient underwent TLH, bilateral salpingectomy for adenomyosis, chronic pelvic pain, dysmenorrhea and menorrhagia on at [facility]. She was d/herbie home same day. Pathology pending. Edilberto Bronson MD [facility] 11-08-2023 Note HNO ID: [id number] Author: EDILBERTO BRONSON MD Service: ? Author [...] L2 SAB1 IAB0 Ectopic0 Multiple0 Live Births2 Picking Table Worker History LMP: 10/02/2023, IUD Age at Menarche: Age at First : Age at Menopause: Picking Table Worker History Comments: Sexual Activity: Yes; Male Contraception: [...] Reviewed previous surgical history. Edilberto Bronson MD [facility] 10-07-2023 Note HNO ID: [id number] Author: Terri Gaitan RT(R) Service: ? Author Type: Autopsy Pathologist Type: Progress Notes Filed: 10/07/2023 10:30 AM [...] RT Nicolasa(R) October 07, 2023 10:29 AM [facility] 10-07-2023 Note HNO ID: [id number] Author: Edilberto Bronson MD Service: ? 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 Hasn't helped the pain, feels like the [...] L2 SAB1 IAB0 Ectopic0 Multiple0 Live Births2 Picking Table Worker History LMP: 10/02/2023, IUD Age at Menarche: Age at First : Age at Menopause: Picking Table Worker History Comments: Sexual Activity: Yes; Male Contraception: [...] external genitalia normal, normal Bartholin's glands, urethra, Clarkson's glands, no vulvar lesions, no cervical lesions, [...] failed conservative measures including IUD. Short and ad terminal makeup operator risks of hyst reviewed. Postop limitations and expectations reviewed. D/w her may get exacerbation of pain since has chronic pain. She would like to proceed w/ hyst. IUD is helping decrease flow but still bleeding frequently, so will leave it i (more content not included)... 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 Hasn't helped the pain, feels like the [...] L2 SAB1 IAB0 Ectopic0 Multiple0 Live Births2 Picking Table Worker History LMP: 10/02/2023, IUD Age at Menarche: Age at First : Age at Menopause: Picking Table Worker History Comments: Sexual Activity: Yes; Male Contraception: [...] external genitalia normal, normal Bartholin's glands, urethra, Clarkson's glands, no vulvar lesions, no cervical lesions, [...] failed conservative measures including IUD. Short and ad terminal makeup operator risks of hyst reviewed. Postop limitations and [...] 4 - Moderate documented in this encounter [facility] 10-04-2023 Miscellaneous Notes Schedule w/ one the physicians -SW/RR/DM to discuss pain and adneomyosis, possible hysterectomy. Edilberto Bronson MD documented in this encounter [facility] 10-01-2023 Miscellaneous Notes See Intrakr message Patient is ok with a virtual [...] Princess Combs APRN.CNM documented in this encounter [facility] 09-28-2023 Note HNO ID: [id number] Author: Niharika Brito RDMS Service: ? Author Type: Autopsy Pathologist Type: Progress Notes Filed: 09/28/2023 11:25 AM [...] Brito RDMS September 28, 2023 11:25 AM [facility] 09-28-2023 History of Present illness Narrative [...] 2023 11:25 AM documented in this encounter [facility] 09-24-2023 Note HNO ID: [id number] Author: Princess Combs APRN.CNM Service: ? Author Type: Dry Placer Machine Operator Type: Progress Notes Filed: 09/28/2023 3:54 PM Note Text: Palmira Laguerre is a 43 year old female who presents for problem visit for pelvic pain. HPI: Pelvic pain, warm, achy, pinching, full. Bleeding has been constant since June. Not always heavy but always there. Bleeding comes always after intercourse. Pain with intercourse. Mirena IUD in place, placed 02/20/23. 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 Pelvic pain was still present prior to IUD with menses and at other times but worse after IUD. Tubal ligation. OB History T1 L2 SAB1 IAB0 Ectopic0 Multiple0 Live Births2 Picking Table Worker History LMP: 02/20/2023 (Exact Date), IUD Age at Menarche: Age at First : Age at Menopause: Picking Table Worker History Comments: Sexual Activity: Yes; Male Contraception: [...] external genitalia normal, normal Bartholin's glands, urethra, Clarkson's glands, no vulvar lesions, no cervical lesions, [...] US FEMALE PELVIS TRANSVAG - 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 PELVIC PAIN - BACT/KEISHA VAG GRAM STAIN 2. IUD (intrauterine device) in place - ICD9: V45.51, ICD10: Z97.5 3. Dyspareunia, female - ICD9: 625.0, ICD10: N94.10 4. Postcoital and contact bleeding - ICD9: 626.7, ICD10: N93.0 -Previous round of doxycycline. Discussed can try Rocephin injection and see if this helps. Princess Combs APRN.ALONSOM [facility] 09-24-2023 Nurse Note The patient is here for an injection of Rocephin, reconstituted with 0.9 ml of Xylocaine 1% without Epinephrine (Lot #: [id number], Exp. date: 12/21). Dose: 500 MG Amount wasted: none. Route: Intramuscular Site: left upper quadrant gluteus Bilingual Customer Service Specialist: [employer] Lot #: [id number] Expiration Date: 02/2025 The date due for the next injection is n/a Patient was observed in the office for 15 minutes. No signs of allergic reaction. Elo Montana RN documented in this encounter [facility] 09-24-2023 History of Present illness Narrative Palmira Laguerre is a 43 year old female who presents for problem visit for pelvic pain. HPI: Pelvic pain, warm, achy, pinching, full. Bleeding has been constant since June. Not always heavy but always there. Bleeding comes always after intercourse. Pain with intercourse. Mirena IUD in place, placed 02/20/23. 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 Pelvic pain was still present prior to IUD with menses and at other times but worse after IUD. Tubal ligation. OB History T1 L2 SAB1 IAB0 Ectopic0 Multiple0 Live Births2 Picking Table Worker History LMP: 02/20/2023 (Exact Date), IUD Age at Menarche: Age at First : Age at Menopause: Picking Table Worker History Comments: Sexual Activity: Yes; Male Contraception: [...] external genitalia normal, normal Bartholin's glands, urethra, Clarkson's glands, no vulvar lesions, no cervical lesions, [...] US FEMALE PELVIS TRANSVAG - 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 PELVIC PAIN - BACT/KEISHA VAG GRAM STAIN 2. IUD (intrauterine device) in place - ICD9: V45.51, ICD10: Z97.5 3. Dyspareunia, female - ICD9: 625.0, ICD10: N94.10 4. Postcoital and contact bleeding - ICD9: 626.7, ICD10: N93.0 -Previous round of doxycycline. Discussed can try Rocephin injection and see if this helps. Princess Combs APRN.CNM documented in this encounter [facility] 04-23-2023 Miscellaneous Notes Please see pt's mychart message. Pt no longer lives in [place]. Please see corrected pharmacy. Marilynn De Leon LPN Please review pt's Fight My Monsterhart message and further advise. Marilynn De Leon LPN documented in this encounter [facility] 04-02-2023 Note HNO ID: [id number] Author: Niki Garcia APRN.LEATHER DRIER Service: ? Author Type: Nurse Practitioner Type: Progress Notes Filed: 04/02/2023 3:13 PM Note Text: Professor Of Environmental Science offered: Patient declines. Palmira Laguerre presents today [...] Medical Decision Making Level: 4 - Moderate [facility] 02-26-2023 Note HNO ID: [id number] Author: Niki Garcia APRN.CARLOS Service: ? Author [...] IUD source: office provided IUD lot #: [id number] Exp date: 03/23/2025 UNIVERSAL PROTOCOL / SAFETY [...] up in one month. Niki Garcia APRN.CNP [facility] 02-22-2023 Miscellaneous Notes EMB and IUD insertion scheduled. Mery Baker RN Pt phoned in to get scheduled for an IUD insertion and cervical biopsy. She started her period on 02/21/2023. Marti Mark February 22, 2023 12:23 PM documented in this encounter [facility] 02-01-2023 Miscellaneous Notes Resent RX. Isis Toledo APRN.CARLOS Patient notified and voiced understanding. Rx sent to incorrect pharmacy. Please resend with updated pharmacy. Olivia Dempsey RN +yeast, Diflucan ordered. Isis Toledo APRN.CNP documented in this encounter [facility] 01-29-2023 Note HNO ID: [id number] Author: Niki Garcia APRN.CNP Service: ? Author Type: Nurse Practitioner Type: Progress Notes Filed: 01/29/2023 5:49 PM Note Text: Professor Of Environmental Science offered: Patient declines. Palmira Laguerre is a [...] L2 SAB1 IAB0 Ectopic0 Multiple0 Live Births2 Picking Table Worker History LMP: 11/11/2022 (Exact Date), Having periods Age at Menarche: Age at First : Age at Menopause: Picking Table Worker History Comments: Sexual Activity: Yes; Male Contraception: [...] use: No Current Outpatient Medications Medication Sig wfteqxaow-dtghswrje-tmwrmldyss (MYFEMBREE) 40-1-0.5 mg tablet Take 1 tablet [...] external genitalia normal, normal Bartholin's glands, urethra, Clarkson's glands, no vulvar lesions, no cervical lesions, [...] testing 2010. Last (more content not included)... [facility] 01-29-2023 Instructions Niki Garcia APRN.CNP - 01/29/2023 11:01 AM EDT Schedule when on menses or not Ibuprofen 600-800 prior to appointment Vaginal cytotec Eat before appointment. documented in this encounter [facility] 01-29-2023 History of Present illness Narrative Professor Of Environmental Science offered: Patient declines. Palmira Laguerre is a [...] L2 SAB1 IAB0 Ectopic0 Multiple0 Live Births2 Picking Table Worker History LMP: 11/11/2022 (Exact Date), Having periods Age at Menarche: Age at First : Age at Menopause: Picking Table Worker History Comments: Sexual Activity: Yes; Male Contraception: [...] use: No Current Outpatient Medications Medication Sig qovyimsid-oyoulomgy-pewpmwtuvv (MYFEMBREE) 40-1-0.5 mg tablet Take 1 tablet [...] external genitalia normal, normal Bartholin's glands, urethra, Clarkson's glands, no vulvar lesions, no cervical lesions, [...] which included preparing to see the patient, dozw-os-kfbe patient care, completing clinical documentation, obtaining and/or reviewing separately obtained history, performing a medically appropriate examination, counseling and educating the patient/family/caregiver, and ordering medications, tests, or procedures. documented in this encounter [facility] 12-02-2022 Miscellaneous Notes Mert approved from 11/02/22-12/02/23 case [id number]. Niki Lopez documented in this encounter [facility] 11-30-2022 History of Present illness [...] No history of dysuria, frequency or incontinence FLIGHT ENGINEER HELICOPTER: Negative for abnormal vaginal bleeding, abnormal vaginal [...] MD Elo Wagner documented in this encounter [facility] 11-30-2022 History of Present illness Narrative Patient here for FLIGHT ENGINEER HELICOPTER PELVIC US. Ritika Combs [facility] documented in this encounter [facility] 03-31-2022 History of Present illness [...] No history of dysuria, frequency or incontinence FLIGHT ENGINEER HELICOPTER: Negative for abnormal vaginal bleeding, abnormal vaginal [...] MD Elo Vj documented in this encounter [facility] 03-10-2022 History of Present illness Narrative The following approved medication requests have been transmitted electronically. Signed Prescriptions Disp Refills valACYclovir (VALTREX) 500 mg tablet 90 tablet 0 Sig: Take 1 tablet by mouth once daily. 1 tablet twice daily prn outbreak x 3d then 1 daily for suppression LEEANN: No Chelsie Ames MD documented in this encounter [facility] 09-17-2021 Note HNO ID: [id number] Author: Frida Zeng LPN Service: ? Author [...] Negative for excessive bleeding, clots, bleeding disorders. [facility] 09-17-2021 Note HNO ID: [id number] Author: Marion June DPM Service: ? Author [...] improve or worsen. (more content not included)... [facility] 08-27-2021 Note HNO ID: [id number] Author: Yanira Groves MA Service: ? Author Type: Manager Food Type: Progress Notes Filed: 09/11/2021 9:00 AM [...] bleeding, clots, bleeding disorders. Yanira Groves MA [facility] 08-27-2021 Note HNO ID: [id number] Author: Marion June DPM Service: ? Author [...] pain is exa (more content not included)... 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/12/2011 10/07/2023 Previous delivery, antepartum condition or complication 11/11/2010 08/02/2019 SUPRF HIGH RISK NEC [V23.89] 11/11/2010 08/02/2019 Personal history of pre-term labor 11/11/2010 10/07/2023 documented as of this encounter (statuses as of 10/09/2023) [facility] History of Past illness Narrative* Problem Noted Date Resolved Date Previous delivery, antepartum condition or complication 11/11/2010 08/02/2019 SUPRF HIGH RISK NEC [V23.89] 08/02/2019 documented as of this encounter (statuses as of 03/10/2022) [facility] of Past illness Narrative* Problem Noted Date Resolved Date Previous delivery, antepartum condition or complication 11/11/2010 08/02/2019 SUPRF HIGH RISK NEC [V23.89] 1 08/02/2019 documented as of this encounter (statuses as of 03/31/2022) [facility] of [facility] illness Narrative* Problem Noted Date Resolved Date Previous delivery, antepartum condition or complication 11/11/2010 08/02/2019 SUPRF HIGH RISK NEC [V23.89] 08/02/2019 documented as of this encounter (statuses as of 11/30/2022) [facility] of [facility] illness Narrative* Problem Noted Date Resolved Date Previous delivery, antepartum condition or complication 11/11/2010 08/02/2019 SUPRF HIGH RISK NEC [V23.89] 1 08/02/2019 documented as of this encounter (statuses as of 12/01/2022) [facility] of [facility] illness Narrative* Problem Noted Date Resolved Date Previous delivery, antepartum condition or complication 11/11/2010 08/02/2019 SUPRF HIGH RISK NEC [V23.89] 08/02/2019 documented as of this encounter (statuses as of 12/02/2022) [facility] of [facility] Narrative* Problem Noted Date Resolved Date Previous delivery, antepartum condition or complication 11/11/2010 08/02/2019 SUPRF HIGH RISK NEC [V23.89] 08/02/2019 documented as of this encounter (statuses as of 01/30/2023) [facility] Narrative* Problem Noted Date Resolved Date Previous delivery, antepartum condition or complication 11/11/2010 08/02/2019 SUPRF HIGH RISK NEC [V23.89] 08/02/2019 documented as of this encounter (statuses as of 02/01/2023) [facility] Narrative* Problem Noted Date Resolved Date Previous delivery, antepartum condition or complication 11/11/2010 08/02/2019 SUPRF HIGH RISK NEC [V23.89] 08/02/2019 documented as of this encounter (statuses as of 02/23/2023) [facility] Narrative* Problem Noted Date Resolved Date Previous delivery, antepartum condition or complication 11/11/2010 08/02/2019 SUPRF HIGH RISK NEC [V23.89] 08/02/2019 documented as of this encounter (statuses as of 04/24/2023) [facility] Narrative* Problem Noted Date Diagnosed Date Resolved Date Previous delivery, antepartum condition or complication 11/11/2010 08/02/2019 SUPRF HIGH RISK NEC [V23.89] 11/11/2010 08/02/2019 documented as of this encounter (statuses as of 09/29/2023) [facility] of [facility] illness Narrative* Problem Noted Date Diagnosed Date Resolved Date Previous delivery, antepartum condition or complication 11/11/2010 08/02/2019 SUPRF HIGH RISK NEC [V23.89] 11/11/2010 08/02/2019 documented as of this encounter (statuses as of 09/29/2023) [facility] of [facility] Narrative* Problem Noted Date Diagnosed Date Resolved Date Previous delivery, antepartum condition or complication 11/11/2010 08/02/2019 [facility] HIGH RISK NEC [V23.89] 11/11/2010 08/02/2019 documented as of this encounter (statuses as of 10/05/2023) [facility] Diagnosis HSV-2 seropositive Other and unspecified nonspecific immunological findings [facility] [facility]* Diagnosis Gynecologic exam normal- Primary Cervical cancer screening Screening for malignant neoplasm of the cervix Breast cancer screening by mammogram HSV-2 seropositive Other and unspecified nonspecific immunological findings Menorrhagia with regular cycle Excessive or frequent menstruation [facility] Diagnosis Pelvic pain in female- Primary Unspecified symptom associated with female genital organs Other specified dyspareunia [facility] Diagnosis Pelvic pain in female- Primary Unspecified symptom associated with female genital organs Other specified dyspareunia Fibroid Leiomyoma of uterus, unspecified Menorrhagia with regular cycle Excessive or frequent menstruation [facility] Diagnosis Menorrhagia with regular cycle- Primary Excessive or frequent menstruation Pelvic pain in female Unspecified symptom associated with female genital organs Special screening examination for human papillomavirus (HPV) History of loop electrical excision procedure (LEEP) Other postprocedural status Screen for STD (sexually transmitted disease) Screening examination for venereal disease [facility] Diagnosis Pain due to intrauterine contraceptive device (IUD), initial encounter (HCC) [facility] Diagnosis Pelvic pain in female- Primary Unspecified symptom associated with female genital organs IUD (intrauterine device) in place Presence of intrauterine contraceptive device Dyspareunia, female Dyspareunia Postcoital and contact bleeding Postcoital bleeding [facility] Diagnosis Pelvic pain in female Unspecified symptom associated with female genital organs [facility] Diagnosis Menorrhagia with regular cycle- Primary Excessive or frequent menstruation HSV-2 seropositive Other and unspecified nonspecific immunological findings Encounter for screening mammogram for malignant neoplasm of breast Other screening mammogram Chronic pelvic pain in female Unspecified symptom associated with female genital organs Adenomyosis Endometriosis of uterus documented in this encounter [facility] for referral (narrative)* Diagnostic Procedure Only (Routine) - Pending Review Specialty Diagnoses / Procedures Referred By Isra bhandari Referred To Contact [facility] Diagnoses Gynecologic exam normal Breast cancer screening by mammogram Procedures ELTON SCREENING SCREENING MAMMOGRAPHY BI 2-VIEW BREAST INC CAD Chelsie Ames MD [address] [address] [facility] [address] [place] [address] Referral ID Status Reason Start Date Expiration Date Visits Requested Visits Authorized [id number] Pending Review Auto-Generat ed Referral 03/31/2022 04/30/2023 1 1 [facility] for referral (narrative)* Diagnostic Procedure Only (Routine) - Pending Review Specialty Diagnoses / Procedures Referred By Isra bhandari Referred To Contact [facility] Diagnoses Pelvic pain in female Other specified dyspareunia Procedures US FEMALE PELVIS TRANSVAG US TRANSVAGINAL Chelsie Ames MD [address] [address] [facility] Referral ID Status Reason Start Date Expiration Date Visits Requested Visits Authorized [id number] Pending Review Auto-Generat ed Referral 11/30/2022 12/30/2023 1 1 [facility] for referral (narrative)* Outpatient Procedure (Routine) - Pending Review Specialty Diagnoses / Procedures Referred By Isra bhandari Referred To Contact [facility] Diagnoses Menorrhagia with regular cycle Pelvic pain in female Procedures ENDOMETRIAL BIOPSY ENDOMETRIAL BX W/WO ENDOCERVIX BX W/O DILAT SPX Niki Garcia, WILFREDO.LEATHER DRIER [address] [place] [address] [facility] [address] [place] [address] Referral ID Status Reason Start Date Expiration Date Visits Requested Visits Authorized [id number] Pending Review Auto-Generat ed Referral 01/29/2023 01/29/2024 1 1 * Outpatient Procedure (Routine) - Pending Review Specialty Diagnoses / Procedures Referred By Contac t Referred To Contact [facility] Diagnoses Menorrhagia with regular cycle Pelvic pain in female Procedures INSERT INTRAUTERINE DEVICE LEVONORGESTREL IU 52MG 5 YR INSERT INTRAUTERINE DEVICE Niki Garcia APRN.CNP [address] [place] [address] [facility] [address] [place] [address] Referral ID Status Reason Start Date Expiration Date Visits Requested Visits Authorized [id number] Pending Review Auto-Generat ed Referral 01/29/2023 01/29/2024 1 [facility] Diagnostic Procedure Only (Routine) - Closed Specialty Diagnoses / Procedures Referred By Isra t Referred To Contact [facility] Diagnoses Encounter for screening mammogram for malignant neoplasm of breast Procedures ELTON SCREENING W DIOGO SCREENING DIGITAL BREAST TOMOSYNTHESIS BI SCREENING MAMMOGRAPHY BI 2-VIEW BREAST INC CAD Edilberto Bronson MD [address] [place] [address] [facility] [address] [place] [address] Referral ID Status Reason Start Date Expiration Date V isits Requested Visits Authorized [id number] Closed Auto-Generate d Referral 10/07/2023 11/05/2024 1 1 [facility] Summary Purpose Family History No [...] Ames MD [address] [place] [address] Referral ID Status Reason Start Date Expiration Date V isits Requested Visits Authorized [id number] Pending Review 1 1 Specialty Diagnoses / Procedures Referred By Contac t Referred To Contact Diagnoses Pelvic pain in female Procedures 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 PELVIC PAIN OFFICE/OUTPATIENT NEW HIGH MDM 60-74 MINUTES Princess Combs APRN.CNM [address] [place] [address] Referral ID Status Reason Start Date Expiration Date Visits Requested Visits Authorized [id number] Authorized PCP Requested Referral Auto-Generate d Referral 09/24/2023 09/23/2024 1 1 Specialty Diagnoses / Procedures Referred By Contac t Referred To Contact [facility] Diagnoses Pelvic pain in female Procedures US FEMALE PELVIS TRANSVAG US TRANSVAGINAL Princess Combs APRN.CNM [address] [place] [address] [place] [address] Referral ID Status Reason Start Date Expiration Date V isits Requested Visits Authorized [id number] Closed Auto-Generate d Referral 09/24/2023 10/23/2024 1 [...] DATE CREATED AUTHOR AUTHOR'S ORGANIZ ATION 09/24/2021 [facility] DATE CREATED AUTHOR AUTHOR'S ORGANIZ ATION 11/21/2023 [facility] Source Comments (unrecognize d section and content) In the event this informatio n is protected by the Federal Confidentiality of Alcohol and Drug Abuse Patient Records regulations: The Federal rules restrict any use of the information to criminally investigate or prosecute any alcohol or drug abuse patient.[facility] the event this information is protected by the Federal Confidentiality of Alcohol and Drug Abuse Patient Records regulations: The Federal rules restrict any use of the information to criminally investigate or prosecute any alcohol or drug abuse patient.[facility] the event this information is protected by the Federal Confidentiality of Alcohol and Drug Abuse Patient Records regulations: The Federal rules restrict any use of the information to criminally investigate or prosecute any alcohol or drug abuse patient.[facility] the event this information is protected by the Federal Confidentiality of Alcohol and Drug Abuse Patient Records regulations: The Federal rules restrict any use of the information to criminally investigate or prosecute any alcohol or drug abuse patient.[facility] the event this information is protected by the Federal Confidentiality of Alcohol and Drug Abuse Patient Records regulations: The Federal rules restrict any use of the information to criminally investigate or prosecute any alcohol or drug abuse patient.[facility] the event this information is protected by the Federal Confidentiality of Alcohol and Drug Abuse Patient Records regulations: The Federal rules restrict any use of the information to criminally investigate or prosecute any alcohol or drug abuse patient.[facility] the event this information is protected by the Federal Confidentiality of Alcohol and Drug Abuse Patient Records regulations: The Federal rules restrict any use of the information to criminally investigate or prosecute any alcohol or drug abuse patient.[facility] the event this information is protected by the Federal Confidentiality of Alcohol and Drug Abuse Patient Records regulations: The Federal rules restrict any use of the information to criminally investigate or prosecute any alcohol or drug abuse patient.[facility] the event this information is protected by the Federal Confidentiality of Alcohol and Drug Abuse Patient Records regulations: The Federal rules restrict any use of the information to criminally investigate or prosecute any alcohol or drug abuse patient.[facility] the event this information is protected by the Federal Confidentiality of Alcohol and Drug Abuse Patient Records regulations: The Federal rules restrict any use of the information to criminally investigate or prosecute any alcohol or drug abuse patient.[facility] the event this information is protected by the Federal Confidentiality of Alcohol and Drug Abuse Patient Records regulations: The Federal rules restrict any use of the information to criminally investigate or prosecute any alcohol or drug abuse patient.[facility] the event this information is protected by the Federal Confidentiality of Alcohol and Drug Abuse Patient Records regulations: The Federal rules restrict any use of the information to criminally investigate or prosecute any alcohol or drug abuse patient.[facility] the event this information is protected by the Federal Confidentiality of Alcohol and Drug Abuse Patient Records regulations: The Federal rules restrict any use of the information to criminally investigate or prosecute any alcohol or drug abuse patient.[facility] the event this information is protected by the Federal Confidentiality of Alcohol and Drug Abuse Patient Records regulations: The Federal rules restrict any use of the information to criminally investigate or prosecute any alcohol or drug abuse patient.[facility] Reason for Visit (unrecogniz ed section and content) 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 Ultrasound Pelvic pain, dyspare unia Reason Comments Follow Up Reason Comments approval Reason Comments dyspareunia Reason Comments Results Reason Comments Appointment Reason Comments Irregular Menstrual Cycle Reason Comments Radiology US Specialty Diagnoses / Procedures Referred By Contac t Referred To Contact [facility] Diagnoses Pelvic pain in female Procedures US FEMALE PELVIS TRANSVAG US TRANSVAGINAL Princess Combs APRN.CNM [address] [address] [place] [address] Referral ID Status Reason Start Date Expiration Date V isits Requested Visits Authorized [id number] Closed Auto-Generate d Referral 09/24/2023 10/23/2024 1 1 Reason Comments Discussion Care Teams (unrecognized sec tion and content) Diplomatic Interpreter/Translator Relationship Specialty Start Date End Date Odalys Saab, DO [address] [place] [address] Obstetrics 12/28/22 Diplomatic Interpreter/Translator Relationship Specialty Start Date End Date Odalys Saab, DO [address] [place] [address] Obstetrics 12/28/22 Diplomatic Interpreter/Translator Relationship Specialty Start Date End Date Odalys Saab DO [address] [place] [address] Obstetrics 12/28/22 Diplomatic Interpreter/Translator Relationship Specialty Start Date End Date Odalys Saab DO [address] [place] [address] Obstetrics 12/28/22 Diplomatic Interpreter/Translator Relationship Specialty Start Date End Date Odalys Saab DO [address] [place] [address] Obstetrics 12/28/22 Diplomatic Interpreter/Translator Relationship Specialty Start Date End Date Odalys Saab DO [address] [place] [address] Obstetrics 12/28/22 Diplomatic Interpreter/Translator Relationship Specialty Start Date End Date Odalys Saab DO [address] [place] [address] Obstetrics 12/28/22 FOR RECORDS PERTAINING TO PATIENTS [...] BE BASED ON THE PRIMARY CLINICAL RECORDS. [facility] [employer] [facility]. provides no warranty or guarantee of the accuracy or completeness of information in this document.
[2023-11-23] MEDS: Acetaminophen 500 MG Tablet 1000 MG PO (20:49)
[2023-11-23] MEDS: oxyCODONE 5 MG Tablet PO (20:49)
[2023-11-23] MEDS: 0.9% Normal Saline (1000mL) 1,000 ML 150 ML IV (21:03)
[2023-11-23] MEDS: Senna/Docusate Sodium 1 Tablet 2 TABLET PO (21:08)
[2023-11-24] MEDS: 0.9% Normal Saline (1000mL) 1,000 ML 150 ML IV (05:47)
[2023-11-24] MEDS: Acetaminophen 500 MG Tablet 1000 MG PO (05:48)
[2023-11-24 05:52] VITALS: BP 132/81; PULSE 66; RESP 16; TEMP 36.7; O2SAT 99
[2023-11-24 06:33] LABS: Absolute Lymphocyte Count 1.93 X10^3/uL (0.83-4.51); Absolute Neutrophil Count 6.6 X10^3/uL (2.0-7.7); Basophil# 0.03 X10^3/uL; Basophil% 0.3 % (0-1); Eosinophil# 0.51 X10^3/uL; Eosinophils% 5.1 % (0-5); Hematocrit 41.7 % (37-47); Hemoglobin 13.4 g/dL (12.0-15.0); Lymphocyte # 1.93 X10^3/ul (0.83-4.51); Lymphocyte % 19.3 % (19-41); Mean Corp Hgb Conc 32.1 g/dL (32-36); Mean Corpuscular Hgb 28.1 pg (27.0-32.0); Mean Corpuscular Volume 87.4 fL (81-99); Mean Platelet Vol. 10.8 fl (6.2-12.0); Monocyte# 0.85 X10^3/uL; Monocyte% 8.5 % (0-10); NRBC Flagged by Analyzer 0 % (0-5); Neutrophil # 6.64 X10^3/uL (2.7-7.7); Neutrophil % 66.5 % (47-70); Platelet Count 209 K/mm3 (150-450); RBC Distribution Width CV 13.1 % (11.6-14.6); RBC Distribution Width SD 41.5 fl (35.1-43.9); Red Blood Count 4.77 M/mm3 (4.2-5.4)
[2023-11-24 07:20] LABS: ALB/GLOB Ratio 0.9 RATIO (0.9-2.4); AST(SGOT) 13 U/L (15-37); Alanine Aminotransfer ALT/SGPT 32 U/L (13-56); Albumin, Serum 3.3 g/dL (3.2-5.0); Alkaline Phosphatase 78 U/L (45-117); Anion Gap 3 (5-15); BUN 13 mg/dL (7-18); BUN/Creat Ratio 15.8 RATIO (10-20); Calcium,Total 8.9 mg/dL (8.5-10.1); Chloride 110 mmol/L (98-107); Creatinine, Serum 0.82 mg/dL (0.55-1.02); EST Glomerular Filtration Rate 80 mL/min (>60); Est Glom Filt Rate - Afr Amer 97 mL/min (>60); Estimated Creatinine Clearance 99.83 ml/min; Globulin 3.5 g/dL (2.2-4.2); Glucose 94 mg/dL (74-106); Magnesium 2.4 mg/dL (1.6-2.6); Phosphorus 3.2 mg/dL (2.5-4.9); Protein, Total 6.8 g/dL (6.4-8.2); Sodium Level 137 mmol/L (136-145)
[2023-11-24 07:30] VITALS: BP 137/86; PULSE 71; RESP 12; TEMP 36.9; O2SAT 97
[2023-11-24] MEDS: Ibuprofen 600 MG Tablet PO (08:06)
--- NOTE | 2023-11-24 08:25 | PCM.PN.OB ---
Subjective Subjective Patient had last wave of pain at 9 pm. Has felt a lot better since catheter placed. No fever or chills. NO CP or SOB. Other pain is mild. One BM since surgery, passing flatus. No nausea. Minimal vaginal spotting Objective Data Objective Data Vital Signs: Vital Signs Temp Pulse Resp BP Pulse Ox O2 Del Method 98.4 F 71 12 137/86 H 97 Room Air 11/24/23 07:30 11/24/23 07:30 11/24/23 07:30 11/24/23 07:30 11/24/23 07:30 11/24/23 08:10 Oxygen Delivery Method Room Air Weight: 91.626 kg Body Mass Index (BMI) 32.5 Intake & Output: Intake and Output for Last 24 Hours 11/22/23 11/23/23 11/24/23 23:59 23:59 23:59 Intake Total 1000 / 1300 1600 / 1600 Output Total 1000 / 1600 900 / 900 Balance 0 / -300 700 / 700 Lab / Micro Data 11/24/23 06:10 11/24/23 06:10 Labs: Laboratory Results - last 24 hr 11/23/23 11:35: WBC 11.4 H, RBC 4.86, Hgb 13.8, Hct 41.9, MCV 86.2, MCH 28.4, MCHC 32.9, RDW Std Deviation 40.3, RDW Coeff of Jessica 13.1, Plt Count 208, MPV 10.4, Immature Gran % (Auto) 0.300, Neut % (Auto) 76.4 H, Lymph % (Auto) 12.9 L, [place] % (Auto) 6.3, Eos % (Auto) 3.8, Baso % (Auto) 0.3, Absolute Neuts (auto) 8.7 H, Absolute Lymphs (auto) 1.47, Nucleated RBC % 0, Sodium 139, Potassium 4.3, Chloride 108 H, Carbon Dioxide 29.0, Anion Gap 2 L, BUN 22 H, Creatinine 1.60 H, Estim Creat Clear Calc 51.69, Est GFR (MDRD) Af Amer 45 L, Est GFR (MDRD) Non-Af 37 L, BUN/Creatinine Ratio 13.8, Glucose 102, Lactic Acid 1.3, Calcium 8.7, Total Bilirubin 0.40, AST 17, ALT 39, Alkaline Phosphatase 67, Total Protein 6.5, Albumin 3.2, Globulin 3.3, Albumin/Globulin Ratio 1.0, Lipase 26 11/23/23 12:55: Urine Color Yellow, Urine Clarity Sl. Cloudy, Urine pH 6.5, Ur Specific [place] 1.010, Urine Protein 15 H, Urine Glucose (UA) Normal, Urine Ketones Negative, Urine Occult Blood 10 H, Urine Nitrite Negative, Urine Bilirubin Negative, Urine Urobilinogen Normal, Ur Leukocyte Esterase 25 H, Urine RBC 0-5 SEEN, Urine WBC 0-5 SEEN, Ur Squamous Epith Cells 0-5 SEEN, Urine Bacteria 0 SEEN, Urine Mucus 0 SEEN 11/24/23 06:10: WBC 10.0, RBC 4.77, Hgb 13.4, Hct 41.7, MCV 87.4, MCH 28.1, MCHC 32.1, RDW Std Deviation 41.5, RDW Coeff of Jessica 13.1, Plt Count 209, MPV 10.8, Immature Gran % (Auto) 0.300, Neut % (Auto) 66.5, Lymph % (Auto) 19.3, [place] % (Auto) 8.5, Eos % (Auto) 5.1 H, Baso % (Auto) 0.3, Absolute Neuts (auto) 6.6, Absolute Lymphs (auto) 1.93, Nucleated RBC % 0, Sodium 137, Potassium 4.0, Chloride 110 H, Carbon Dioxide 24.0, Anion Gap 3 L, BUN 13, Creatinine 0.82, Estim Creat Clear Calc 99.83, Est GFR (MDRD) Af Amer 97, Est GFR (MDRD) Non-Af 80, BUN/Creatinine Ratio 15.8, Glucose 94, Calcium 8.9, Phosphorus 3.2, Magnesium 2.4, Total Bilirubin 0.70, AST 13 L, ALT 32, Alkaline Phosphatase 78, Total Protein 6.8, Albumin 3.3, Globulin 3.5, Albumin/Globulin Ratio 0.9 Radiography Diagnostic Testing: Radiology Impression Abdomen/Pelvis CT 11/23/23 11:14 IMPRESSION: 1. A small amount of perihepatic ascites is present. A small to moderate amount of ascites is present in the pelvis.. Small amounts of free air in the pelvis is consistent with recent surgical intervention. No encapsulated fluid collection is seen to suggest an abscess. Status post hysterectomy. Unremarkable bilateral adnexal regions. 2. Curvilinear focus of high density seen adjacent to the right ovary could represent a small focus of hemorrhage although there is no visualized hemorrhage distal to this region or proteinaceous or hemorrhagic contents within a right ovarian cyst incompletely visualized on this study. 3. Gallstone. Electronically Signed: Dat Woods MD at 12:59 EST , Intravenous Pyelogram 11/23/23 14:50 IMPRESSION: Negative IVP Electronically Signed: Baldev Salcido MD at 15:16 EST , Physical Exam Narrative Gen:awake, alert, NAD abd- soft, nondistended, appropriate tenderness incisions clean,dry and intact barney pad is dry Assessment & Plan (1) Postoperative pain: PLAN: likely due to urinary retention and bladder spasms, keep rudd in. Creatinine is down again. No evidence of urinary tract injury or postop hemorrhage. Home w/ antispasmodic. F/u in 2 days for voiding trial. Patient is comfortable w/ plan (2) Bladder spasms:
--- NOTE | 2023-11-24 08:32 | DCINST_ITS ---
Discharge Instructions Activity May resume sexual activity in: 6-8 weeks and - (Nothing in your vagina for 6 weeks. No vaginal or anal intercourse for 6-8 weeks) Dressing / Incision Call your doctor if you observe: Fever of 101 or Higher Cleanse incision/area with: Soap & Water and - (Your incisions have skin glue, it can get wet, leave the glue on until it falls off. ) Follow Up Care Please Follow Up With: Zuleyma Ayon MD When: With my office in 1-2 and 6 weeks or as needed. [phone] follow up on 11/26/23 as scheduled Test Results: Test results from this visit will be discussed in further detail at your follow- up appointment, if applicable. Discharge Plan Admission Admit Date/Time: 11/23/23 17:32 Primary Reason for Your Visit: Postoperative pain Attending Provider: Suri Mckeon Primary Care Provider: Care Physician,No Primary Discharge Orders/Prescriptions Prescriptions: Continued ibuprofen 600 MG tablet 600 mg PO Q6H PRN (Reason: PAIN ) 20 Days Qty: 40 1RF acetaminophen [Acetaminophen Extra Strength] 500 mg tablet 1,000 mg PO Q6H PRN (Reason: FEVER/PAIN ) 20 Days Qty: 40 1RF oxycodone 5 MG tablet 5 mg PO Q6H PRN (Reason: SEVERE PAIN ) Referrals / Follow Up: Jesus Fountain MD [Med Staff - Eating Disorder Psychologist] - Care Physician,No Primary [Primary Care Provider] - Disposition Disposition (needs filled in before D/C Order can be placed): Home, Self Care
--- NOTE | 2023-11-24 09:15 | CASEMGMT ---
TONYA SIMON Assessment Face to Face with patient for initial transition planning/care coordination assessment. TONYA SIMON introduced self and role at [facility], pt voices understanding. Pt is A&Ox4 and is resting comfortably in bed and is calm. Care providers, pharmacy, and demographics verified. Admitting dx: ABD Pain LACE Strata: 1 PCP: None, PCP list provided to pt and educated on how to set up. Specialists: Denies Preferred Pharmacy: [facility] [place] Insurance: MMO Prescription Benefit: Yes LNOK: - Shawn Nunez Living Arrangements: Pt lives at home with her and 2 children (Age 21 and 12) in a private 2 story home with a basement with handrails throughout. 2 steps to enter the home with no issues. ADLs/IADLs: Ind Transportation: Pt and pt DME: Walk in shower. Denies other DME HHC/SNF: Denies Pt?s goal: Home today Plan: Pt has a Lopez in and states that the RN is going to attach a leg bag and provide her with education regarding this prior to DC. Pt states her will drive her home today and is on the way. Pt denies further needs. Misha Joyner RN, CM
--- OUTSIDE RECORDS SUMMARY | 2023-11-24 09:15 | XMS RPT_ITS | CCD ---
Author Name Unknown Address [address] [place] [address] Organization [facility] Care Team Providers Care Ladies Underwear Operator Name Role Phone Unavailable Primary Care Provider UnavailOdalys Crockett DO Unavailable [phone] NIKI GARCIA Referring Unavailable GARCIA, NIKI Referring [...] (SULFONAMIDE ANTIBIOTICS)] Drug Allergy 9 Unknown, Hives [facility] (9 sources) Environmental allergies [Other] Propensity to adverse reactions 6 [facility] (9 sources) Grass pollen; Translations: [GRASS POLLEN] Drug Allergy 6 [facility] (1 source) OTHER; Translations: [OTHER] Propensity to adverse reactions (disorder) 6 [facility] Repository Medications Current Medications Medication [...] 92.44 kg Edilberto Bronson MD Work Phone: [facility] 10-07-2023 08:34-0500 Diastolic blood pressure 94 mm[Hg] Edilberto Bronson MD Work Phone: [facility] 10-07-2023 08:34-0500 Systolic blood pressure 138 mm[Hg] Edilberto Bronson MD Work Phone: [facility] 09-24-2023 14:49-0500 Body weight 92.08 kg Princess Combs APRN.CNM Work Phone: [facility] 09-24-2023 14:49-0500 Diastolic blood pressure 76 mm[Hg] Princess Combs APRN.CNM Work Phone: [facility] 09-24-2023 14:49-0500 Systolic blood pressure 122 mm[Hg] Princess Combs APRN.CNM Work Phone: [facility] 01-29-2023 10:14-0400 Body weight 107.05 kg Niki Garcia SCIENCE AND OPERATIONS OFFICER.WORT EXTRACTOR Work Phone: [facility] 01-29-2023 10:14-0400 Diastolic blood pressure 94 mm[Hg] Niki Garcia SCIENCE AND OPERATIONS OFFICER.WORT EXTRACTOR Work Phone: [facility] 01-29-2023 10:14-0400 Systolic blood pressure 172 mm[Hg] Niki Garcia SCIENCE AND OPERATIONS OFFICER.WORT EXTRACTOR Work Phone: [facility] 11-30-2022 14:50-0500 Body height 167.6 cm Chlesie Ames MD Work Phone: [facility] 11-30-2022 14:50-0500 Body weight 104.78 kg Chelsie Ames MD Work Phone: [facility] 11-30-2022 14:50-0500 Diastolic blood pressure 80 mm[Hg] Chelsie Ames MD Work Phone: [facility] 11-30-2022 14:50-0500 Systolic blood pressure 128 mm[Hg] Chelsie Ames MD Work Phone: [facility] 03-31-2022 17:07-0400 Body height 167.6 cm Chelsie Ames MD Work Phone: [facility] 03-31-2022 17:07-0400 Body weight 102.97 kg Chelsie Ames MD Work Phone: [facility] Encounters Encounter Date Encounter Type Care Provider Facility Start: 11-08-2023 End: 11-08-2023 ambulatory EDILBERTO BRONSON Facility:[facility] Start: 10-07-2023 End: 10-07-2023 ambulatory EDILBERTO BRONSON Facility:[facility] Start: 10-07-2023 End: 10-07-2023 ambulatory EDILBERTO BRONSON Facility:[facility] Start: 10-07-2023 End: 10-07-2023 Patient encounter procedure Edilberto Bronson MD Work Phone: OB/Gynecology Procedures Date Procedure Procedure Detail Performing Clinician Start: 09-24-2023 Smr prim src gram/gi emsa stain bct fungi/cell Geovanna Miramontes SCIENCE AND OPERATIONS OFFICER.WORT EXTRACTOR Work Phone: Start: 11-30-2022 Us transvaginal Chelsie Ames MD Work Phone: Start: 03-31-2022 Adult depression screening assessment Chelsie Ames MD Work Phone: Start: 05-23-2020 Adult depression screening assessment Chelsie Ames MD Work Phone: H/O: surgery History of loop electrical excision procedure (LEEP) Niki Garcia APRN.WORT EXTRACTOR Work Phone: Plan of Treatment Date Care Activity Detail Author Start: 01-30-2028 HPV TESTING HPV TESTING [facility] Start: 01-30-2028 Screening for malignant neoplasm of cervix HPV Testing [facility] Start: 03-31-2027 PAP TESTING PAP TESTING [facility] Start: 03-31-2027 Screening for malignant neoplasm of cervix Pap Testing [facility] Start: 03-08-2024 HPV TESTING HPV TESTING [facility] Start: 03-08-2024 PAP TESTING PAP TESTING [facility] Start: 06-25-2023 Influenza vaccination [facility] Start: 03-31-2023 Adult depression screening assessment DEPRESSION SCREENING [facility] Start: 10-25-2022 DEPRESSION ASSESSMENT DEPRESSION ASSESSMENT [facility] Start: 06-25-2022 Influenza vaccination [facility] Start: 05-23-2021 Adult depression screening assessment DEPRESSION SCREENING [facility] Start: 2019 Mammography [facility] Start: 2019 Screening for malignant neoplasm of breast Mammogram Screening [facility] Start: 1998 ONE PNEUMOVAX PRIOR TO AGE 65 ONE PNEUMOVAX PRIOR TO AGE 65 [facility] Start: 1998 Urine microalbumin profile [facility] Start: 1997 HEPATITIS C SCREENING HEPATITIS C SCREENING [facility] Start: 1997 Hepatitis C screening Hepatitis C Screening [facility] Start: 01-27-1984 COVID-19 VACCINE (#1) COVID-19 VACCINE (#1) [facility] Start: 1979 COVID-19 VACCINE (#1) COVID-19 VACCINE (#1) [facility] Start: 1979 HEPATITIS B (1 of 3 - 3-dose series) HEPATITIS B (1 of 3 - 3-dose series) [facility] Start: 1979 Hepatitis B Vaccine (1 of 3 - 3-dose series) Hepatitis B Vaccine (1 of 3 - 3-dose series) [facility] BACTERIAL VAGINOSIS AMPLIFICATION BACTERIAL VAGINOSIS AMPLIFICATION Lab Routine Pelvic pain in female 01/29/2023 11:45 AM EDT [facility] Work Phone: KEISHA / TRICHOMONA S AMPLIFICATION KEISHA / TRICHOMONAS AMPLIFICATION Microbiology Routine Pelvic pain in female 01/29/2023 11:45 AM EDT [facility] Work Phone: Chlamydia trachomatis+Neisseria gonorrhoeae DNA [Presence] in Unspecified specimen by MELLISSA with probe detection GC/CHLAMYDIA DNA DET Lab Routine Screen for STD (sexually transmitted disease) Pelvic pain in female 01/29/2023 11:45 AM EDT [facility] Work Phone: Endometrial bx w/wo endocervix bx w/o dilat spx ENDOMETRIAL BIOPSY Procedures Routine Menorrhagia with regular cycle Pelvic pain in female Ordered: 01/29/2023 [facility] Work Phone: Payers Date Payer Category Payer Unknown MMO M[employer] PPO [id number] 2022-Present [phone] [address] [place] [address] PPO [id number] 2022 Unknown [id number] Social History Date Type Detail Facility Start: 11-30-[address] [facility] Work Phone: End: 09-16-2010 History of tobacco use Current smoker [facility] Work Phone: End: 09-16-2010 History of tobacco use Cigarette Smoker [facility] Work Phone: Start: 09-17-2021 End: 10-07-2023 Alcohol intake Current drinker of alcohol (finding) [facility] Start: 09-23-2010 History SDOH Alcohol Comment Rare,NOT WHILE [facility] Start: 1979 Sex Assigned At Female C [facility] Start: 03-21-2022 End: 03-31-2022 Exposure to SARS-CoV-2 (event) Not sure [facility] Start: 11-30-2022 End: 02-26-2023 Cigarettes smoked current (pack per day) - Reported 0.5 [facility] Start: 11-30-2022 Tobacco use and exposure Smokeless tobacco non-user [facility] Start: 02-26-2023 End: 09-24-2023 Tobacco use panel [facility] Adult Depression Screening Assessment 1 [facility] Start: 08-27-2021 Gender identity Identifies as female gender (finding) [facility] Start: 08-27-2021 Sexual orientation Heterosexual (fin ding) [facility] Clinical Notes 11-11-2010 to 11-19-2023 Edilberto Bronson MD - 10/07/2023 8:29 AM ESTTelephone Encounter - Edilberto Bronson MD - 10/04/2023 4:56 PM ESTTelephone Encounter - Mariam Beltre LPN - 10/01/2023 7:57 AM EST Note Date & Type Note Facility 11-19-2023 Note HNO ID: [id number] Author: EDILBERTO BRONSON MD Service: ? Author Type: Physician Type: Progress Notes Filed: 11/19/2023 12:23 Note Text: Patient underwent TLH, bilateral salpingectomy for adenomyosis, chronic pelvic pain, dysmenorrhea and menorrhagia on at [facility]. She was d/herbie home same day. Pathology pending. Edilberto Bronson MD [facility] 11-08-2023 Note HNO ID: [id number] Author: EDILBERTO BRONSON MD Service: ? Author [...] L2 SAB1 IAB0 Ectopic0 Multiple0 Live Births2 [employer] History LMP: 10/02/2023, IUD Age at Menarche: Age at First : Age at Menopause: [employer] History Comments: Sexual Activity: Yes; Male Contraception: [...] previous surgical history. Edilberto Bronson MD [facility] 10-07-2023 Note HNO ID: [id number] Author: Terri Gaitan RT(R) Service: ? Author Type: Energy Assistant Type: Progress Notes Filed: 10/07/2023 10:30 AM [...] Nicolasa(R) October 07, 2023 10:[address] [facility] 10-07-2023 Note HNO ID: [id number] Author: Edilberto Bronson MD Service: ? 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 Hasn't helped the pain, feels like the [...] L2 SAB1 IAB0 Ectopic0 Multiple0 Live Births2 [employer] History LMP: 10/02/2023, IUD Age at Menarche: Age at First : Age at Menopause: [employer] History Comments: Sexual Activity: Yes; Male Contraception: [...] external genitalia normal, normal Bartholin's glands, urethra, [place]'s glands, no vulvar lesions, no cervical lesions, [...] failed conservative measures including IUD. Short and extermination supervisor risks of hyst reviewed. Postop limitations and expectations reviewed. D/w her may get exacerbation of pain since has chronic pain. She would like to proceed w/ hyst. IUD is helping decrease flow but still bleeding frequently, so will leave it i (more content not included)... 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 Hasn't helped the pain, feels like the [...] L2 SAB1 IAB0 Ectopic0 Multiple0 Live Births2 [employer] History LMP: 10/02/2023, IUD Age at Menarche: Age at First : Age at Menopause: [employer] History Comments: Sexual Activity: Yes; Male Contraception: [...] external genitalia normal, normal Bartholin's glands, urethra, [place]'s glands, no vulvar lesions, no cervical lesions, [...] failed conservative measures including IUD. Short and extermination supervisor risks of hyst reviewed. Postop limitations and [...] 4 - Moderate documented in this encounter [facility] 10-04-2023 Miscellaneous Notes Schedule w/ one the physicians -SW/RR/DM to discuss pain and adneomyosis, possible hysterectomy. Edilberto Bronson MD documented in this encounter [facility] 10-01-2023 Miscellaneous Notes See [employer] message Patient is ok with a virtual [...] Princess Combs APRN.CNM documented in this encounter [facility] 09-28-2023 Note HNO ID: [id number] Author: Niharika Brito RDMS Service: ? Author Type: Energy Assistant Type: Progress Notes Filed: 09/28/2023 11:25 AM [...] RDMS September 28, 2023 11:[address] [facility] 09-28-2023 History of Present illness Narrative [...] 2023 11:25 AM documented in this encounter [facility] 09-24-2023 Note HNO ID: [id number] Author: Princess Combs APRN.CNM Service: ? Author Type: Mobile Heavy Equipment Mechanic Type: Progress Notes Filed: 09/28/2023 3:54 PM Note Text: Palmira Laguerre is a 43 year old female who presents for problem visit for pelvic pain. HPI: Pelvic pain, warm, achy, pinching, full. Bleeding has been constant since June. Not always heavy but always there. Bleeding comes always after intercourse. Pain with intercourse. Mirena IUD in place, placed 02/20/23. 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 Pelvic pain was still present prior to IUD with menses and at other times but worse after IUD. Tubal ligation. OB History T1 L2 SAB1 IAB0 Ectopic0 Multiple0 Live Births2 [employer] History LMP: 02/20/2023 (Exact Date), IUD Age at Menarche: Age at First : Age at Menopause: [employer] History Comments: Sexual Activity: Yes; Male Contraception: [...] external genitalia normal, normal Bartholin's glands, urethra, [place]'s glands, no vulvar lesions, no cervical lesions, [...] US FEMALE PELVIS TRANSVAG - CONSULT TO WILDLAND FIRE FIGHTER PELVIC PAIN - BACT/KEISHA VAG GRAM STAIN 2. IUD (intrauterine device) in place - ICD9: V45.51, ICD10: Z97.5 3. Dyspareunia, female - ICD9: 625.0, ICD10: N94.10 4. Postcoital and contact bleeding - ICD9: 626.7, ICD10: N93.0 -Previous round of doxycycline. Discussed can try Rocephin injection and see if this helps. Princess Combs APRN.ALONSOM [facility] 09-24-2023 Nurse Note The patient is here for an injection of Rocephin, reconstituted with 0.9 ml of Xylocaine 1% without Epinephrine (Lot #: [id number], Exp. date: 12/21). Dose: 500 MG Amount wasted: none. Route: Intramuscular Site: left upper quadrant gluteus Archival Records Clerk: [employer] Lot #: [id number] Expiration Date: 02/2025 The date due for the next injection is n/a Patient was observed in the office for 15 minutes. No signs of allergic reaction. Elo Monatna RN documented in this encounter [facility] 09-24-2023 History of Present illness Narrative Palmira Laguerre is a 43 year old female who presents for problem visit for pelvic pain. HPI: Pelvic pain, warm, achy, pinching, full. Bleeding has been constant since June. Not always heavy but always there. Bleeding comes always after intercourse. Pain with intercourse. Mirena IUD in place, placed 02/20/23. 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 Pelvic pain was still present prior to IUD with menses and at other times but worse after IUD. Tubal ligation. OB History T1 L2 SAB1 IAB0 Ectopic0 Multiple0 Live Births2 [employer] History LMP: 02/20/2023 (Exact Date), IUD Age at Menarche: Age at First : Age at Menopause: [employer] History Comments: Sexual Activity: Yes; Male Contraception: [...] external genitalia normal, normal Bartholin's glands, urethra, [place]'s glands, no vulvar lesions, no cervical lesions, [...] US FEMALE PELVIS TRANSVAG - CONSULT TO WILDLAND FIRE FIGHTER PELVIC PAIN - BACT/KEISHA VAG GRAM STAIN 2. IUD (intrauterine device) in place - ICD9: V45.51, ICD10: Z97.5 3. Dyspareunia, female - ICD9: 625.0, ICD10: N94.10 4. Postcoital and contact bleeding - ICD9: 626.7, ICD10: N93.0 -Previous round of doxycycline. Discussed can try Rocephin injection and see if this helps. Princess Combs APRN.CNM documented in this encounter [facility] 04-23-2023 Miscellaneous Notes Please see pt's mychart message. Pt no longer lives in [place]. Please see corrected pharmacy. Marilynn De Leon LPN Please review pt's Sciodermhart message and further advise. Marilynn De Leon LPN documented in this encounter [facility] 04-02-2023 Note HNO ID: [id number] Author: Niki Garcia APRN.WORT EXTRACTOR Service: ? Author Type: Nurse Practitioner Type: Progress Notes Filed: 04/02/2023 3:13 PM Note Text: Chip Mucker offered: Patient declines. Palmira Laguerre presents today [...] Decision Making Level: 4 - Moderate [facility] 02-26-2023 Note HNO ID: [id number] Author: Niki Garcia APRN.CARLOS Service: ? Author [...] IUD source: office provided IUD lot #: [id number] Exp date: 03/23/2025 UNIVERSAL PROTOCOL / SAFETY [...] in one month. Niki Garcia APRN.CNP [facility] 02-22-2023 Miscellaneous Notes EMB and IUD insertion scheduled. Mery Baker RN Pt phoned in to get scheduled for an IUD insertion and cervical biopsy. She started her period on 02/21/2023. Marti Mark February 22, 2023 12:23 PM documented in this encounter [facility] 02-01-2023 Miscellaneous Notes Resent RX. Isis Toledo APRN.CARLOS Patient notified and voiced understanding. Rx sent to incorrect pharmacy. Please resend with updated pharmacy. Olivia Dempsey RN +yeast, Diflucan ordered. Isis Toledo APRN.CNP documented in this encounter [facility] 01-29-2023 Note HNO ID: [id number] Author: Niki Garcia APRN.CNP Service: ? Author Type: Nurse Practitioner Type: Progress Notes Filed: 01/29/2023 5:49 PM Note Text: Chip Mucker offered: Patient declines. Palmira Laguerre is a [...] L2 SAB1 IAB0 Ectopic0 Multiple0 Live Births2 [employer] History LMP: 11/11/2022 (Exact Date), Having periods Age at Menarche: Age at First : Age at Menopause: [employer] History Comments: Sexual Activity: Yes; Male Contraception: [...] use: No Current Outpatient Medications Medication Sig sxfqqfsxs-agiddcccc-blevdbtjlu (MYFEMBREE) 40-1-0.5 mg tablet Take 1 tablet [...] external genitalia normal, normal Bartholin's glands, urethra, [place]'s glands, no vulvar lesions, no cervical lesions, [...] 2010. Last (more content not included)... [facility] 01-29-2023 Instructions Niki Garcia APRN.CNP - 01/29/2023 11:01 AM EDT Schedule when on menses or not Ibuprofen 600-800 prior to appointment Vaginal cytotec Eat before appointment. documented in this encounter [facility] 01-29-2023 History of Present illness Narrative Chip Mucker offered: Patient declines. Palmira Laguerre is a [...] L2 SAB1 IAB0 Ectopic0 Multiple0 Live Births2 [employer] History LMP: 11/11/2022 (Exact Date), Having periods Age at Menarche: Age at First : Age at Menopause: [employer] History Comments: Sexual Activity: Yes; Male Contraception: [...] use: No Current Outpatient Medications Medication Sig cvaiskgtk-odbzxwndh-wlebcqdzle (MYFEMBREE) 40-1-0.5 mg tablet Take 1 tablet [...] external genitalia normal, normal Bartholin's glands, urethra, [place]'s glands, no vulvar lesions, no cervical lesions, [...] which included preparing to see the patient, sxbx-wp-ppyn patient care, completing clinical documentation, obtaining and/or reviewing separately obtained history, performing a medically appropriate examination, counseling and educating the patient/family/caregiver, and ordering medications, tests, or procedures. documented in this encounter [facility] 12-02-2022 Miscellaneous Notes Mert approved from 11/02/22-12/02/23 case [id number]. Niki Lopez documented in this encounter [facility] 11-30-2022 History of Present illness Narrative [...] No history of dysuria, frequency or incontinence WILDLAND FIRE FIGHTER: Negative for abnormal vaginal bleeding, abnormal vaginal [...] MD Elo Wagner documented in this encounter [facility] 11-30-2022 History of Present illness Narrative Patient here for WILDLAND FIRE FIGHTER PELVIC US. Ritika Combs [facility] documented in this encounter [facility] 03-31-2022 History of Present illness Narrative [...] No history of dysuria, frequency or incontinence WILDLAND FIRE FIGHTER: Negative for abnormal vaginal bleeding, abnormal vaginal [...] MD Elo Vj documented in this encounter [facility] 03-10-2022 History of Present illness Narrative The following approved medication requests have been transmitted electronically. Signed Prescriptions Disp Refills valACYclovir (VALTREX) 500 mg tablet 90 tablet 0 Sig: Take 1 tablet by mouth once daily. 1 tablet twice daily prn outbreak x 3d then 1 daily for suppression LEEANN: No Chelsie Ames MD documented in this encounter [facility] 09-17-2021 Note HNO ID: [id number] Author: Frida Zeng LPN Service: ? Author [...] [facility] 09-17-2021 Note HNO ID: [id number] Author: Marion June DPM Service: ? Author [...] [facility] 08-27-2021 Note HNO ID: [id number] Author: Yanira Groves MA Service: ? Author Type: Cafeteria Director Type: Progress Notes Filed: 09/11/2021 9:00 AM [...] [facility] 08-27-2021 Note HNO ID: [id number] Author: Marion June DPM Service: ? 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 10/07/2023 Previous delivery, antepartum condition or complication 11/11/2010 08/02/2019 SUPRF HIGH RISK NEC [V23.89] 11/11/2010 08/02/2019 Personal history of pre-term labor 11/11/2010 10/07/2023 documented as of this encounter (statuses as of 10/09/2023) [facility] History of Past illness Narrative* Problem Noted Date Resolved Date Previous delivery, antepartum condition or complication 11/11/2010 08/02/2019 SUPRF HIGH RISK NEC [V23.89] 08/02/2019 documented as of this encounter (statuses as of 03/10/2022) [facility] History of Past illness Narrative* Problem Noted Date Resolved Date Previous delivery, antepartum condition or complication 11/11/2010 08/02/2019 SUPRF HIGH RISK NEC [V23.89] 1 08/02/2019 documented as of this encounter (statuses as of 03/31/2022) [facility] History of Past illness Narrative* Problem Noted Date Resolved Date Previous delivery, antepartum condition or complication 11/11/2010 08/02/2019 SUPRF HIGH RISK NEC [V23.89] 08/02/2019 documented as of this encounter (statuses as of 11/30/2022) [facility] History of Past illness Narrative* Problem Noted Date Resolved Date Previous delivery, antepartum condition or complication 11/11/2010 08/02/2019 SUPRF HIGH RISK NEC [V23.89] 1 08/02/2019 documented as of this encounter (statuses as of 12/01/2022) [facility] History of Past illness Narrative* Problem Noted Date Resolved Date Previous delivery, antepartum condition or complication 11/11/2010 08/02/2019 SUPRF HIGH RISK NEC [V23.89] 08/02/2019 documented as of this encounter (statuses as of 12/02/2022) [facility] History of Past illness Narrative* Problem Noted Date Resolved Date Previous delivery, antepartum condition or complication 11/11/2010 08/02/2019 SUPRF HIGH RISK NEC [V23.89] 08/02/2019 documented as of this encounter (statuses as of 01/30/2023) [facility] History of Past illness Narrative* Problem Noted Date Resolved Date Previous delivery, antepartum condition or complication 11/11/2010 08/02/2019 SUPRF HIGH RISK NEC [V23.89] 08/02/2019 documented as of this encounter (statuses as of 02/01/2023) [facility] History of Past illness Narrative* Problem Noted Date Resolved Date Previous delivery, antepartum condition or complication 11/11/2010 08/02/2019 SUPRF HIGH RISK NEC [V23.89] 08/02/2019 documented as of this encounter (statuses as of 02/23/2023) [facility] History of Past illness Narrative* Problem Noted Date Resolved Date Previous delivery, antepartum condition or complication 11/11/2010 08/02/2019 SUPRF HIGH RISK NEC [V23.89] 08/02/2019 documented as of this encounter (statuses as of 04/24/2023) [facility] History of Past illness Narrative* Problem Noted Date Diagnosed Date Resolved Date Previous delivery, antepartum condition or complication 11/11/2010 08/02/2019 SUPRF HIGH RISK NEC [V23.89] 11/11/2010 08/02/2019 documented as of this encounter (statuses as of 09/29/2023) [facility] History of Past illness Narrative* Problem Noted Date Diagnosed Date Resolved Date Previous delivery, antepartum condition or complication 11/11/2010 08/02/2019 SUPRF HIGH RISK NEC [V23.89] 11/11/2010 08/02/2019 documented as of this encounter (statuses as of 09/29/2023) [facility] History of Past illness Narrative* Problem Noted Date Diagnosed Date Resolved Date Previous delivery, antepartum condition or complication 11/11/2010 08/02/2019 [facility] HIGH RISK NEC [V23.89] 11/11/2010 08/02/2019 documented as of this encounter (statuses as of 10/05/2023) [facility] [place] [facility] Diagnosis HSV-2 seropositive Other and unspecified nonspecific immunological findings documented in this encounter [facility] [place] [facility] Diagnosis Gynecologic exam normal- Primary Cervical cancer screening Screening for malignant neoplasm of the cervix Breast cancer screening by mammogram HSV-2 seropositive Other and unspecified nonspecific immunological findings Menorrhagia with regular cycle Excessive or frequent menstruation documented in this encounter [facility] [place] [facility] Diagnosis Pelvic pain in female- Primary Unspecified symptom associated with female genital organs Other specified dyspareunia documented in this encounter [facility] [place] [facility] Diagnosis Pelvic pain in female- Primary Unspecified symptom associated with female genital organs Other specified dyspareunia Fibroid Leiomyoma of uterus, unspecified Menorrhagia with regular cycle Excessive or frequent menstruation documented in this encounter [facility] [place] [facility] Diagnosis Menorrhagia with regular cycle- Primary Excessive or frequent menstruation Pelvic pain in female Unspecified symptom associated with female genital organs Special screening examination for human papillomavirus (HPV) History of loop electrical excision procedure (LEEP) Other postprocedural status Screen for STD (sexually transmitted disease) Screening examination for venereal disease documented in this encounter [facility] [place] [facility] Diagnosis Pain due to intrauterine contraceptive device (IUD), initial encounter (HCC) documented [facility] this encounter [facility] [place] [facility] Diagnosis Pelvic pain in female- Primary Unspecified symptom associated with female genital organs IUD (intrauterine device) in place Presence of intrauterine contraceptive device Dyspareunia, female Dyspareunia Postcoital and contact bleeding Postcoital bleeding documented in this encounter [facility] [place] [facility] Diagnosis Pelvic pain in female Unspecified symptom associated with female genital organs [facility] [place] [facility] Diagnosis Menorrhagia with regular cycle- Primary Excessive or frequent menstruation HSV-2 seropositive Other and unspecified nonspecific immunological findings Encounter for screening mammogram for malignant neoplasm of breast Other screening mammogram Chronic pelvic pain in female Unspecified symptom associated with female genital organs Adenomyosis Endometriosis of uterus documented in this encounter [facility] for referral (narrative)* Diagnostic Procedure Only (Routine) - Pending Review Specialty Diagnoses / Procedures Referred By Isra bhandari Referred To Contact [facility] Diagnoses Gynecologic exam normal Breast cancer screening by mammogram Procedures ELTON SCREENING SCREENING MAMMOGRAPHY BI 2-VIEW BREAST INC CAD Chelsie Ames MD [address] [address] [facility] [address] [place] [address] Referral ID Status Reason Start Date Expiration Date Visits Requested Visits Authorized [id number] Pending Review Auto-Generat ed Referral 03/31/2022 04/30/2023 1 1 [facility] for referral (narrative)* Diagnostic Procedure Only (Routine) - Pending Review Specialty Diagnoses / Procedures Referred By Isra bhandari Referred To Contact [facility] Diagnoses Pelvic pain in female Other specified dyspareunia Procedures US FEMALE PELVIS TRANSVAG US TRANSVAGINAL Chelsie Ames MD [address] [address] [facility] Referral ID Status Reason Start Date Expiration Date Visits Requested Visits Authorized [id number] Pending Review Auto-Generat ed Referral 11/30/2022 12/30/2023 1 1 [facility] for referral (narrative)* Outpatient Procedure (Routine) - Pending Review Specialty Diagnoses / Procedures Referred By Isra bhandari Referred To Contact [facility] Diagnoses Menorrhagia with regular cycle Pelvic pain in female Procedures ENDOMETRIAL BIOPSY ENDOMETRIAL BX W/WO ENDOCERVIX BX W/O DILAT SPX Niki Garcia, WILFREDO.WORT EXTRACTOR [address] [place] [address] [facility] [address] [place] [address] Referral ID Status Reason Start Date Expiration Date Visits Requested Visits Authorized [id number] Pending Review Auto-Generat ed Referral 01/29/2023 01/29/2024 1 1 * Outpatient Procedure (Routine) - Pending Review Specialty Diagnoses / Procedures Referred By Contac t Referred To Contact [facility] Diagnoses Menorrhagia with regular cycle Pelvic pain in female Procedures INSERT INTRAUTERINE DEVICE LEVONORGESTREL IU 52MG 5 YR INSERT INTRAUTERINE DEVICE Niki Garcia APRN.CNP [address] [place] [address] [facility] [address] [place] [address] Referral ID Status Reason Start Date Expiration Date Visits Requested Visits Authorized [id number] Pending Review Auto-Generat ed Referral 01/29/2023 01/29/2024 1 1 [facility] Diagnostic Procedure Only (Routine) - Closed Specialty Diagnoses / Procedures Referred By Isra t Referred To Contact [facility] Diagnoses Encounter for screening mammogram for malignant neoplasm of breast Procedures ELTON SCREENING W DIOGO SCREENING DIGITAL BREAST TOMOSYNTHESIS BI SCREENING MAMMOGRAPHY BI 2-VIEW BREAST INC CAD Edilberto Bronson MD [address] [place] [address] [facility] [address] [place] [address] Referral ID Status Reason Start Date Expiration Date V isits Requested Visits Authorized [id number] Closed Auto-Generate d Referral 10/07/2023 11/05/2024 1 1 [facility] Summary Purpose Family History No Family History Records FoundNo Family History Records FoundNo Family History Records Found Advance Directives No Advanced Directives Records FoundNo Advanced Directives Records FoundNo Advanced Directives Records Found Reason for Referral Specialty Diagnoses / Procedures Referred By Isra t Referred To Contact Diagnoses Pelvic pain in female Fibroid Menorrhagia with regular cycle Chelsie Ames MD [address] [place] [address] Referral ID Status Reason Start Date Expiration Date V isits Requested Visits Authorized [id number] Pending Review 1 1 Specialty Diagnoses / Procedures Referred By Contac t Referred To Contact Diagnoses Pelvic pain in female Procedures CONSULT TO [facility] PELVIC PAIN OFFICE/OUTPATIENT NEW HIGH MDM 60-74 MINUTES Princess Combs APRN.CNM [address] [place] [address] Referral ID Status Reason Start Date Expiration Date Visits Requested Visits Authorized [id number] Authorized PCP Requested Referral Auto-Generate d Referral 09/24/2023 09/23/2024 1 1 Specialty Diagnoses / Procedures Referred By Contac t Referred To Contact [facility] Diagnoses Pelvic pain in female Procedures US FEMALE PELVIS TRANSVAG US TRANSVAGINAL Princess Combs APRN.CNM [address] [place] [address] [place] [address] Referral ID Status Reason Start Date Expiration Date V isits Requested Visits Authorized [id number] Closed Auto-Generate d Referral 09/24/2023 10/23/2024 1 [...] DATE CREATED AUTHOR AUTHOR'S ORGANIZ ATION 09/24/2021 [facility] DATE CREATED AUTHOR AUTHOR'S ORGANIZ ATION 11/21/2023 [facility] Source Comments (unrecognize d section and content) In the event this informatio n is protected by the Federal Confidentiality of Alcohol and Drug Abuse Patient Records regulations: The Federal rules restrict any use of the information to criminally investigate or prosecute any alcohol or drug abuse patient.[facility] the event this information is protected by the Federal Confidentiality of Alcohol and Drug Abuse Patient Records regulations: The Federal rules restrict any use of the information to criminally investigate or prosecute any alcohol or drug abuse patient.[facility] the event this information is protected by the Federal Confidentiality of Alcohol and Drug Abuse Patient Records regulations: The Federal rules restrict any use of the information to criminally investigate or prosecute any alcohol or drug abuse patient.[facility] the event this information is protected by the Federal Confidentiality of Alcohol and Drug Abuse Patient Records regulations: The Federal rules restrict any use of the information to criminally investigate or prosecute any alcohol or drug abuse patient.[facility] the event this information is protected by the Federal Confidentiality of Alcohol and Drug Abuse Patient Records regulations: The Federal rules restrict any use of the information to criminally investigate or prosecute any alcohol or drug abuse patient.[facility] the event this information is protected by the Federal Confidentiality of Alcohol and Drug Abuse Patient Records regulations: The Federal rules restrict any use of the information to criminally investigate or prosecute any alcohol or drug abuse patient.[facility] the event this information is protected by the Federal Confidentiality of Alcohol and Drug Abuse Patient Records regulations: The Federal rules restrict any use of the information to criminally investigate or prosecute any alcohol or drug abuse patient.[facility] the event this information is protected by the Federal Confidentiality of Alcohol and Drug Abuse Patient Records regulations: The Federal rules restrict any use of the information to criminally investigate or prosecute any alcohol or drug abuse patient.[facility] the event this information is protected by the Federal Confidentiality of Alcohol and Drug Abuse Patient Records regulations: The Federal rules restrict any use of the information to criminally investigate or prosecute any alcohol or drug abuse patient.[facility] the event this information is protected by the Federal Confidentiality of Alcohol and Drug Abuse Patient Records regulations: The Federal rules restrict any use of the information to criminally investigate or prosecute any alcohol or drug abuse patient.[facility] the event this information is protected by the Federal Confidentiality of Alcohol and Drug Abuse Patient Records regulations: The Federal rules restrict any use of the information to criminally investigate or prosecute any alcohol or drug abuse patient.[facility] the event this information is protected by the Federal Confidentiality of Alcohol and Drug Abuse Patient Records regulations: The Federal rules restrict any use of the information to criminally investigate or prosecute any alcohol or drug abuse patient.[facility] the event this information is protected by the Federal Confidentiality of Alcohol and Drug Abuse Patient Records regulations: The Federal rules restrict any use of the information to criminally investigate or prosecute any alcohol or drug abuse patient.[facility] the event this information is protected by the Federal Confidentiality of Alcohol and Drug Abuse Patient Records regulations: The Federal rules restrict any use of the information to criminally investigate or prosecute any alcohol or drug abuse patient.[facility] Reason for Visit (unrecogniz ed section and content) Reason Comments [facility] [facility] Ultrasound Pelvic pain, dyspare unia Reason Comments Follow Up Reason Comments approval Reason Comments dyspareunia Reason Comments Results Reason Comments Appointment Reason Comments Irregular Menstrual Cycle Reason Comments Radiology US Specialty Diagnoses / Procedures Referred By Contac t Referred To Contact [facility] Diagnoses Pelvic pain in female Procedures US FEMALE PELVIS TRANSVAG US TRANSVAGINAL Princess Combs APRN.CNM [address] [address] [place] [address] Referral ID Status Reason Start Date Expiration Date V isits Requested Visits Authorized [id number] Closed Auto-Generate d Referral 09/24/2023 10/23/2024 1 1 Reason Comments Discussion Care Teams (unrecognized sec tion and content) Ladies Underwear Operator Relationship Specialty Start Date End Date Odalys Saab, DO [address] [place] [address] Obstetrics 12/28/22 Ladies Underwear Operator Relationship Specialty Start Date End Date Odalys Saab, DO [address] [place] [address] Obstetrics 12/28/22 Ladies Underwear Operator Relationship Specialty Start Date End Date Odalys Saab DO [address] [place] [address] Obstetrics 12/28/22 Ladies Underwear Operator Relationship Specialty Start Date End Date Odalys Saab DO [address] [place] [address] Obstetrics 12/28/22 Ladies Underwear Operator Relationship Specialty Start Date End Date Odalys Saab DO [address] [place] [address] Obstetrics 12/28/22 Ladies Underwear Operator Relationship Specialty Start Date End Date Odalys Saab DO [address] [place] [address] Obstetrics 12/28/22 Ladies Underwear Operator Relationship Specialty Start Date End Date Odalys Saab DO [address] [place] [address] Obstetrics 12/28/22 FOR RECORDS PERTAINING TO PATIENTS [...] BE BASED ON THE PRIMARY CLINICAL RECORDS. [facility] [employer] [facility]. provides no warranty or guarantee of the accuracy or completeness of information in this document.
[2023-11-24 10:00] VITALS: BP 123/74; PULSE 65; RESP 14; TEMP 36.5; O2SAT 95
[2023-11-24] MEDS: oxyCODONE 5 MG Tablet PO (10:22)
--- NOTE | 2023-11-24 10:33 | PHA.DC_ITS ---
Pharmacy [facility] has performed discharge medication reconciliation and counseling for this patient. 1. TOLTERODINE 4MG PO DAILY X 10 DAYS The patient's discharge medication list was reviewed for discrepancies and discrepancies were resolved. The patient was counseled on the following discharge medications and changes in medications for homegoing were reviewed. The Reason for Use, instructions for use, and potential side effects were reviewed for all new medications. The patient's questions regarding all of their medications were answered. The patient was able to verbally demonstrate an understanding of their discharge medications. Medications at Discharge Home Medications acetaminophen 500 mg tablet (Acetaminophen Extra Strength) 1,000 mg (2 x 500 mg) PO Q6H PRN FEVER/PAIN 20 days #40 tabs 11/19/23 ibuprofen 600 mg tablet 600 mg PO Q6H PRN PAIN 20 days #40 TABLETS 11/19/23 oxycodone 5 mg tablet 5 mg PO Q6H PRN SEVERE PAIN 11/23/23 tolterodine 4 mg capsule,extended release 24 hr 4 mg PO DAILY #10 caps 11/24/23
== END 2023-11-24 10:54 | disposition home or self-care (01) ==
LOC: ED 11:58 → MS3 18:31
PROVIDERS: Nurse Practitioner; Admitting Provider Obstetrics & Gynecology; Emergency Provider Emergency Medicine; Visit Provider Obstetrics & Gynecology
DX: G89.18 Other acute postprocedural pain (principal); Z87.891 Personal history of nicotine dependence; K76.0 Fatty (change of) liver, not elsewhere classified; N32.89 Other specified disorders of bladder
CPT/HCPCS: 36415; 51702; 74177; 74410; 80053; 81001; 83605; 83690; 83735; 84100; 85025; 96361; 96374; 99221; 99285; J7030; Q9965; Q9967; A4216; G0378